=== PATIENT | female | born 1965 | race Caucasian/White ===

== ENCOUNTER 2020-08-23 08:45 | Outpatient (REF) | payer OTHER, SELFPAY ==
[2020-08-23 09:43] LABS: MANUAL DIFF FLAG NO
[2020-08-23 10:00] LABS: Basophils Absolute Auto 0.1 X10*3/uL (0.0-0.2); Basophils Percent Auto 1.4 % (0-2); Eosinophils Absolute Auto 0.2 X10*3/uL (0.0-0.4); Eosinophils Percent Auto 4.2 % (0-4); Glucose Urine UA NEG (NEG); Hematocrit 42.4 % (37-47); Hemoglobin 13.7 g/dl (12.0-16.0); Leukocyte Esterase Urine NEG (NEG); Lymphocytes Absolute Auto 1.6 X10*3/uL (1.2-4.9); Lymphocytes Percent Auto 37.7 % (20-40); Mean Corpuscular HGB Conc 32.3 g/dl (31.0-35.0); Mean Corpuscular Hemoglobin 29.3 pg (27.0-33.0); Mean Corpuscular Volume 90.8 fL (80-98); Mean Platelet Volume 9.8 fL (9.4-12.3); Monocytes Absolute Auto 0.3 X10*3/uL (0.1-1.2); Monocytes Percent Auto 7.4 % (2-11); Neutrophils Absolute Auto 2.1 X10*3/uL (2.0-8.3); Neutrophils Percent Auto 49.3 % (45-73); Nitrite Urine NEG (NEG); PH 6.5 (5.0-8.0); Platelet Count 241 X10*3/uL (160-400); Red Blood Count 4.67 X10*6/uL (4.20-5.50); Red Cell Distribution Width 12.7 % (11.0-16.0); Urine Blood NEG (NEG); Urine Ketones NEG (NEG); Urine Protein NEG (NEG-TRACE); White Blood Count 4.3 X10*3/uL (4.8-10.8)
[2020-08-23 10:01] LABS: Appearance Urine CLEAR; Color Urine YELLOW
[2020-08-23 10:24] LABS: Alanine Aminotransferase 14 U/L (0-31); Albumin Level 4.6 g/dL (3.5-5.0); Alkaline Phosphatase 54 U/L (39-117); Anion Gap 11 (12-20); Aspartate Amino Transferase 17 U/L (5-31); Bilirubin Total 0.4 mg/dL (0.0-1.0); Blood Urea Nitrogen 17 mg/dL (9-16); Calcium 8.8 mg/dL (8.4-10.2); Carbon Dioxide 28 mmol/L (22-29); Chloride 105 mmol/L (96-108); Cholesterol 209 mg/dL; Estimated Glomerular Filt Rate > 60; Glucose Fasting 73 mg/dL (60-99); HDL Cholesterol 55 mg/dL; LDL Cholesterol Calculated 142 mg/dl; Potassium 4.7 mmol/L (3.3-5.1); Sodium 139 mmol/L (135-145); Total Protein 6.5 g/dL (6.5-8.0); Triglycerides 61 mg/dL
[2020-08-27 14:36] LABS: Vitamin D 25-OH, D2 <4 ng/mL; Vitamin D 25-OH, D3 50 ng/mL; Vitamin D 25-OH, Total 50 ng/mL (30-100)
== END 2020-08-23 08:46 | disposition home or self-care (01) ==
LOC: HO.LAB 08:45
PROVIDERS: PCP Internal Medicine; Visit Provider Internal Medicine
DX: R42 Dizziness and giddiness (principal); E78.5 Hyperlipidemia, unspecified; R30.0 Dysuria; E55.9 Vitamin D deficiency, unspecified
CPT/HCPCS: 36415; 80053; 80061; 81003; 82306; 85025

== ENCOUNTER 2020-09-06 09:00 | Outpatient (RCR) | payer OTHER, SELFPAY ==
--- NOTE | 2020-08-28 09:50 | MHC.PT.EP ---
[facility] [place] Office [place] Office [place] Office [address] Abdiel Estrada [address] [phone] F: [phone] F: [phone] F: [phone] F: [phone] Physical Therapy Plan of Care Date of Evaluation: 08/28/20 Date of Surgery: Diagnosis: dizziness and giddiness Assessment: The patient arrived reporting symptoms consistent with BPPV or Vestibular hypofunction. The patient had mild ageotropic nystagmus in the left roll test. Pt was treated with particle repositioning (specifically the BBQ roll for the left.) The patient also has some imbalance on the foam ( soft surface) that may warrant balance therapy. The patient is an excellent candidate for skilled PT Frequency and Duration: The patient will be seen 2x/week x 4 weeks Short Term Goals: 2 weeks 1.Pt to be negative for nystagmus in all diagnostic positions for BPPV to facilitate improved functional movements. Prison Goals: 1. For the patient to be negative for nystagmus or reports of vertigo in all diagnostic positions bilaterally to resolution of BPPV in 4 weeks. 2. For the patient to be able to functionally move in all planes and directions without provocation of dizziness to show return to PLOF. 3.For the patient to be educated on symptoms and indications to return to therapy when needed in 4 weeks. Treatment Plan: Modalities to reduce pain, spasms and effusion. Manual therapy to restore motion and function. Therapeutic exercise to improve strength and flexibility. Neuromuscular re-education for posture and balance. Therapeutic activities to return to functional activities of daily living. Electronically signed by: Jennifer Holley PT DPT Please sign and return to therapist. Thank you for your referral.
--- NOTE | 2020-09-06 13:48 | MHC.PT.DC ---
[facility] [place] Office [place] Office [place] Office [address] Abdiel Estrada [address] [phone] F: [phone] F: [phone] F: [phone] F: [phone] Physical Therapy Discharge Report Diagnosis: dizziness and giddiness Date of Surgery: Date of Evaluation: 08/28/20 Date of Discharge: Treatments to Date: 2 Cancellations to Date: No Shows to Date: Discharge Status: Achieved Goals Improved Function Independent with HEP Discharge Summary: Pt was negative for BPPV today. Her VOR was normal. She had imbalance and reports of dizziness with balance activities most notable diagonal movements moving up and to the right. The patient was given a HEP to address her minor balance impairments and she was educated to return as needed for treatment of BPPV. Electronically signed by: Jennifer Holley PT DPT Please sign and return to therapist. Thank you for your referral.
== END 2020-09-06 13:49 | disposition other institution (70) ==
LOC: HO.PT 09:00
PROVIDERS: PCP Internal Medicine; Visit Provider Internal Medicine
DX: R42 Dizziness and giddiness (principal)
CPT/HCPCS: 95992; 97112; 97161

== ENCOUNTER → 2020-09-11 11:12 | Outpatient (BNVA) | payer OTHER, SELFPAY | PROVIDERS: PCP Internal Medicine; Visit Provider Advanced Practice Midwife ==

== ENCOUNTER 2020-09-12 07:52 | Outpatient (REF) | payer OTHER, SELFPAY ==
--- NOTE | ~2020-09-12 | US_ITS ---
EXAMINATION: US ABDOMEN COMPLETE CLINICAL INFORMATION: Abdominal swelling. COMPARISON: CT abdomen and pelvis noncontrast 09/11/2014, renal ultrasound 07/14/2013 TECHNIQUE: Real-time imaging of the abdominal viscera. FINDINGS: PANCREAS: The pancreas is normal in size and contour and echogenicity. There is no pancreatic ductal distention or retroperitoneal effusion. ABDOMINAL AORTA: The proximal, mid, and distal segments are normal in caliber. INFERIOR VENA CAVA: Visualized portions are normal. LIVER: Normal. The liver is normal in size. The liver contour is normal. Parenchymal echogenicity is normal. No focal hepatic lesion. There is no intrahepatic biliary duct dilatation seen. GALLBLADDER: Normal. The gallbladder is physiologically distended without evidence of stones, sludge, polyps, wall thickening or pericholecystic fluid. COMMON BILE DUCT: Normal in caliber measuring 0.4 cm in diameter. RIGHT KIDNEY: Normal. No hydronephrosis. No visible renal calculi or focal parenchymal lesions. The kidney measures 10.3 cm in maximum dimension. LEFT KIDNEY: No hydronephrosis or focal parenchymal lesions. The kidney measures 10.7 cm in maximum dimension. There is a specular echo with twinkling artifact on color Doppler left lower pole 0.3 cm consistent with nonobstructing calculus. SPLEEN: Normal. The spleen measures 10.4 cm in maximum dimension. FREE FLUID: None. US/US abdomen complete IMPRESSION: 1. Liver, pancreas, spleen, and right kidney unremarkable. 2. Small nonobstructing calculus left renal lower pole 0.3 cm. No hydronephrosis. 3. No ascites.
[2020-09-12 09:05] LABS: MANUAL DIFF FLAG NO
[2020-09-12 09:14] LABS: Basophils Absolute Auto 0.1 X10*3/uL (0.0-0.2); Basophils Percent Auto 1.3 % (0-2); Eosinophils Absolute Auto 0.1 X10*3/uL (0.0-0.4); Eosinophils Percent Auto 2.8 % (0-4); Hematocrit 42.2 % (37-47); Hemoglobin 13.3 g/dl (12.0-16.0); Imm Gran Abs Auto 0.01 X10*3/uL (0.00-0.03); Imm Gran Pct Auto 0.2 % (0.0-0.4); Lymphocytes Absolute Auto 1.7 X10*3/uL (1.2-4.9); Lymphocytes Percent Auto 37.4 % (20-40); Mean Corpuscular HGB Conc 31.5 g/dl (31.0-35.0); Mean Corpuscular Hemoglobin 28.7 pg (27.0-33.0); Mean Corpuscular Volume 90.9 fL (80-98); Mean Platelet Volume 9.6 fL (9.4-12.3); Monocytes Absolute Auto 0.3 X10*3/uL (0.1-1.2); Neutrophils Absolute Auto 2.4 X10*3/uL (2.0-8.3); Neutrophils Percent Auto 51.3 % (45-73); Platelet Count 247 X10*3/uL (160-400); Red Blood Count 4.64 X10*6/uL (4.20-5.50); Red Cell Distribution Width 12.6 % (11.0-16.0); White Blood Count 4.6 X10*3/uL (4.8-10.8)
[2020-09-12 09:53] LABS: TSH reflex Free T4 0.77 uIU/mL (0.32-4.0)
== END 2020-09-12 07:53 | disposition home or self-care (01) ==
LOC: HO.US 07:52
PROVIDERS: PCP Internal Medicine; Visit Provider Internal Medicine
DX: R19.00 Intra-abdominal and pelvic swelling, mass and lump, unspecified site (principal); R63.4 Abnormal weight loss; D72.819 Decreased white blood cell count, unspecified
CPT/HCPCS: 36415; 76700; 84443; 85025

== ENCOUNTER 2020-09-18 12:08 | Outpatient (REF) | payer OTHER, SELFPAY ==
--- NOTE | ~2020-09-18 | MM_ITS ---
EXAMINATION: MM SCREENING DIGITAL BREAST TOMOSYNTHESIS, BILATERAL CLINICAL INFORMATION: Screening. Asymptomatic. The lifetime risk of breast cancer based on the Tyrer-Cuzick Model is 6%. COMPARISON: Mammography: 09/13/2019, 07/19/2018, 06/25/2017 TECHNIQUE: Digital breast tomosynthesis is performed in both the craniocaudal and mediolateral oblique views along with computer-aided detection (CAD). Synthesized 2D images are generated from the tomosynthesis. FINDINGS: There are scattered areas of fibroglandular density (ACR BI-RADS breast composition Category b). There are no significant masses, abnormal calcifications, or other abnormalities. Parenchymal pattern is similar to prior studies. The axilla and skin contours are unremarkable. MM/MM tomosynthesis screening BI IMPRESSION: No mammographic evidence of malignancy. ASSESSMENT: BI-RADS 1: Negative RECOMMENDATION: Routine annual mammography screening. This patient's information was entered into a reminder system with a target due date for their next mammogram.
== END 2020-09-18 12:09 | disposition home or self-care (01) ==
LOC: HO.MAMMO 12:08
PROVIDERS: PCP Internal Medicine; Visit Provider Internal Medicine
DX: Z12.31 Encounter for screening mammogram for malignant neoplasm of breast (principal)
CPT/HCPCS: 77063; 77067

== ENCOUNTER 2021-03-18 17:21 | Outpatient (REF) | payer OTHER, SELFPAY ==
--- NOTE | ~2021-03-18 | XR_ITS ---
EXAMINATION: XR KNEE, RIGHT CLINICAL INFORMATION: Pain COMPARISON: Previous x-ray February 2013 TECHNIQUE: Four views of the right knee. FINDINGS: Bone alignment is normal. No fracture or dislocation is seen. The joint spaces are normal. There is no joint effusion. XR/XR knee RT 3V IMPRESSION: Normal right knee.
== END 2021-03-18 17:22 | disposition home or self-care (01) ==
LOC: HO.XRAY 17:21
PROVIDERS: PCP Internal Medicine; Visit Provider Internal Medicine
DX: M25.561 Pain in right knee (principal)
CPT/HCPCS: 73562

== ENCOUNTER 2021-03-26 08:33 | Outpatient (REF) | payer OTHER, SELFPAY ==
[2021-03-26 10:00] LABS: MANUAL DIFF FLAG NO
[2021-03-26 10:10] LABS: Basophils Absolute Auto 0.1 X10*3/uL (0.0-0.2); Eosinophils Absolute Auto 0.1 X10*3/uL (0.0-0.4); Eosinophils Percent Auto 2.1 % (0-4); Hematocrit 40.5 % (37-47); Hemoglobin 13.1 g/dl (12.0-16.0); Imm Gran Abs Auto 0.01 X10*3/uL (0.00-0.03); Imm Gran Pct Auto 0.2 % (0.0-0.4); Lymphocytes Absolute Auto 1.8 X10*3/uL (1.2-4.9); Lymphocytes Percent Auto 37.7 % (20-40); Mean Corpuscular HGB Conc 32.3 g/dl (31.0-35.0); Mean Corpuscular Hemoglobin 29.6 pg (27.0-33.0); Mean Corpuscular Volume 91.4 fL (80-98); Mean Platelet Volume 10.2 fL (9.4-12.3); Monocytes Absolute Auto 0.4 X10*3/uL (0.1-1.2); Monocytes Percent Auto 9.1 % (2-11); Neutrophils Absolute Auto 2.4 X10*3/uL (2.0-8.3); Neutrophils Percent Auto 49.9 % (45-73); Platelet Count 238 X10*3/uL (160-400); Red Blood Count 4.43 X10*6/uL (4.20-5.50); Red Cell Distribution Width 12.6 % (11.0-16.0); White Blood Count 4.9 X10*3/uL (4.8-10.8)
[2021-03-26 10:32] LABS: Alanine Aminotransferase 19 U/L (0-31); Albumin Level 4.3 g/dL (3.5-5.0); Alkaline Phosphatase 59 U/L (39-117); Anion Gap 12 (12-20); Aspartate Amino Transferase 26 U/L (5-31); Bilirubin Total 0.6 mg/dL (0.0-1.0); Blood Urea Nitrogen 14 mg/dL (9-16); Calcium 9.2 mg/dL (8.4-10.2); Carbon Dioxide 25 mmol/L (22-29); Chloride 107 mmol/L (96-108); Estimated Glomerular Filt Rate > 60; Glucose Random 76 mg/dL (60-115); Potassium 5.3 mmol/L (3.3-5.1); Sodium 139 mmol/L (135-145); Total Protein 6.7 g/dL (6.5-8.0)
[2021-03-26 10:50] LABS: Vitamin B12 732 pg/mL (200-900)
[2021-03-26 10:54] LABS: Vitamin D 25-OH Total 50.6 ng/mL (>30)
[2021-03-26 11:25] LABS: Ferritin 33 ng/mL (10-250)
== END 2021-03-26 08:34 | disposition home or self-care (01) ==
LOC: HO.LAB 08:33
PROVIDERS: PCP Internal Medicine; Visit Provider Psychiatry & Neurology Neurology
DX: G47.62 Sleep related leg cramps (principal); R06.83 Snoring; R06.81 Apnea, not elsewhere classified; M25.561 Pain in right knee
CPT/HCPCS: 36415; 80053; 82306; 82607; 82728; 84443; 85025; 99202

== ENCOUNTER → 2021-04-24 16:01 | Outpatient (REF) | payer OTHER, SELFPAY | LOC: HO.SL 16:01 | PROVIDERS: PCP Student in an Organized Health Care Education/Training Program; Visit Provider Psychiatry & Neurology Neurology | DX: R06.81 Apnea, not elsewhere classified (principal) | CPT/HCPCS: 95806 ==

== ENCOUNTER 2021-04-25 16:00 | Outpatient (RCR) | payer OTHER, SELFPAY ==
--- NOTE | 2021-04-04 15:22 | MHC.PT.EP ---
[facility] [place] Office [place] Office [place] Office [address] Abdiel Estrada [address] [phone] F: [phone] F: [phone] F: [phone] F: [phone] Physical Therapy Plan of Care Date of Evaluation: Date of Surgery: n/a Diagnosis: R knee pain Assessment: Patient is a 55 year old female presenting to PT with complaints of pain in B knees R>L. Pt reports onset of pain began about 2 weeks ago that began shortly after a fall in the shower. She presents today with impairments in pain, quad muscle length, hs muscle length, +ttp patella tendon, and hip strength. 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 Pt expresses skilled nursing goal of learning exercises and stretches to prevent further exacerbation of pain, and is motivated to work towards this in PT. Clinical presentation today is most consistent with signs and sx associated with B possible patella tendonitis and pt will benefit from skilled PT to address the following problems and impairments noted upon evaluation: pain, quad muscle length, hs muscle length, +ttp patella tendon, and hip strength. These problems limit the patient with the following functional activities: ambulation, stair negotiation, kneeling, squatting, work, and biking. The prescribed treatment plan of care is medically necessary. Co-morbidities of none were identified and taken into considerations of plan of care. Pt was educated on HEP, role of PT, prognosis, POC. Frequency and Duration: The patient will be seen 2x week x 4 weeks Short Term Goals: Pt will demonstrate negative prone quest test in 2 weeks. Pt will demonstrate improved hs length in 2 weeks. Pt will demonstrate improved hip strength by 1/3 MMT for improved lumbopelvic stability in 2 weeks. Pt will demonstrate only minimal ttp to patella tendon in 2 weeks. Group Home Goals: Pt will demonstrate good squat mechanics with minimal pain in 4 weeks for improved tolerance to work positions. Pt will demonstrate ability to negotiate stairs with min to no pain in 4 weeks for improved access to her home. Pt will demonstrate ability to complete all leisure and ADL activities with min to no pain in 4 weeks for return to PLOF. Pt will demonstrate improved LEFI score by 9 points in 4 weeks for overall improved functional mobility. Treatment Plan: Modalities to reduce pain, spasms and effusion. Manual therapy to restore motion and function. Therapeutic exercise to improve strength and flexibility. Neuromuscular re-education for posture and balance. Therapeutic activities to return to functional activities of daily living. Electronically signed by: Aida Gann, PT, DPT, ATC Please sign and return to therapist. Thank you for your referral.
--- NOTE | 2021-04-25 16:51 | MHC.PT.DC ---
[facility] [place] Office [place] Office [place] Office [address] [phone] F: [phone] F: [phone] F: [phone] F: [phone] Physical Therapy Discharge Report Diagnosis: R knee pain Date of Surgery: n/a Date of Evaluation: 04/04/21 Date of Discharge: 04/25/21 Treatments to Date: 7 Cancellations to Date: 0 No Shows to Date: 0 Discharge Status: Achieved Goals Improved Function Independent with HEP Discharge Summary: Pt has made very good progress since beginning PT. She is no longer having pain and has met all her objective and functional goals. She is independent and compliant with her HEP and she is happy with her progress at this point. Max benefits of PT have been provided and skilled PT is no longer indicated at this time. Pt is in agreement with d/c today. Electronically signed by: Aida Gann, PT, DPT, ATC Please sign and return to therapist. Thank you for your referral.
== END 2021-04-25 16:51 | disposition home or self-care (01) ==
LOC: HO.PT 16:00
PROVIDERS: PCP Internal Medicine; Visit Provider Internal Medicine
DX: M25.561 Pain in right knee (principal)
CPT/HCPCS: 97110; 97140; 97161

== ENCOUNTER → 2021-06-18 11:32 | Outpatient (BNVA) | payer OTHER, SELFPAY | PROVIDERS: PCP Internal Medicine; Referring Provider Internal Medicine; Visit Provider Psychiatry & Neurology Neurology | DX: G47.62 Sleep related leg cramps (principal); R06.83 Snoring | CPT/HCPCS: 99212 ==

== ENCOUNTER 2021-09-05 06:24 | Outpatient (REF) | payer OTHER, SELFPAY ==
[2021-09-05 07:23] LABS: Appearance Urine CLOUDY; Color Urine YELLOW; Glucose Urine UA NEG (NEG); Leukocyte Esterase Urine NEG (NEG); Nitrite Urine NEG (NEG); PH 7.5 (5.0-8.0); Urine Blood NEG (NEG); Urine Ketones NEG (NEG); Urine Protein TRACE MG/DL (NEG-TRACE)
[2021-09-05 08:04] LABS: Alanine Aminotransferase 12 U/L (0-31); Albumin Level 4.1 g/dL (3.5-5.0); Alkaline Phosphatase 67 U/L (39-117); Anion Gap 9 (12-20); Aspartate Amino Transferase 16 U/L (5-31); Bilirubin Total 0.4 mg/dL (0.0-1.0); Blood Urea Nitrogen 17 mg/dL (9-16); Calcium 9.2 mg/dL (8.4-10.2); Carbon Dioxide 31 mmol/L (22-29); Chloride 105 mmol/L (96-108); Cholesterol 190 mg/dL; Estimated Glomerular Filt Rate > 60; Glucose Fasting 74 mg/dL (60-99); HDL Cholesterol 57 mg/dL; LDL Cholesterol Calculated 119 mg/dl; Potassium 4.7 mmol/L (3.3-5.1); Sodium 140 mmol/L (135-145); Total Protein 6.1 g/dL (6.5-8.0); Triglycerides 74 mg/dL
== END 2021-09-05 06:25 | disposition home or self-care (01) ==
LOC: HO.LAB 06:24
PROVIDERS: PCP Internal Medicine; Visit Provider Internal Medicine
DX: Z00.00 Encounter for general adult medical examination without abnormal findings (principal); E78.5 Hyperlipidemia, unspecified; R30.0 Dysuria
CPT/HCPCS: 36415; 80053; 80061; 81003

== ENCOUNTER → 2021-09-12 08:15 | Outpatient (BNVA) | payer OTHER, SELFPAY | PROVIDERS: PCP Internal Medicine; Visit Provider Advanced Practice Midwife ==

== ENCOUNTER 2021-09-24 09:00 | Outpatient (REF) | payer OTHER, SELFPAY ==
--- NOTE | ~2021-09-24 | MM_ITS ---
EXAMINATION: MM SCREENING DIGITAL BREAST TOMOSYNTHESIS, BILATERAL CLINICAL INFORMATION: Screening. Asymptomatic. The lifetime risk of breast cancer based on the Tyrer-Cuzick Model is 6.7%. COMPARISON: Mammography: September 18, 2020 and studies dating back to April 29, 2014 TECHNIQUE: Digital breast tomosynthesis is performed in both the craniocaudal and mediolateral oblique views along with computer-aided detection (CAD). Synthesized 2D images are generated from the tomosynthesis. FINDINGS: The breasts are heterogeneously dense, which may obscure small masses (ACR BI-RADS breast composition Category c). There are no significant masses, abnormal calcifications, or other abnormalities. MM/MM tomosynthesis screening BI IMPRESSION: There are no significant changes from prior study. ASSESSMENT: BI-RADS 1: Negative RECOMMENDATION: Routine annual mammography screening. This patient's information was entered into a reminder system with a target due date for their next mammogram.
== END 2021-09-24 09:01 | disposition home or self-care (01) ==
LOC: HO.MAMMO 09:00
PROVIDERS: Visit Provider Internal Medicine
DX: Z12.31 Encounter for screening mammogram for malignant neoplasm of breast (principal)
CPT/HCPCS: 77063; 77067

== ENCOUNTER 2021-10-17 15:45 | Outpatient (REF) | payer OTHER, SELFPAY ==
--- NOTE | ~2021-10-17 | MR_ITS ---
EXAMINATION: MR FOOT WITHOUT AND WITH CONTRAST, LEFT CLINICAL INFORMATION: Distal 1st digit wound. Pain. Evaluate for osteomyelitis. COMPARISON: Left ankle radiographs dated 06/06/2014. TECHNIQUE: Multisequence MR imaging of the left foot was obtained before and after the IV administration of 5.5 mL Gadavist contrast on a high-field strength scanner. FINDINGS: BONE: Articular cartilage thinning/loss with small marginal osteophytes at the 1st metatarsophalangeal joint and hallux sesamoids. Minimal underlying subchondral cystic change. Full-thickness articular cartilage loss with prominent underlying subchondral cystic change at the 2nd tarsometatarsal joint with more mild degenerative changes at the 3rd tarsometatarsal joint. No stress reaction, fracture, or avascular necrosis. Minimal postcontrast enhancement along the dorsal/lateral aspect of the 1st metatarsal head which is likely degenerative. Very early osteomyelitis cannot be entirely excluded in the appropriate clinical setting given the adjacent soft tissue wound. MUSCLES/TENDONS: The visualized flexor and extensor tendons are intact. LIGAMENTS: The Lisfranc ligament is intact. SOFT TISSUES: Soft tissue wound along the medial aspect of the 1st metatarsophalangeal joint without significant subcutaneous edema or soft tissue enhancement. No organized fluid collection/abscess formation. MR/MR foot LT wo/w con IMPRESSION: 1. Soft tissue ulceration along the medial aspect of the 1st metatarsophalangeal joint without significant inflammatory change or abscess formation. 2. Mild osteoarthritis at the 1st metatarsophalangeal joint and hallux sesamoids. There is a small focus of marrow enhancement along the dorsal/lateral aspect of the 1st metatarsal head which is likely related to degenerative cystic change. Very early osteomyelitis cannot be entirely excluded given the adjacent soft tissue ulceration, however, is thought less likely due to the lack of soft tissue edema or abscess formation. 3. Severe osteoarthritis at the 2nd tarsometatarsal joint with more mild osteoarthritis at the 3rd tarsometatarsal joint.
== END 2021-10-17 15:46 | disposition home or self-care (01) ==
LOC: HO.MRI 15:45
PROVIDERS: Visit Provider Internal Medicine
DX: M86.9 Osteomyelitis, unspecified (principal)
CPT/HCPCS: 73720; A9585

== ENCOUNTER 2022-02-14 09:42 | Outpatient (REF) | payer OTHER, SELFPAY ==
--- NOTE | ~2022-02-14 | MR_ITS ---
EXAMINATION: MRI OF THE LEFT FOOT WITH AND WITHOUT CONTRAST CLINICAL INFORMATION: Follow-up post osteomyelitis. COMPARISON: 10/17/2021. TECHNIQUE: Multiplanar MR imaging was obtained through the left forefoot and midfoot on a 1.5 Lina magnet before and after intravenous administration of 5.5 cc Gadavist. FINDINGS: Soft tissue wound at the dorsomedial aspect of the 1st MTP joint is less pronounced as greater prior. There is skin thickening and edema signal in this region. Underlying marrow at the 1st metatarsal head is normal in signal intensity without appreciable edema signal to suggest osteomyelitis. Osteoarthritis at the 1st MTP joint is again noted with nonuniform cartilage loss and marginal osteophytes. Hallux valgus is noted with lateral subluxation of the hallux sesamoids. Postsurgical changes are again seen at the 1st metatarsal related to prior osteotomy. Severe osteoarthritis is again noted at the 2nd TMT joint with marked cartilage loss, subareolar cystic change, cortical irregularity, and subchondral edema signal. More kzrx-me-ijqmswyw osteophyte is present in the 3rd TMT joint and mild osteoarthritis at the other tarsometatarsal joints. Other MTP and interphalangeal joints appear relatively well preserved. No acute osseous abnormalities at the other joints. There is an adventitious bursa at the plantar aspect of the 5th metatarsal head without adventitious bursitis. A Larson's neuroma is suspected at the third interspace (image 20/32 of series 7) measuring 1.1 x 0.4 cm in cross-section, interposed between the 3rd and 4th MTP joints. MR/MR foot LT wo/w con IMPRESSION: 1. No appreciable findings of osteomyelitis or septic arthritis at the 1st MTP joint. Unchanged 1st MTP osteoarthritis 2. Severe 2nd TMT osteoarthritis with more mild 3rd TMT osteoarthritis. 3. 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
== END 2022-02-14 09:43 | disposition home or self-care (01) ==
LOC: HO.MRI 09:42
PROVIDERS: Visit Provider Internal Medicine Infectious Disease
DX: M86.9 Osteomyelitis, unspecified (principal)
CPT/HCPCS: 73720; A9585

== ENCOUNTER 2022-10-23 14:35 | Outpatient (REF) | payer OTHER, SELFPAY ==
--- NOTE | ~2022-10-23 | MM_ITS ---
EXAMINATION: BONE DENSITOMETRY CLINICAL INDICATION: Menopause. COMPARISON: This is the patient's baseline examination. TECHNIQUE: Using a [employer] DXA System (software version: 13.1) manufactured by [employer], dual-energy x-ray absorptiometry was performed of the lumbar spine and left hip. The images are of good technical quality. Summary results are attached. FINDINGS: AP SPINE L1-L4: BMD 0.800 g/cm2, Z-score -1.9, T-score -3.2, osteoporosis. LEFT FEMUR, NECK: BMD 0.715 g/cm2, Z-score -1.0, T-score -2.3, osteopenia. LEFT FEMUR, TOTAL: BMD 0.759 g/cm2, Z-score -1.0, T-score -2.0, osteopenia. IDENTIFIED RISK FACTORS: Menopause. HISTORY OF FRACTURE: None listed. MEDICATIONS: Vitamin D. MM/XR DEXA axial skeleton IMPRESSION: 1. DIAGNOSIS: Osteoporosis based on the lowest T-score value of -3.2 in the lumbar spine applying World Health Organization criteria. 2. 10-YEAR FRACTURE RISK PREDICTION, FRAX: According to the guidelines, FRAX calculation should only be performed on patients in the osteopenia bone density category. Therefore, FRAX was not performed on this patient. 3. Treatment Recommendations: NOF guidelines recommend consideration for treatment in postmenopausal women and men age 50 and older presenting with the following: -A hip or vertebral (clinical or morphometric) fracture. -T-score less than or equal to -2.5 at the femoral neck or spine after appropriate evaluation to exclude secondary causes. -Low bone mass at the hip or spine and a 10-year fracture probability by FRAX of greater than or equal to 3% for hip fracture or greater than or equal to 20% for major osteoporotic fracture based on the [place] adapted WHO algorithm. 4. Other Recommendations: All treatment decisions require clinical judgment and consideration of individual patient factors, including patient preferences, comorbidities, previous drug use, risk factors not captured in the FRAX model (e.g. frailty, falls, vitamin D deficiency, increased bone turnover, interval significant decline in bone density) and possible under or overestimation of fracture risk by FRAX. Additional medical evaluation for secondary cause of low bone mineral density may be appropriate. FUTURE SCAN RECOMMENDATION: People with diagnosed cases of osteoporosis or at high risk for fracture should have regular bone mineral density tests. For patients eligible for Medicare, routine testing is allowed once every 2 years. The testing frequency can be increased to one year for patients who have rapidly progressing disease, those who are receiving or discontinuing medical therapy to restore bone mass, or have additional risk factors.
--- NOTE | ~2022-10-23 | MM_ITS ---
EXAMINATION: MM SCREENING DIGITAL BREAST TOMOSYNTHESIS, BILATERAL CLINICAL INFORMATION: Screening. Asymptomatic. The lifetime risk of breast cancer based on the Tyrer-Cuzick Model is 7.6%. COMPARISON: Mammography: September 24, 2021 and studies dating back to June 18, 2016 TECHNIQUE: Digital breast tomosynthesis is performed in both the craniocaudal and mediolateral oblique views along with computer-aided detection (CAD). Synthesized 2D images are generated from the tomosynthesis. FINDINGS: The breasts are heterogeneously dense, which may obscure small masses (ACR BI-RADS breast composition Category c). There are no significant masses, abnormal calcifications, or other abnormalities. MM/MM tomosynthesis screening BI IMPRESSION: No significant changes ASSESSMENT: BI-RADS 1: Negative RECOMMENDATION: Routine annual mammography screening. This patient's information was entered into a reminder system with a target due date for their next mammogram.
== END 2022-10-23 14:36 | disposition home or self-care (01) ==
LOC: HO.MAMMO 14:35
PROVIDERS: PCP Internal Medicine; Visit Provider Internal Medicine
DX: Z12.31 Encounter for screening mammogram for malignant neoplasm of breast (principal); N95.9 Unspecified menopausal and perimenopausal disorder
CPT/HCPCS: 77063; 77067; 77080

== ENCOUNTER 2022-11-04 06:16 | Outpatient (REF) | payer OTHER, SELFPAY ==
[2022-11-04 06:31] LABS: MANUAL DIFF FLAG NO
[2022-11-04 07:35] LABS: Basophils Absolute Auto 0.1 X10*3/uL (0.0-0.2); Basophils Percent Auto 1.4 % (0-2); Eosinophils Absolute Auto 0.1 X10*3/uL (0.0-0.4); Eosinophils Percent Auto 3.2 % (0-4); Hematocrit 41.3 % (37.0-47.0); Hemoglobin 13.3 g/dl (12.0-16.0); Imm Gran Abs Auto 0.01 X10*3/uL (0.00-0.03); Imm Gran Pct Auto 0.2 % (0.0-0.4); Lymphocytes Absolute Auto 1.8 X10*3/uL (1.2-4.9); Lymphocytes Percent Auto 41.4 % (20-40); Mean Corpuscular HGB Conc 32.2 g/dl (31.0-35.0); Mean Corpuscular Hemoglobin 29.8 pg (27.0-33.0); Mean Corpuscular Volume 92.4 fL (80.0-98.0); Mean Platelet Volume 9.7 fL (9.4-12.3); Monocytes Absolute Auto 0.3 X10*3/uL (0.1-1.2); Neutrophils Absolute Auto 2.1 x10*3/uL (2.0-8.3); Neutrophils Percent Auto 46.8 % (45-73); Platelet Count 225 X10*3/uL (160-400); Red Blood Count 4.47 X10*6/uL (4.20-5.50); Red Cell Distribution Width 12.8 % (11.0-16.0); White Blood Count 4.4 X10*3/uL (4.8-10.8)
[2022-11-04 08:09] LABS: Alanine Aminotransferase 14 U/L (0-31); Alkaline Phosphatase 60 U/L (39-117); Anion Gap 11 (12-20); Aspartate Amino Transferase 16 U/L (5-31); Bilirubin Total 0.4 mg/dL (0.0-1.0); Blood Urea Nitrogen 23 mg/dL (9-16); Calcium 8.8 mg/dL (8.4-10.2); Carbon Dioxide 28 mmol/L (22-29); Chloride 109 mmol/L (96-108); Cholesterol 198 mg/dL; Estimated Glomerular Filt Rate > 60; Glucose Fasting 75 mg/dL (60-99); HDL Cholesterol 52 mg/dL; LDL Cholesterol Calculated 131 mg/dl; Potassium 4.6 mmol/L (3.3-5.1); Sodium 143 mmol/L (135-145); Total Protein 5.9 g/dL (6.5-8.0); Triglycerides 75 mg/dL
[2022-11-04 08:12] LABS: Thyroid Stimulating Hormone 1.85 uIU/mL (0.32-4.0)
[2022-11-05 16:13] LABS: Calcium (PTHI) 9.5 mg/dL (8.6-10.4); PTHI 40 pg/mL (16-77)
[2022-11-08 15:33] LABS: Collagen Type I C-Telopeptide 378 pg/mL (see note)
[2022-11-10 16:39] LABS: Calcium, 24 Hr Urine 315 mg/24 h; Calcium/Creatinine Ratio 318 mg/g creat (30-275); Creatinine 24Hr Urine 0.99 g/24 h (0.50-2.15)
== END 2022-11-04 06:17 | disposition home or self-care (01) ==
LOC: HO.LAB 06:16
PROVIDERS: PCP Internal Medicine; Visit Provider Internal Medicine
DX: Z00.00 Encounter for general adult medical examination without abnormal findings (principal); M81.0 Age-related osteoporosis without current pathological fracture; E55.9 Vitamin D deficiency, unspecified; D64.9 Anemia, unspecified; E78.5 Hyperlipidemia, unspecified
CPT/HCPCS: 36415; 80053; 80061; 82306; 82340; 82523; 83970; 84443; 85025

== ENCOUNTER 2023-01-20 13:54 | Outpatient (AMB) | payer OTHER, SELFPAY ==
--- NOTE | 2023-01-20 13:59 | A.OFFVIS_ITS ---
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 Scribed for ANNEL Mejía by Juliann Sin medical technologist prn, on 01/20/2023 at 2:15 pm EST. Personal Vehicle Advisor Required: No Information Interpreted: non-clinical & clinical Swimming Professor: Swimming Professor Present (Aidyn) Allergies No Known Allergies [No Known Allergies*] Allergy (Verified 01/20/23 14:04) Is last menstrual period known: No Post menopausal: Yes HPI HPI Comments History of Present Illness Details She is a postmenopausal woman presenting for annual exam with complains of vaginal dryness, and pain during intimacy. Has used Replens in the past. Currently sexually active. Denies vaginal itching and irritation. Patient admits she tries to eat a healthy diet including Calcium and Vitamin D. She stays active with exercise. Denies family hx of colon and ovarian cancer. Last pap smear 11/01/18. Last mammogram 10/23/22. UTD on colonoscopy. [facility] Medical History Back pain Bunion, left COVID-19 Leukopenia Menopausal vaginal dryness Mild major depression, single episode Physical exam Right knee pain Snoring Toe ulcer Unintentional weight loss Vertigo Surgical History History of bunionectomy History of inguinal hernia repair History of tonsillectomy History of tubal ligation Family History Father Lung cancer Mother COPD (chronic obstructive pulmonary disease) Stroke Lung cancer Paternal Aunt Breast cancer Daughter In good health Family/Other Substance use disorder Mental health disorder Social History Housing: House Alcohol intake: former Patient Tobacco Use Status: Former Tobacco user Tobacco use type: Cigarette e-Cigarette/Vaping Use: Never Used Second Hand Smoke Exposure: No service: Yes Current occupational status: employed 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/hazards: No Cognitive needs: No Hearing needs: No Vision needs: Yes (reading glasses) Female Reproductive History Menstrual Age of Menarche: 13 control method: permanent sterilization Total pregnancies: 3 Full term: 3 Number of Living Children: 3 Date of last pap smear: 11/01/18 (negative) History of abnormal pap smear: No Date of Mammogram: 10/23/22 Date of last Bone Density Screenin10/23/22 Physical Exam Vital Signs: Last Vital Signs BP 112/60 01/20/23 14:00 BMI result Body Mass Index 21.6 Const General: cooperative, healthy appearing, no acute distress, well developed and alert Orientation/consciousness: patient oriented x3 HEENT Head: Yes normal to inspection Eyes General: appearance normal, both eyes and all related structures Neck Neck: Yes normal visual inspection Thyroid: Thyroid normal Chest Chest palpation & inspection: normal inspection of the chest Breast/axilla inspection: normal inspection of the breasts (no puckering, dimpling, peau de orange, retraction, discharge, masses) Breast/axilla palpation: normal palpation of the breasts Resp Effort & Inspection: normal respiratory effort GI Inspection: Yes normal to inspection Palpation (GI): Soft to palpation (to palpation) Rectal Exam - Female: deferred General: Yes bladder normal to inspection External Female Exam: normal external appearance and normal appearance of the urethra Speculum Exam - Vagina: normal appearance of the vagina, normal palpation, vagina atrophic (pale) and other (shorter length on right side) Speculum Exam - Cervix: normal appearance of the cervix and normal palpation Bimanual exam- vagina & uterus: normal palpation and normal palpation Bimanual Exam- Adnexa, other: normal adnexae and no masses Skin General skin exam: no rashes or lesions noted Neuro General: patient oriented x3 Cognition (Neuro): normal cognition Extrem General: Yes normal to inspection Psych Attitude: cooperative Thought process: Normal thought process present Thought content: Normal thought content present Assessment & Plan Assessment & Plan (1) Encounter for well woman exam: Code(s): Z01.419 - Encounter for gynecological examination (general) (routine) without abnormal findings Plan: Discussed: Current recommendations for pap smears per ASCCP guidelines. Breast awareness and periodic self breast exams. Encouraged yearly mammograms. Maintaining a healthy lifestyle including a well balanced diet including Calcium and Vitamin D and routine exercise. Recommend Replens (for 12 weeks), lubricants or coconut oil for vaginal dryness. Estrogen use: not interested at this time. Contact office with any PMB. All of her questions and concerns were addressed to the best of my ability RTO in 1 year for AG. (2) Menopausal vaginal dryness: Code(s): N95.1 - Menopausal and female climacteric states Coding Level of Care Code Est Pt Prev Care 40-64y(73177) Diagnoses Encounter for well woman exam Z01.419 Menopausal vaginal dryness N95.1
[2023-01-20 14:00] VITALS: BP 112/60; BMI 21.6
== END 2023-01-20 14:38 | disposition home or self-care (01) ==
LOC: HO.HWS 13:54
PROVIDERS: PCP Internal Medicine; Visit Provider Advanced Practice Midwife
DX: Z01.419 Encounter for gynecological examination (general) (routine) without abnormal findings (principal); N95.1 Menopausal and female climacteric states
CPT/HCPCS: 99396

== ENCOUNTER → 2023-01-20 13:54 | Outpatient (BNVA) | payer OTHER, SELFPAY | PROVIDERS: PCP Internal Medicine; Visit Provider Advanced Practice Midwife ==

== ENCOUNTER 2023-02-16 16:02 | Outpatient (AMB) | payer OTHER, SELFPAY ==
--- NOTE | 2023-02-16 17:00 | MHC.OFFWIV ---
Intake Vital Signs 02/16/23 17:06 Height 5 ft 4 in Weight 122 lb BMI 20.9 BP 104/76 Blood Pressure Location Rt brachial Position Sitting Pulse 66 Pulse Source Pulse Oximeter Temp 99.1 F Temp Source Temporal Artery Scan Pulse Oximetry (%) 99 Intake Visit Reasons: EP ?UTI Intake Note: pt is hre for c/o of uti Patient Tobacco Use Status: Former Tobacco user Allergies No Known Allergies [No Known Allergies*] Allergy (Verified 02/16/23 19:14) Medication List - Last Reconciled 02/16/23 by Yash Blankenship MD alendronate 70 mg PO QWEEK 30 days fluconazole (Diflucan) 150 mg PO Q3D 2 doses meclizine 25 mg PO TID PRN 30 days tizanidine 4 mg PO BEDTIME PRN 30 days tramadol 50 mg PO Q12H PRN 30 days Do you need a note to return to daycare/school/sports/work: No HPI EP ?UTI HPI Details 57-year-old female presents to the office for a sick visit. Patient is complaining of excessive vaginal discharge in the last few days. Symptoms started suddenly. Reports no itching. Discharge is mostly yellow in color. She feels a pressure in the pelvic area. Also complaining of increased frequency of urination. Not very sexually active, single partner in a committed relationship. [facility] Medical History Back pain Bunion, left COVID-19 Leukopenia Menopausal vaginal dryness Mild major depression, single episode Physical exam Right knee pain Snoring Toe ulcer Unintentional weight loss Vertigo Surgical History History of bunionectomy History of inguinal hernia repair History of tonsillectomy History of tubal ligation Family History Father Lung cancer Mother COPD (chronic obstructive pulmonary disease) Stroke Lung cancer Paternal Aunt Breast cancer Daughter In good health Family/Other Substance use disorder Mental health disorder Social History Housing: House Alcohol intake: former Patient Tobacco Use Status: Former Tobacco user Tobacco use type: Cigarette e-Cigarette/Vaping Use: Never Used Second Hand Smoke Exposure: No service: Yes Current occupational status: employed 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/hazards: No Cognitive needs: No Hearing needs: No Vision needs: Yes (reading glasses) Female Reproductive History Menstrual Age of Menarche: 13 Physical Exam Vital Signs: Last Vital Signs Temp 99.1 F 02/16/23 17:06 Pulse 66 02/16/23 17:06 BP 104/76 02/16/23 17:06 Pulse Ox 99 02/16/23 17:06 BMI result Body Mass Index 20.9 General: Yes bladder normal to palpation and Yes no CVA tenderness Bimanual exam- vagina & uterus: bladder normal to palpation Back/Spine/Pelvis Back: no CVA tenderness Results AMB Urinalysis, Automated UA Leukoctes 0 Dexter/uL Last Edit by Alin Guzman CMA on 02/16/23 17:12 UA Nitrite Negative Last Edit by Alin Guzman CMA on 02/16/23 17:12 UA Urobilinogen 0.2 mg/dL Last Edit by Alin Guzman CMA on 02/16/23 17:12 UA Protein 0 mg/dL Last Edit by Alin Guzman CMA on 02/16/23 17:12 UA pH 7.5 Last Edit by Alin Gumzan CMA on 02/16/23 17:12 UA Blood 0 Marvin/uL Last Edit by Alin Guzman CMA on 02/16/23 17:12 UA Specific [place] 1.010 Last Edit by Alin Guzman CMA on 02/16/23 17:12 UA Ketone Negative Last Edit by Alin Guzman CMA on 02/16/23 17:12 UA Bilirubin 0 mg/dL Last Edit by Alin Guzman CMA on 02/16/23 17:12 UA Glucose 0 mg/dL Last Edit by Alin Guzman CMA on 02/16/23 17:12 Results Reviewed Results Reviewed: Laboratory Last Values Urine pH (Auto) 7.5 02/16/23 17:11 Specific [place] (Auto) 1.010 02/16/23 17:11 Urine Protein (Auto) 0 mg/dL 02/16/23 17:11 Glucose (UA)(Auto) 0 mg/dL 02/16/23 17:11 Urine Ketones (Auto) Negative 02/16/23 17:11 Urine Blood (Auto) 0 Marvin/uL 02/16/23 17:11 Urine Nitrite (Auto) Negative 02/16/23 17:11 Urine Bilirubin (Auto) 0 mg/dL 02/16/23 17:11 Urine Urobilinogen (Auto) 0.2 mg/dL 02/16/23 17:11 Leukocyte Esterase (Auto) 0 Dexter/uL 02/16/23 17:11 Assessment & Plan Assessment & Plan (1) Leukorrhea: Code(s): N89.8 - Other specified noninflammatory disorders of vagina Plan: Urinalysis was reviewed. No evidence of infection. Empiric treatment with fluconazole for candidiasis. Urine is been tested for bacterial vaginosis. Will call with results of the urinalysis. Orders: Orders Bacterial Vaginosis Panel Today N89.8 - Other specified noninflammatory disorders of vagina AMB Urinalysis Automated Today Z13.9 - Encounter for screening, unspecified Medications: New fluconazole (Diflucan) 150 mg PO Q3D 2 doses 2 tabs 0RF Coding Level of Care Code Est Pt Level 3 (29367) Diagnoses Leukorrhea N89.8
[2023-02-16 17:06] VITALS: BP 104/76; PULSE 66; TEMP 37.3; O2SAT 99; BMI 20.9
== END 2023-02-16 17:19 | disposition home or self-care (01) ==
PROVIDERS: PCP Internal Medicine; Visit Provider Internal Medicine
DX: N89.8 Other specified noninflammatory disorders of vagina (principal)
CPT/HCPCS: 81003; 99213

== ENCOUNTER 2023-02-16 17:20 | Outpatient (REF) | payer OTHER, SELFPAY | END 2023-02-16 17:21 | disposition home or self-care (01) | LOC: HO.LNP 17:20 | PROVIDERS: Visit Provider Internal Medicine | DX: Z13.89 Encounter for screening for other disorder (principal) | CPT/HCPCS: 87480; 87510; 87660 ==

== ENCOUNTER 2023-02-17 14:40 | Outpatient (REF) | payer OTHER, SELFPAY ==
[2023-02-18 12:43] LABS: CT PCR NOT DETECTED (Not Detect.); NG PCR NOT DETECTED (Not Detect.)
[2023-02-18 15:10] LABS: BV Int Neg Control Negative (Negative); BV Int Pos Control Positive (Positive)
== END 2023-02-17 14:41 | disposition home or self-care (01) ==
LOC: HO.LNP 14:40
PROVIDERS: PCP Internal Medicine; Visit Provider Advanced Practice Midwife
DX: N89.8 Other specified noninflammatory disorders of vagina (principal); N94.9 Unspecified condition associated with female genital organs and menstrual cycle
CPT/HCPCS: 0353U; 87480; 87510; 87660; 99212

== ENCOUNTER 2023-02-17 14:40 | Outpatient (AMB) | payer OTHER, SELFPAY ==
[2023-02-17 14:57] VITALS: BP 106/60; BMI 21.3
--- NOTE | 2023-02-17 14:57 | A.OFFVIS_ITS ---
Intake Vital Signs 02/17/23 14:57 Height 5 ft 4 in Weight 124 lb BMI 21.3 BP 106/60 Intake Visit Reasons: discharge Intake Note: The patient agreed to use of a hospital medical biller during this encounter. Scribed for ANNEL Mejía by Juliann Sin hospital medical biller, on 02/17/2023 at 3:15 pm EST. Information Interpreted: non-clinical & clinical Aquaculturist: Aquaculturist Present (Daya) Allergies No Known Allergies [No Known Allergies*] Allergy (Verified 02/17/23 15:03) Is last menstrual period known: No Post menopausal: Yes Patient : No HPI HPI Comments History of Present Illness Details She is here with complaints of excessive vaginal discharge from 02/14/23 but volume has lessen since. [facility], was tested for STD's and was given Diflucan; results pending. Patient reports doctor at last visit at [facility] did not do a pelvic exam and testing was done via urine. Reports she drinks apple cider vinegar with lemon and water, she is wondering if that can change the vaginal discharge. [facility] Medical History Adnexal fullness Back pain Bunion, left COVID-19 Leukopenia Menopausal vaginal dryness Mild major depression, single episode Physical exam Right knee pain Snoring Toe ulcer Unintentional weight loss Vaginal discharge Vertigo Surgical History History of bunionectomy History of inguinal hernia repair History of tonsillectomy History of tubal ligation Family History Father Lung cancer Mother COPD (chronic obstructive pulmonary disease) Stroke Lung cancer Paternal Aunt Breast cancer Daughter In good health Family/Other Substance use disorder Mental health disorder Social History Housing: House Alcohol intake: former Patient Tobacco Use Status: Former Tobacco user Tobacco use type: Cigarette e-Cigarette/Vaping Use: Never Used Second Hand Smoke Exposure: No service: Yes Current occupational status: employed 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/hazards: No Cognitive needs: No Hearing needs: No Vision needs: Yes (reading glasses) Female Reproductive History Menstrual Age of Menarche: 13 Physical Exam Vital Signs: Last Vital Signs BP 106/60 02/17/23 14:57 BMI result Body Mass Index 21.3 Const General: cooperative, healthy appearing, comfortable, no acute distress, well developed, alert and awake Other: mild labial minor erythema General: Yes bladder normal to palpation External Female Exam: normal external appearance and normal appearance of the urethra Speculum Exam - Vagina: normal appearance of the vagina, normal palpation, abnormal vaginal discharge yellow and vagina atrophic Speculum Exam - Cervix: normal appearance of the cervix, normal palpation and Other cervical findings present (clear mucus) Bimanual exam- vagina & uterus: normal bimanual exam, normal palpation, bladder normal to palpation and normal palpation Bimanual Exam- Adnexa, other: Other (right adnexa slightly full) Assessment & Plan Assessment & Plan (1) Vaginal discharge: Code(s): N89.8 - Other specified noninflammatory disorders of vagina Plan: Discussed: BV testing and GC/CT panel done today. Await results and treat accordingly. Hydrate well with water. All of her questions and concerns were addressed to the best of my ability and shared decision making. She is agreeable to plan of care. (2) Adnexal fullness: Comment: Pelvic US ordered, follow up pending results Code(s): N94.9 - Unspecified condition associated with female genital organs and menstrual cycle Plan: Pelvic US ordered. Follow up in person for results; results pending. Orders: Orders CT NG by PCR Today N89.8 - Other specified noninflammatory disorders of vagina, N94.9 - Unspecified condition associated with female genital organs and menstrual cycle US pelvic and transvaginal Today N94.9 - Unspecified condition associated with female genital organs and menstrual cycle Coding Level of Care Code Est Pt Level 3 (04757) Diagnoses Vaginal discharge N89.8 Adnexal fullness N94.9
== END 2023-02-17 15:48 | disposition home or self-care (01) ==
LOC: HO.HWS 14:40
PROVIDERS: PCP Internal Medicine; Visit Provider Advanced Practice Midwife
DX: N89.8 Other specified noninflammatory disorders of vagina (principal); N94.9 Unspecified condition associated with female genital organs and menstrual cycle
CPT/HCPCS: 99213

== ENCOUNTER 2023-02-19 15:25 | Outpatient (REF) | payer OTHER, SELFPAY ==
--- NOTE | ~2023-02-19 | US_ITS ---
EXAMINATION: US PELVIS CLINICAL INFORMATION: Unspecified condition associated with female genital organs COMPARISON: Previous pelvic ultrasound from [address] of the abdomen and pelvis from 2015 TECHNIQUE: Ultrasound of the pelvis is performed using both transabdominal and transvaginal transducers along with Doppler. Transvaginal imaging is performed due to inadequate visualization transabdominally. FINDINGS: The uterus is anteverted and measures 7 x 1.8 x 2.9 cm in dimension. There is a small amount of fluid seen in the endometrial cavity. The endometrium does not appear thickened measuring 0.3 cm. No focal uterine lesion. The cervix is unremarkable. The ovaries are normal-appearing. The right ovary measures 2.4 x 1.1 x 1.1 cm. The left ovary measures 1.4 x 0.9 x 0.7 cm. There is no fluid in the pelvis. There are prominent pelvic vessels adjacent to the left ovary questionable for pelvic congestion. US/US pelvic and transvaginal IMPRESSION: Normal-appearing uterus and ovaries. Prominent vessels in the left pelvis questionable for pelvic congestion.
[2023-02-19 16:04] LABS: MANUAL DIFF FLAG NO
[2023-02-19 16:56] LABS: Basophils Absolute Auto 0.1 X10*3/uL (0.0-0.2); Basophils Percent Auto 0.7 % (0-2); Eosinophils Absolute Auto 0.2 X10*3/uL (0.0-0.4); Eosinophils Percent Auto 1.9 % (0-4); Hematocrit 38.6 % (37.0-47.0); Hemoglobin 12.8 g/dl (12.0-16.0); Imm Gran Abs Auto 0.03 X10*3/uL (0.00-0.03); Imm Gran Pct Auto 0.3 % (0.0-0.4); Lymphocytes Absolute Auto 2.2 X10*3/uL (1.2-4.9); Mean Corpuscular HGB Conc 33.2 g/dl (31.0-35.0); Mean Corpuscular Hemoglobin 29.5 pg (27.0-33.0); Mean Corpuscular Volume 88.9 fL (80.0-98.0); Mean Platelet Volume 9.7 fL (9.4-12.3); Monocytes Absolute Auto 0.8 X10*3/uL (0.1-1.2); Monocytes Percent Auto 7.9 % (2-11); Neutrophils Absolute Auto 6.8 x10*3/uL (2.0-8.3); Neutrophils Percent Auto 67.2 % (45-73); Platelet Count 290 X10*3/uL (160-400); Red Blood Count 4.34 X10*6/uL (4.20-5.50); Red Cell Distribution Width 12.3 % (11.0-16.0); White Blood Count 10.1 X10*3/uL (4.8-10.8)
[2023-02-19 17:18] LABS: Calcium 9.3 mg/dL (8.4-10.2)
== END 2023-02-19 15:26 | disposition home or self-care (01) ==
LOC: HO.US 15:25
PROVIDERS: PCP Internal Medicine; Visit Provider Advanced Practice Midwife
DX: N94.9 Unspecified condition associated with female genital organs and menstrual cycle (principal); D64.9 Anemia, unspecified; M81.0 Age-related osteoporosis without current pathological fracture
CPT/HCPCS: 36415; 76830; 76856; 82040; 82310; 85025

== ENCOUNTER 2023-02-21 08:16 | Emergency (ER) | payer OTHER, SELFPAY ==
--- NOTE | ~2023-02-21 | CT_ITS ---
EXAMINATION: CT ABDOMEN AND PELVIS WITH CONTRAST CLINICAL INFORMATION: Pelvic pain. COMPARISON: CT abdomen and pelvis without contrast 09/11/2014. TECHNIQUE: Multidetector volumetric images were obtained from the superior aspect of the liver through the pubic symphysis following administration 85 mL of Omnipaque 350 intravenous contrast. Sagittal and coronal reformatted images were obtained on the technologist's workstation. Oral contrast: No This CT examination was performed using dose optimization techniques as appropriate, variously including the following: *Automated exposure control *Adjustment of mA and/or kV according to patient size (this includes techniques or standardized protocols for targeted exams where dose is matched to indication/reason for exam; i.e. extremities or head) *Use of iterative reconstruction technique DLP: 438 mGy-cm FINDINGS: LUNG BASES: There is bibasilar atelectasis and/or scarring LIVER, GALLBLADDER, AND BILIARY TREE: The liver is normal in size, shape, and attenuation. No focal hepatic lesion or biliary ductal dilatation is present. The gallbladder is unremarkable with no evidence of radiopaque gallstones, gallbladder wall thickening, or obvious pericholecystic inflammatory changes. PANCREAS: Unremarkable. SPLEEN: Unremarkable. ADRENAL GLANDS: Unremarkable. KIDNEYS AND URETERS: The kidneys are normal in size, shape, and attenuation. There are 2 3. Nonobstructive calculi lower pole left kidney and mid pole right kidney. There is no hydronephrosis. BLADDER: Unremarkable. GASTROINTESTINAL TRACT: There is moderate to significant stool and gas seen in the colon without significant distention. The small bowel loops are normal caliber. Cecum lies in the right lower pelvis. Appendix is not visualized. ABDOMINAL WALL: No significant hernia is appreciated. LYMPH NODES: Normal. VASCULAR: Unremarkable. PELVIC VISCERA: The uterus is anteverted and appears unremarkable. No adnexal mass or free fluid seen. OSSEOUS STRUCTURES: Mild degenerative disc changes L3-L4 disc level is noted. Rest of the visualized lumbar spine and the pelvic bones are unremarkable. CT/CT abdomen pelvis w IV con IMPRESSION: Nonobstructive bilateral radiopaque renal calculi. No hydronephrosis. Moderate to significant constipation without obstruction Fleischner guidelines were followed.
[2023-02-21 08:18] VITALS: BP 130/71; PULSE 83; RESP 16; TEMP 36.9; O2SAT 97; BMI 21.1
[2023-02-21 08:39] LABS: MANUAL DIFF FLAG NO
[2023-02-21 08:42] LABS: Basophils Absolute Auto 0.1 X10*3/uL (0.0-0.2); Basophils Percent Auto 0.6 % (0-2); Eosinophils Absolute Auto 0.3 X10*3/uL (0.0-0.4); Eosinophils Percent Auto 3.2 % (0-4); Hematocrit 41.8 % (37.0-47.0); Hemoglobin 13.7 g/dl (12.0-16.0); Imm Gran Abs Auto 0.02 X10*3/uL (0.00-0.03); Imm Gran Pct Auto 0.2 % (0.0-0.4); Lymphocytes Absolute Auto 1.6 X10*3/uL (1.2-4.9); Lymphocytes Percent Auto 19.1 % (20-40); Mean Corpuscular HGB Conc 32.8 g/dl (31.0-35.0); Mean Corpuscular Hemoglobin 29.1 pg (27.0-33.0); Mean Corpuscular Volume 88.9 fL (80.0-98.0); Mean Platelet Volume 8.9 fL (9.4-12.3); Monocytes Absolute Auto 0.6 X10*3/uL (0.1-1.2); Monocytes Percent Auto 7.4 % (2-11); Neutrophils Absolute Auto 5.7 x10*3/uL (2.0-8.3); Neutrophils Percent Auto 69.5 % (45-73); Platelet Count 298 X10*3/uL (160-400); Red Cell Distribution Width 12.2 % (11.0-16.0); White Blood Count 8.2 X10*3/uL (4.8-10.8)
[2023-02-21 08:43] LABS: Appearance Urine Clear; Color Urine Yellow; Glucose Urine UA Negative (Negative); Leukocyte Esterase Urine Moderate (2+) (Negative); Nitrite Urine Negative (Negative); Specific Gravity - Urine <= 1.005 (1.005-1.025); UMIC TRIGGER UACC YES; Urine Blood Negative (Negative); Urine Ketones Negative (Negative); Urine Protein Negative (Neg-Trace)
[2023-02-21 08:46] LABS: Bacteria Urine None Seen (None Seen); Hyaline Casts Urine 0-2 /LPF (0-2); RBC Urine 0-2 /HPF (0-2); Squamous Epithelial Cell Urine 0-2 /HPF (0-2); UACC Culture Trigger YES
--- NOTE | 2023-02-21 08:50 | ED_ITS ---
HPI - General Adult General Chief complaint: Abdominal Pain Stated complaint: pelvic pain Time Seen by Provider: 02/21/23 08:31 Source: patient and RN notes reviewed Mode of arrival: ambulatory Limitations: no limitations History of Present Illness HPI narrative: This is a 57-year-old female presenting to the emergency department for evaluation of vaginal fullness and vaginal discharge x1 week. Patient reports t hat on Thursday of last week she noticed excessive vaginal discharge and feeling vaginal fullness, describing it as if she had a baby. Patient was seen and on urgent care where she had her urine tested and was treated with 1 dose of Diflucan, she states that vaginal discharge still remained however seem to be slightly manager building. She was then seen by her OBGYN, where she had a pelvic exam where she had testing for BV/trich/yeast, GC/Chlamydia testing which was all negative. She then had a pelvic and transvaginal ultrasound which revealed a normal appearing uterus and ovaries however with prominent vessels in the left pelvis questionable for pelvic congestion. Patient states that she has been unable to work as her pain and pressure-like symptoms have been severe. Reporting low-grade fevers of 99.1, denies chest pain, shortness breast, diarrhea, nausea vomiting. She is sexually active with her . Otherwise no other concerns. MD complaint: Vaginal discharge, fullness Onset (ago): week(s) Radiation: non-radiation Severity: mild Quality: aching Pain Consistency: constant Relieving factors: none Exacerbating factors: none Associated symptoms: denies other symptoms Treatments prior to arrival: none Related Data Previous Rx's Medication Instructions Recorded meclizine 25 mg tablet 25 mg PO TID PRN dizziness 30 days 12/24/21 #90 tabs tramadol 50 mg tablet 50 mg PO Q12H PRN pain 30 days #60 12/24/21 tabs alendronate 70 mg tablet 70 mg PO QWEEK 30 days #5 tabs 10/27/22 tizanidine 4 mg tablet 4 mg PO BEDTIME PRN muscle 02/07/23 spasticity 30 days #30 tabs fluconazole 150 mg tablet 150 mg PO Q3D 2 doses #2 tabs 02/16/23 (Diflucan) docusate calcium 240 mg capsule 240 mg PO DAILY #30 caps 02/21/23 doxycycline hyclate 100 mg capsule 100 mg PO BID 7 days #14 caps 02/21/23 metronidazole 500 mg tablet 500 mg PO BID 7 days #14 tabs 02/21/23 polyethylene glycol 3350 17 17 g PO DAILY #119 grams 02/21/23 gram/dose oral powder (Miralax) Allergies Allergy/AdvReac Type Severity Reaction Status Date / Time No Known Allergies Allergy Verified 02/24/23 08:01 [No Known Allergies*] Review of Systems Review of Systems: Yes all other systems are reviewed and are negative Constitutional: Constitutional: Reports as per [facility] Past Medical History Medical History (Updated 02/24/23 @ 08:08 by Juliann Sin) Adnexal fullness Back pain Bunion, left COVID-19 Leukopenia Menopausal vaginal dryness Mild major depression, single episode Pelvic pain Physical exam Right knee pain Snoring Toe ulcer Unintentional weight loss Vaginal discharge Vertigo Surgical History History of bunionectomy History of inguinal hernia repair History of tonsillectomy History of tubal ligation Family History Family History Father Lung cancer Mother COPD (chronic obstructive pulmonary disease) Stroke Lung cancer Paternal Aunt Breast cancer Daughter In good health Family/Other Substance use disorder Mental health disorder Social History Social History Housing: House Alcohol intake: former Patient Tobacco Use Status: Former Tobacco user Tobacco use type: Cigarette e-Cigarette/Vaping Use: Never Used Second Hand Smoke Exposure: No service: Yes Current occupational status: employed 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/hazards: No Cognitive needs: No Hearing needs: No Vision needs: Yes (reading glasses) Physical Exam ED Vital Signs: Vital Signs - 24 hr 02/21/23 08:18 02/21/23 10:09 Temperature 98.4 F Pulse Rate 83 68 Respiratory Rate 16 18 Blood Pressure 130/71 117/56 L Pulse Oximetry 97 96 Oxygen Delivery Method Room Air Room Air BMI result Body Mass Index 21.1 Const General: cooperative, comfortable and no acute distress Orientation/consciousness: patient oriented x3 Limitations: no limitations HENMT Head: Yes normal to inspection, Yes normocephalic and Yes atraumatic Ears: hearing grossly normal bilaterally General nose exam: Normal external nose present Face and sinus: Yes normal facial exam Mouth: Normal oral and palatal mucosa present, oropharynx normal and moist mucous membranes Throat: Yes posterior oropharynx normal Eyes General: appearance normal, both eyes and all related structures Eyelids: Yes eyelids normal Conjunctivae: conjunctivae normal Sclerae: sclerae normal Pupils: Equal, round and reactive pupils present EOM: EOMs intact bilaterally Neck Neck: Yes normal visual inspection, Yes full ROM and Yes no lymphadenopathy Lymphatic: no lymphadenopathy noted Chest Chest palpation & inspection: normal inspection of the chest Resp Effort & Inspection: normal respiratory effort and able to speak in complete sentences Auscultation: clear to auscultation bilaterally, no crackles, no rales, no rhonchi and no wheezes Cardio Rate: regular rate Rhythm: regular rhythm Heart sounds: S1 normal heart sound present and S2 normal heart sound present GI Other: Abdomen is soft, with mild tenderness in the suprapubic region. Inspection: Yes normal to inspection Other: Pelvic examination revealing normal external genitalia with yellow/white dischar ge noted from the vaginal vault. Performed bimanual examination where pt had significant discomfort, +cervical motion tenderness. No adenexal tednerness Skin General skin exam: no rashes or lesions noted Trauma: no lacerations or abrasions Wounds: no wounds Neuro General: patient oriented x3 and moves all extremities Cranial nerves: Yes Equal, round and reactive pupils present Extrem General: Yes normal to inspection Right upper extremity: normal to inspection Left upper extremity: normal to inspection Right lower extremity: normal to inspection Left lower extremity: normal to inspection Course Reevaluation(s) Reevaluation #1: Discussed case with Dr. Hamm. Given patient has had multiple swabs collected for BT, trich, yeast, gc/chlamydia, as well as pelvic ultrasound. Patient declines retesting for GC/Chlamydia, BV/Trich/yeast. Discussed with patient as well as Dr. Gauthier, will obtain CT abdomen with contrast. Time: 09:17 Reevaluation #2: CT abdomen with contrast revealing severe constipation, no pelvic inflammatory process seen on imaging. Urine with moderate leuk esterases, wbc's, will await urine culture. Bacterial vaginosis panel negative. Clinically patient has concerning signs for pelvic inflammatory disease, will treat with Flagyl, doxy and ceftriaxone. Discussed with patient who agrees with this treatment plan. Urged the importance of following up with her OBGYN. Patient understands and agrees with plan. Patient stable for discharge. Time: 13:05 Medications Administered Discontinued Medications Generic Name Dose Route Start Last Admin Trade Name Jorge PRN Reason Stop Dose Admin Ceftriaxone Sodium 500 mg/ 0 mg 02/21/23 13:02 02/21/23 13:15 Lidocaine HCl 1 ml IM 02/21/23 13:03 1 kit ONCE ONE Administration Iohexol 85 ml 02/21/23 10:58 02/21/23 10:58 Iohexol 350 Mg/Ml 100 Ml Infus..Btl IV 02/21/23 10:59 85 ml ONCE ONE Administration Medical Decision Making Medical Decision Making [facility] Narrative: 57-year-old female presenting to the emergency department for evaluation of pelvic pain and yellow-green discharge x1 week. She has been seen by urgent care as well as her OBGYN. She has had gonorrhea, chlamydia, BV, trich, yeast testing performed. She also had a pelvic and transvaginal ultrasound revealing prominent vessels in the left pelvis questionable for pelvic congestion, otherwise had a normal appearing uterus. On arrival, vital signs within normal limits. Patient is nontoxic appearing, abdomen is soft, nontender, nondistende d. DDX including pelvic inflammatory disease vs UTI vs STI. Less likely ovarian torsion, ectopic . Pelvic examination revealing signs concerning for PID. I discussed case with attending Dr. Hamm who agrees with plan. Given patient's concern with negative work up through OBGYN, discussed obtaining CT abdomen pelvis to r/o abscess. Differential Diagnosis Differential Diagnoses: The differential diagnosis associated with the p resentation includes ovarian abscess, ectopic , PID, BV, yeast Admission/Observation Consideration of admission/observation: Escalation of care including admission/observation considered Patient would have been admitted to the hospital had her work up had any findings where hospital admission was appropriate and her clinical presentation warranted hospital admission. Lab Data [facility] Lab Attestation statement: I reviewed the patient's lab results. 02/21/23 08:33 02/21/23 08:33 Labs: Lab Results 02/21/23 02/21/23 02/21/23 Range/Units 08:33 08:33 08:33 WBC 8.2 (4.8-10.8) X10*3/uL RBC 4.70 (4.20-5.50) X10*6/uL Hgb 13.7 (12.0-16.0) g/dl Hct 41.8 (37.0-47.0) % MCV 88.9 (80.0-98.0) fL MCH 29.1 (27.0-33.0) pg MCHC 32.8 (31.0-35.0) g/dl RDW 12.2 (11.0-16.0) % Plt Count 298 (160-400) X10*3/uL MPV 8.9 L (9.4-12.3) fL Immature Gran % (Auto) 0.2 (0.0-0.4) % Neut % (Auto) 69.5 (45-73) % Lymph % (Auto) 19.1 L (20-40) % [place] % (Auto) 7.4 (2-11) % Eos % (Auto) 3.2 (0-4) % Baso % (Auto) 0.6 (0-2) % Lymph # (Auto) 1.6 (1.2-4.9) X10*3/uL [place] # (Auto) 0.6 (0.1-1.2) X10*3/uL Eos # (Auto) 0.3 (0.0-0.4) X10*3/uL Baso # (Auto) 0.1 (0.0-0.2) X10*3/uL Abs Immat Gran (auto) 0.02 (0.00-0.03) X10*3/uL Absolute Neuts (auto) 5.7 (2.0-8.3) x10*3/uL Absolute Nucleated RBC 0.000 (0.0-0.012) X10*3/uL Nucleated RBC % (auto) 0.0 (0.0-0.2) /100WBC Sodium 140 (135-145) mmol/L Potassium 4.3 (3.3-5.1) mmol/L Chloride 107 (96-108) mmol/L Carbon Dioxide 26 (22-29) mmol/L Anion Gap 11 L (12-20) BUN 12 (9-16) mg/dL Creatinine 0.66 (0.5-1.4) mg/dL Estim Creat Clear Calc 81.2 Estimated GFR > 60 Random Glucose 84 (60-115) mg/dL Calcium 9.7 (8.4-10.2) mg/dL Total Bilirubin 0.3 (0.0-1.0) mg/dL Direct Bilirubin 0.2 (0.0-0.5) mg/dL AST 13 (5-31) U/L ALT 12 (0-31) U/L Alkaline Phosphatase 72 (39-117) U/L Total Protein 7.0 (6.5-8.0) g/dL Albumin 4.2 (3.5-5.0) g/dL Lipase 11 (8-78) U/L Beta HCG, Quant 5 mIU/mL Urine Color Yellow Urine Appearance Clear Urine pH 6.0 (5.0-9.0) Ur Specific Tamms <= 1.005 (1.005-1.025) Urine Protein Negative (Neg-Trace) mg/dL Urine Glucose (UA) Negative (Negative) mg/dL Urine Ketones Negative (Negative) mg/dL Urine Blood Negative (Negative) Urine Nitrite Negative (Negative) Ur Leukocyte Esterase Moderate (2+) H (Negative) Urine RBC 0-2 (0-2) /HPF Urine WBC 11-20 H (0-5) /HPF Ur Squamous Epith Cells 0-2 (0-2) /HPF Urine Bacteria None Seen (None Seen) Hyaline Casts 0-2 (0-2) /LPF Nadya species DNA (Negative) Gardnerella DNA Probe (Negative) Trichomonas DNA Probe (Negative) 02/21/23 Range/Units 09:50 WBC (4.8-10.8) X10*3/uL RBC (4.20-5.50) X10*6/uL Hgb (12.0-16.0) g/dl Hct (37.0-47.0) % MCV (80.0-98.0) fL MCH (27.0-33.0) pg MCHC (31.0-35.0) g/dl RDW (11.0-16.0) % Plt Count (160-400) X10*3/uL MPV (9.4-12.3) fL Immature Gran % (Auto) (0.0-0.4) % Neut % (Auto) (45-73) % Lymph % (Auto) (20-40) % [place] % (Auto) (2-11) % Eos % (Auto) (0-4) % Baso % (Auto) (0-2) % Lymph # (Auto) (1.2-4.9) X10*3/uL [place] # (Auto) (0.1-1.2) X10*3/uL Eos # (Auto) (0.0-0.4) X10*3/uL Baso # (Auto) (0.0-0.2) X10*3/uL Abs Immat Gran (auto) (0.00-0.03) X10*3/uL Absolute Neuts (auto) (2.0-8.3) x10*3/uL Absolute Nucleated RBC (0.0-0.012) X10*3/uL Nucleated RBC % (auto) (0.0-0.2) /100WBC Sodium (135-145) mmol/L Potassium (3.3-5.1) mmol/L Chloride (96-108) mmol/L Carbon Dioxide (22-29) mmol/L Anion Gap (12-20) BUN (9-16) mg/dL Creatinine (0.5-1.4) mg/dL Estim Creat Clear Calc Estimated GFR Random Glucose (60-115) mg/dL Calcium (8.4-10.2) mg/dL Total Bilirubin (0.0-1.0) mg/dL Direct Bilirubin (0.0-0.5) mg/dL AST (5-31) U/L ALT (0-31) U/L Alkaline Phosphatase (39-117) U/L Total Protein (6.5-8.0) g/dL Albumin (3.5-5.0) g/dL Lipase (8-78) U/L Beta HCG, Quant mIU/mL Urine Color Urine Appearance Urine pH (5.0-9.0) Ur Specific Tamms (1.005-1.025) Urine Protein (Neg-Trace) mg/dL Urine Glucose (UA) (Negative) mg/dL Urine Ketones (Negative) mg/dL Urine Blood (Negative) Urine Nitrite (Negative) Ur Leukocyte Esterase (Negative) Urine RBC (0-2) /HPF Urine WBC (0-5) /HPF Ur Squamous Epith Cells (0-2) /HPF Urine Bacteria (None Seen) Hyaline Casts (0-2) /LPF Nadya species DNA Negative (Negative) Gardnerella DNA Probe Negative (Negative) Trichomonas DNA Probe Negative (Negative) Radiology Impression Discussion of test interpretation with radiology: I have reviewed the radiologist's reading. Radiologist Impression: EXAMINATION: CT ABDOMEN AND PELVIS WITH CONTRAST? CLINICAL INFORMATION: Pelvic pain.? COMPARISON: CT abdomen and pelvis without contrast 09/11/2014. TECHNIQUE: Multidetector volumetric images were obtained from the superior aspect of the liver through the pubic symphysis following administration 85 mL of Omnipaque 350 intravenous contrast. Sagittal and coronal reformatted images were obtained on the technologist's workstation.? Oral contrast: No This CT examination was performed using dose optimization techniques as appropriate, variously including the following: *Automated exposure control *Adjustment of mA and/or kV according to patient size (this includes techniques or standardized protocols for targeted exams where dose is matched to indication/reason for exam; i.e. extremities or head) *Use of iterative reconstruction technique DLP: 438 mGy-cm FINDINGS: LUNG BASES: There is bibasilar atelectasis and/or scarring? LIVER, GALLBLADDER, AND BILIARY TREE: The liver is normal in size, shape, and attenuation. No focal hepatic lesion or biliary ductal dilatation is present. The gallbladder is unremarkable with no evidence of radiopaque gallstones, gallbladder wall thickening, or obvious pericholecystic inflammatory changes.? PANCREAS: Unremarkable.? SPLEEN: Unremarkable.? ADRENAL GLANDS: Unremarkable.? KIDNEYS AND URETERS: The kidneys are normal in size, shape, and attenuation. There are 2 3. Nonobstructive calculi lower pole left kidney and mid pole right kidney. There is no hydronephrosis.? BLADDER: Unremarkable.? GASTROINTESTINAL TRACT: There is moderate to significant stool and gas seen in the colon without significant distention. The small bowel loops are normal caliber. Cecum lies in the right lower pelvis. Appendix is not visualized.? ABDOMINAL WALL: No significant hernia is appreciated.? LYMPH NODES: Normal. VASCULAR: Unremarkable. PELVIC VISCERA: The uterus is anteverted and appears unremarkable. No adnexal mass or free fluid seen.? OSSEOUS STRUCTURES: Mild degenerative disc changes L3-L4 disc level is noted. Rest of the visualized lumbar spine and the pelvic bones are unremarkable.? CT/CT abdomen pelvis w IV con IMPRESSION: Nonobstructive bilateral radiopaque renal calculi. No hydronephrosis. ? Moderate to significant constipation without obstruction ? Fleischner guidelines were followed. Dictated By: Alfonso Michaud MD External Record Review External record reviewed: Outpatient record and Prior outpatient radiology review of records from OBGYN and urgent care visits. Prescription Management I considered prescription management with: Antibiotic Discharge Plan Discharge Clinical Impression: Acute pelvic inflammatory disease, Constipation Patient Disposition: Home, Self-Care Instructions: Pelvic Inflammatory Disease (ED), Constipation (ED), High Fiber Diet (ED) Additional Instructions: Clinically I am concerned for pelvic inflammatory disease. You tested negative for bacterial vaginosis, yeast, and trichomonas today. Your labs were reassuring. We are treating you with multiple antibiotics. You received her 1st dose of Rocephin 500 mg IM. Please take prescribed medication at home as directed. Finish the entire course even if you are feeling better. Your CT scan reveals severe constipation. Increase diet and hydration. Exercise can also help with the symptoms. Take prescribed medication as dire cted. If any new or worsening symptoms occur including but not limited to, worsening abdominal pain, nausea, vomiting, diarrhea, please return for re-evaluation. Follow-up with your OBGYN, call on Thursday to make an appointment. Prescriptions: New doxycycline hyclate 100 mg capsule 100 mg PO BID 7 Days Qty: 14 0RF metronidazole 500 mg tablet 500 mg PO BID 7 Days Qty: 14 0RF docusate calcium 240 mg capsule 240 mg PO DAILY Qty: 30 0RF polyethylene glycol 3350 [Miralax] 17 gram/dose powder 17 g PO DAILY Qty: 119 0RF No Action tramadol 50 mg tablet 50 mg PO Q12H PRN (Reason: pain) 30 Days Qty: 60 0RF meclizine 25 mg tablet 25 mg PO TID PRN (Reason: dizziness) 30 Days Qty: 90 0RF alendronate 70 mg tablet 70 mg PO QWEEK 30 Days Qty: 5 4RF tizanidine 4 mg tablet 4 mg PO BEDTIME PRN (Reason: muscle spasticity) 30 Days Qty: 30 0RF fluconazole [Diflucan] 150 mg tablet 150 mg PO Q3D 0 Days Qty: 2 0RF Interventions: ED Discharge Assessment Last Done: 02/21/23 13:20 Discharge Date/Time: 02/21/23 13:21
[2023-02-21 08:56] LABS: Alanine Aminotransferase 12 U/L (0-31); Albumin Level 4.2 g/dL (3.5-5.0); Alkaline Phosphatase 72 U/L (39-117); Anion Gap 11 (12-20); Aspartate Amino Transferase 13 U/L (5-31); Bilirubin Direct 0.2 mg/dL (0.0-0.5); Bilirubin Total 0.3 mg/dL (0.0-1.0); Blood Urea Nitrogen 12 mg/dL (9-16); Calcium 9.7 mg/dL (8.4-10.2); Carbon Dioxide 26 mmol/L (22-29); Chloride 107 mmol/L (96-108); Creatinine Clr Calc Pharmacy 81.2; Estimated Glomerular Filt Rate > 60; Glucose Random 84 mg/dL (60-115); Lipase 11 U/L (8-78); Potassium 4.3 mmol/L (3.3-5.1); Sodium 140 mmol/L (135-145)
[2023-02-21 10:09] VITALS: BP 117/56; PULSE 68; RESP 18; O2SAT 96
[2023-02-21] MEDS: iohexoL 350 MG/ML 100 ML INFUS..BTL 85 ML IV (10:58)
[2023-02-21 11:49] LABS: BV Int Neg Control Negative (Negative); BV Int Pos Control Positive (Positive)
[2023-02-21 12:06] LABS: HCG Quantitative 5 mIU/mL
[2023-02-21 13:11] VITALS: BP 131/65; PULSE 78; RESP 18; TEMP 37.3; O2SAT 98
[2023-02-21] MEDS: cefTRIAXone sodium 500 MG, Lidocaine HCl 1 % MPF 1 ML IM (13:15)
== END 2023-02-21 13:21 | disposition home or self-care (01) ==
PROVIDERS: Physician Assistant Medical; Emergency Provider Emergency Medicine; PCP Internal Medicine
DX: N73.0 Acute parametritis and pelvic cellulitis (principal); K59.00 Constipation, unspecified; R50.9 Fever, unspecified
CPT/HCPCS: 36415; 74177; 80048; 80076; 81001; 83690; 84702; 85025; 87086; 87147; 87480; 87510; 87660; 96372; 99284; J0696; Q9967

== ENCOUNTER 2023-02-24 07:51 | Outpatient (AMB) | payer OTHER, SELFPAY ==
[2023-02-24 07:55] VITALS: BP 114/76; BMI 21.1
--- NOTE | 2023-02-24 07:55 | MHC.OFFVIS ---
Intake Vital Signs 02/24/23 07:55 Height 5 ft 4 in Weight 123 lb BMI 21.1 BP 114/76 Intake Visit Reasons: US follow up Intake Note: The patient agreed to use of a medical chief technician during this encounter. Scribed for ANNEL Mejía by Juliann Sin, medical chief technician, on 02/24/2023 at 8:01 am EST. Grain Wafer Machine Operator: Grain Wafer Machine Operator Present (Daya) Allergies No Known Allergies [No Known Allergies*] Allergy (Verified 02/24/23 08:01) HPI HPI Comments History of Present Illness Details She is here to discuss CT scan results regarding pelvic pain and adnexal fullness. Seen in ED this weekend and had the CT scan complete. She reports the recent US transvaginal probe to be extremely painful. She is feeling better than last visit and there is less vaginal discharge, currently on antibiotics she feels are helping. Reports h/o constipation, she reports some meds may contribute to this, working of diet-fiber and fluids along with Miralax.Also not exercising as much lately. [facility] Medical History (Updated 02/24/23 @ 08:08 by Juliann Sin) Adnexal fullness Back pain Bunion, left COVID-19 Leukopenia Menopausal vaginal dryness Mild major depression, single episode Pelvic pain Physical exam Right knee pain Snoring Toe ulcer Unintentional weight loss Vaginal discharge Vertigo Surgical History History of bunionectomy History of inguinal hernia repair History of tonsillectomy History of tubal ligation Family History Father Lung cancer Mother COPD (chronic obstructive pulmonary disease) Stroke Lung cancer Paternal Aunt Breast cancer Daughter In good health Family/Other Substance use disorder Mental health disorder Social History Housing: House Alcohol intake: former Patient Tobacco Use Status: Former Tobacco user Tobacco use type: Cigarette e-Cigarette/Vaping Use: Never Used Second Hand Smoke Exposure: No service: Yes Current occupational status: employed 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/hazards: No Cognitive needs: No Hearing needs: No Vision needs: Yes (reading glasses) Female Reproductive History Menstrual Age of Menarche: 13 Physical Exam Vital Signs: Last Vital Signs BP 114/76 02/24/23 07:55 BMI result Body Mass Index 21.1 Const General: cooperative, healthy appearing, comfortable, no acute distress, well developed, alert and awake Other: General: Yes bladder normal to palpation External Female Exam: normal external appearance and normal appearance of the urethra Speculum Exam - Vagina: normal appearance of the vagina, normal palpation and vagina atrophic (vaginal patchy erythema-most likely from the recent vaginal probe exam) Speculum Exam - Cervix: normal appearance of the cervix and normal palpation Bimanual exam- vagina & uterus: normal bimanual exam, normal palpation, bladder normal to palpation and normal palpation Bimanual Exam- Adnexa, other: normal adnexae and no masses Results Reviewed Results Reviewed: EXAMINATION: CT ABDOMEN AND PELVIS WITH CONTRAST? CLINICAL INFORMATION: Pelvic pain.? COMPARISON: CT abdomen and pelvis without contrast 09/11/2014. TECHNIQUE: Multidetector volumetric images were obtained from the superior aspect of the liver through the pubic symphysis following administration 85 mL of Omnipaque 350 intravenous contrast. Sagittal and coronal reformatted images were obtained on the technologist's workstation.? Oral contrast: No This CT examination was performed using dose optimization techniques as appropriate, variously including the following: *Automated exposure control *Adjustment of mA and/or kV according to patient size (this includes techniques or standardized protocols for targeted exams where dose is matched to indication/reason for exam; i.e. extremities or head) *Use of iterative reconstruction technique DLP: 438 mGy-cm FINDINGS: LUNG BASES: There is bibasilar atelectasis and/or scarring? LIVER, GALLBLADDER, AND BILIARY TREE: The liver is normal in size, shape, and attenuation. No focal hepatic lesion or biliary ductal dilatation is present. The gallbladder is unremarkable with no evidence of radiopaque gallstones, gallbladder wall thickening, or obvious pericholecystic inflammatory changes.? PANCREAS: Unremarkable.? SPLEEN: Unremarkable.? ADRENAL GLANDS: Unremarkable.? KIDNEYS AND URETERS: The kidneys are normal in size, shape, and attenuation. There are 2 3. Nonobstructive calculi lower pole left kidney and mid pole right kidney. There is no hydronephrosis.? BLADDER: Unremarkable.? GASTROINTESTINAL TRACT: There is moderate to significant stool and gas seen in the colon without significant distention. The small bowel loops are normal caliber. Cecum lies in the right lower pelvis. Appendix is not visualized.? ABDOMINAL WALL: No significant hernia is appreciated.? LYMPH NODES: Normal. VASCULAR: Unremarkable. PELVIC VISCERA: The uterus is anteverted and appears unremarkable. No adnexal mass or free fluid seen.? OSSEOUS STRUCTURES: Mild degenerative disc changes L3-L4 disc level is noted. Rest of the visualized lumbar spine and the pelvic bones are unremarkable.? CT/CT abdomen pelvis w IV con IMPRESSION: Nonobstructive bilateral radiopaque renal calculi. No hydronephrosis. ? Moderate to significant constipation without obstruction ? Fleischner guidelines were followed. Assessment & Plan Assessment & Plan (1) Encounter to discuss test results: Code(s): Z71.2 - Person consulting for explanation of examination or test findings Plan: Discussed: US findings of: Nonobstructive bilateral radiopaque renal calculi. No hydronephrosis. Moderate to significant constipation without obstruction. Maintaining a healthy lifestyle including a well balanced diet with fiber, hydrate well with fluids and routine exercise. All of her questions and concerns were addressed to the best of my ability and shared decision making. She is agreeable to plan of care. Excuse note for work provided per pt. request. Follow up prn/AG. (2) Adnexal fullness: Comment: Pelvic US ordered, follow up pending results Code(s): N94.9 - Unspecified condition associated with female genital organs and menstrual cycle Plan: No sexual intimacy for now until healed. (3) Pelvic pain: Code(s): R10.2 - Pelvic and perineal pain (4) Constipation: Code(s): K59.00 - Constipation, unspecified Coding Level of Care Code Est Pt Level 3 (41453) Diagnoses Encounter to discuss test results Z71.2 Adnexal fullness N94.9 Pelvic pain R10.2 Constipation K59.00
== END 2023-02-24 11:52 | disposition home or self-care (01) ==
LOC: HO.HWS 07:51
PROVIDERS: PCP Internal Medicine; Visit Provider Advanced Practice Midwife
DX: Z71.2 Person consulting for explanation of examination or test findings (principal); N94.9 Unspecified condition associated with female genital organs and menstrual cycle; R10.2 Pelvic and perineal pain; K59.00 Constipation, unspecified
CPT/HCPCS: 99213

== ENCOUNTER → 2023-02-24 07:51 | Outpatient (BNVA) | payer OTHER, SELFPAY | PROVIDERS: PCP Internal Medicine; Visit Provider Advanced Practice Midwife | DX: Z71.2 Person consulting for explanation of examination or test findings (principal); N94.9 Unspecified condition associated with female genital organs and menstrual cycle; R10.2 Pelvic and perineal pain; K59.00 Constipation, unspecified | CPT/HCPCS: 99212 ==

== ENCOUNTER 2023-05-14 14:09 | Outpatient (AMB) | payer OTHER, SELFPAY ==
[2023-05-14 14:10] VITALS: BP 110/72; PULSE 65; O2SAT 98; BMI 21.6
--- NOTE | 2023-05-14 14:10 | MHC.PC.OV ---
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 Patient of Dr. Mark. Medical history significant for chronic back pain-uses tramadol p.r.n. with improvement-needs refill, vertigo, osteoporosis, oral thrush - since being on antibiotics last year for osteomyelitis and this year for BV. Reports that her throat and esophagus feel raw, also reports heartburn and burping. Reports taking Tums with mild improvement. Has ENT appointment 08/2023. Also has barium swallow in July. No nausea or vomiting. COUNT INCLUDES THE [facility] Medical History Pelvic pain Adnexal fullness Vaginal discharge Menopausal vaginal dryness Toe ulcer Physical exam Mild major depression, single episode Bunion, left Right knee pain COVID-19 Snoring Leukopenia Unintentional weight loss Vertigo Back pain Surgical History History of tonsillectomy History of bunionectomy History of tubal ligation History of inguinal hernia repair Family History Father Lung cancer Mother COPD (chronic obstructive pulmonary disease) Stroke Lung cancer Paternal Aunt Breast cancer Daughter In good health Family/Other Substance use disorder Mental health disorder Social History Housing: House Alcohol intake: former Patient Tobacco Use Status: Former Tobacco user Tobacco use type: Cigarette e-Cigarette/Vaping Use: Never Used Second Hand Smoke Exposure: No service: Yes Current occupational status: employed 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 How often do you have a drink containing alcohol?: Never Total Score: 0 Score Reviewed/Action Taken: No STEVEN-7 AMB Questionnaire STEVEN-7 Date STEVEN - 7 assessed: 09/09/22 Source: Developed by Drs. Suman Dominguez, Isaura Reyes, Huan Carrillo and colleagues, with an educational stefania from [employer]. Review of Systems Const Denies body aches ENT Denies dizziness, Denies otalgia, Denies nasal discharge, Denies sinus pain and Denies sore throat Card Denies chest pain, Denies lightheadedness and Denies dyspnea Resp Denies cough, Denies dyspnea and Denies wheezing GI Denies abdominal pain, Reports heartburn, Denies nausea and Denies vomiting Denies dysuria Musc Reports back pain and Denies myalgias Skin/Breast Denies rash Neuro Denies dizziness Aller/Immun Denies wheezing Physical exam (Primary Care) Vital Signs: Last Vital Signs Pulse 65 05/14/23 14:10 BP 110/72 05/14/23 14:10 Pulse Ox 98 05/14/23 14:10 Oxygen Delivery Method Room Air 05/14/23 14:10 BMI result Body Mass Index 21.6 Tobacco/Smoking Status: Tobacco use Status Tobacco use date assessed 05/14/23 05/14/23 14:11 Patient Tobacco Use Status Former Tobacco user 05/14/23 14:11 Tobacco use type Cigarette 05/14/23 14:11 e-Cigarette/Vaping Use Never Used 05/14/23 14:11 Thrive Assessment: Date of Thrive Assessment Date Thrive assessed 09/09/22 05/14/23 14:11 Const General: cooperative and no acute distress Orientation/consciousness: patient oriented x3 HENMT Other: Normal oral mucosa Head: Yes normocephalic and Yes atraumatic Mouth: oropharynx normal and moist mucous membranes Throat: Yes posterior oropharynx normal Eyes General: appearance normal, both eyes and all related structures Neck Neck: Yes normal visual inspection and Yes full ROM Resp Effort & Inspection: normal respiratory effort and able to speak in complete sentences Auscultation: clear to auscultation bilaterally, no crackles, no rales, no rhonchi and no wheezes Cardio Rate: regular rate Rhythm: regular rhythm Heart sounds: S1 normal heart sound present and S2 normal heart sound present GI Palpation (GI): Soft to palpation, not firm, nontender, no guarding, not rigid and no hepatosplenomegaly Auscultation: normal bowel sounds Skin General skin exam: no rashes or lesions noted Neuro General: patient oriented x3 Gait exam (Neuro): Normal gait present Extrem General: Yes full ROM and No edema Assessment and Plan Assessment & Plan (1) Heartburn: Code(s): R12 - Heartburn Plan: Start omeprazole 20 mg daily for 2 weeks Keep appointment for barium swallow as scheduled 07/2023 (2) Oral thrush: Code(s): B37.0 - Candidal stomatitis Plan: Oral mucosa normal on exam Patient has an upcoming appointment with ENT provider 08/2023 Patient reports that her esophagus and throat feels raw No difficulty swallowing Reports being on thrush medications with no improvement in the past Plan Keep appointment with PCP as scheduled or follow-up sooner as needed Medications: New omeprazole 20 mg PO DAILY 14 caps 0RF R12 - Heartburn Refilled tramadol 50 mg PO Q12H 30 days PRN 60 tabs 0RF pain Coding Level of Care Code Est Pt Level 3 (57099) Diagnoses Heartburn R12 Oral thrush B37.0
== END 2023-05-14 15:04 | disposition home or self-care (01) ==
PROVIDERS: PCP Internal Medicine; Visit Provider Nurse Practitioner Family
DX: R12 Heartburn (principal); B37.0 Candidal stomatitis
CPT/HCPCS: 99213

== ENCOUNTER 2023-06-22 09:19 | Outpatient (AMB) | payer OTHER, SELFPAY ==
[2023-06-22 10:06] VITALS: BP 120/68; PULSE 72; TEMP 36.9; O2SAT 96; BMI 22.0
--- NOTE | 2023-06-22 10:06 | MHC.OFFWIV ---
Intake Vital Signs 06/22/23 10:06 Height 5 ft 4 in Weight 128 lb BMI 22.0 BP 120/68 Blood Pressure Location Rt brachial Position Sitting Pulse 72 Pulse Source Pulse Oximeter Temp 98.5 F Temp Source Temporal Artery Scan Pulse Oximetry (%) 96 Oxygen Delivery Method Room Air Intake Visit Reasons: EST/chest congestion([phone]) Intake Note: Patient is here today for chest congestion startred Patient Tobacco Use Status: Former Tobacco user Allergies No Known Allergies [No Known Allergies*] Allergy (Verified 06/22/23 10:07) Do you need a note to return to daycare/school/sports/work: No HPI HPI Comments History of Present Illness Details Lindsey presents to the walk-in today for sick visit. C/O cough, body aches and fatigue for last 1 week. Has tested for covid several times all negative. Endorses cough, worse at night that is impacting sleep. Feels tight when the coughing starts, no history of asthma but has used MDI in the past for respiratory illnesses. Also in past had relief of cough with Tussin but has not used in years. Denies weakness, chest pain, shortness of breath. [facility] Medical History Pelvic pain Adnexal fullness Vaginal discharge Menopausal vaginal dryness Toe ulcer Physical exam Mild major depression, single episode Bunion, left Right knee pain COVID-19 Snoring Leukopenia Unintentional weight loss Vertigo Back pain Surgical History History of tonsillectomy History of bunionectomy History of tubal ligation History of inguinal hernia repair Family History Father Lung cancer Mother COPD (chronic obstructive pulmonary disease) Stroke Lung cancer Paternal Aunt Breast cancer Daughter In good health Family/Other Substance use disorder Mental health disorder Social History Housing: House Alcohol intake: former Patient Tobacco Use Status: Former Tobacco user Tobacco use type: Cigarette e-Cigarette/Vaping Use: Never Used Second Hand Smoke Exposure: No service: Yes Current occupational status: employed 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 Answers questions appropriately. Fully engaged in examination. Skin: warm, dry, intact HEENT: TMs intact bilaterally. +post nasal secretions. Posterior pharynx without erythema. Cardiac: External chest normal in appearance. Respiratory: +nonproductive cough. LSCTAB Abdomen: without gross distension. Neurological: Oriented to person, place, time and situation. Thought process intact. No gait abnormalities appreciated. Psychiatric: Appropriate mood and affect. Good judgment and insight. Assessment & Plan Assessment & Plan (1) URI (upper respiratory infection): Code(s): J06.9 - Acute upper respiratory infection, unspecified Plan URI, no antibiotics warranted. SARS-CoV2/FLU/RSV swab collected, results pending. Patient aware she will be called with results. Rest, drink plenty of fluids, tylenol and motrin as needed. Albuterol MDI as needed. Tussin cough as needed Work note provided Follow up with pcp or in clinic for any new or worsening symptoms. Go to ER for shortness of breath, chest pain, syncope, dizziness, weakness, palpiations. Orders: Orders SARS-CoV2/FLU/RSV Today J06.9 - Acute upper respiratory infection, unspecified Medications: New albuterol sulfate 90 mcg/actuation 2 inhalations inhalation Q6H PRN 1 ea 0RF shortness of breath or wheezing dextromethorphan-guaifenesin 10-100 mg/5 mL (Adult Tussin Cough Congestion DM) 10 mL PO Q6H PRN 500 mL 0RF cough Coding Level of Care Code Est Pt Level 3 (57698) Diagnoses URI (upper respiratory infection) J06.9
== END 2023-06-22 10:47 | disposition home or self-care (01) ==
PROVIDERS: PCP Internal Medicine; Visit Provider Registered Nurse Emergency
DX: J06.9 Acute upper respiratory infection, unspecified (principal)
CPT/HCPCS: 99213

== ENCOUNTER 2023-06-22 10:34 | Outpatient (REF) | payer OTHER, SELFPAY ==
[2023-06-22 14:21] LABS: Influenza A PCR NEGATIVE (Negative); Influenza B PCR NEGATIVE (Negative); Resp Syncy Virus RNA Qual PCR NEGATIVE (Negative); SARS COV2 PCR INHOUSE NEGATIVE (Negative)
== END 2023-06-22 10:35 | disposition home or self-care (01) ==
LOC: HO.LAB 10:34
PROVIDERS: Visit Provider Registered Nurse Emergency
DX: J06.9 Acute upper respiratory infection, unspecified (principal); Z11.52 Encounter for screening for COVID-19
CPT/HCPCS: 0241U

== ENCOUNTER 2023-07-09 08:59 | Outpatient (REF) | payer OTHER, SELFPAY | END 2023-07-09 09:00 | disposition home or self-care (01) | LOC: HO.XRAY 08:59 | PROVIDERS: PCP Internal Medicine; Visit Provider Internal Medicine | DX: B37.9 Candidiasis, unspecified (principal) | CPT/HCPCS: 74220 ==

== ENCOUNTER → 2023-07-09 08:59 | Outpatient (BNV) | payer OTHER, SELFPAY | PROVIDERS: PCP Internal Medicine; Visit Provider Radiology Diagnostic Radiology | DX: K21.9 Gastro-esophageal reflux disease without esophagitis (principal) | CPT/HCPCS: 74221 ==

== ENCOUNTER 2023-08-12 11:15 | Outpatient (AMB) | payer OTHER, SELFPAY ==
--- NOTE | 2023-08-12 11:30 | MHC.OFFVIS ---
Intake Vital Signs 08/12/23 11:32 Height 5 ft 4 in Weight 126 lb 8.725 oz BMI 21.7 BP 105/55 L Blood Pressure Location Lt brachial Position Sitting Pulse 64 Intake Visit Reasons: Abn findings of other parts of digestive tract Intake Note: Patient referred by PCP Dr. Mark for abnormal findings on recent Barrium swallow on 07-09-23. Allergies No Known Allergies [No Known Allergies*] Allergy (Verified 06/22/23 10:07) HPI HPI Comments History of Present Illness Details This is a 57 y.o F who is here for difficulty swallowing. Pt reports having intermittent heartburn for a few years now. Most recently, for the past 3 months has been noticing that food feels stuck in upper esophagus. Often has to rossy it with fluids. No changes in appetite, no nausea or vomiting. No issues with swallowing liquids. No unintentional weight loss. Has intermittently taken omeprazole for heartburn, but not taking it currently. Barium swallow was ordered by her primary care provider that shows reflux, tight cricopharyngeus and mild dysmotility. [facility] Medical History Pelvic pain Adnexal fullness Vaginal discharge Menopausal vaginal dryness Toe ulcer Physical exam Mild major depression, single episode Bunion, left Right knee pain COVID-19 Snoring Leukopenia Unintentional weight loss Vertigo Back pain Surgical History History of tonsillectomy History of bunionectomy History of tubal ligation History of inguinal hernia repair Family History Father Lung cancer Mother COPD (chronic obstructive pulmonary disease) Stroke Lung cancer Paternal Aunt Breast cancer Daughter In good health Family/Other Substance use disorder Mental health disorder Social History Housing: House Alcohol intake: former Patient Tobacco Use Status: Former Tobacco user Tobacco use type: Cigarette e-Cigarette/Vaping Use: Never Used Second Hand Smoke Exposure: No service: Yes Current occupational status: employed 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/hazards: No Cognitive needs: No Hearing needs: No Vision needs: Yes (reading glasses) Female Reproductive History Menstrual Age of Menarche: 13 Review of Systems Const All systems reviewed & are unremarkable except as noted in HPI and below Physical Exam Gen appear: NAD HEENT: nonicteric, no cervical lymphadenopathy Chest: CTA CVS: Regular S1/S2 Abd: soft, nontender, nondistended, bowel sounds + Ext: no peripheral edema Neuro: A/Ox3, noted to move all extremities spontaneously Psych: interacting appropriately Assessment & Plan Assessment & Plan (1) Abnormal barium swallow: Code(s): R93.3 - Abnormal findings on diagnostic imaging of other parts of digestive tract (2) Heartburn: Code(s): R12 - Heartburn (3) Dysphagia: Code(s): R13.10 - Dysphagia, unspecified Plan 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 Will benefit from upper endoscopy with dilation. Plan: -EGD with Savary dilation -omeprazole 20 mg p.o. to be taken once daily 30-40 minutes before breakfast -follow-up after EGD as needed Medications: Refilled omeprazole 20 mg PO DAILY 90 caps 0RF R12 - Heartburn Coding Level of Care Code New Pt Level 4 (68860) Diagnoses Abnormal barium swallow R93.3 Heartburn R12 Dysphagia R13.10
[2023-08-12 11:32] VITALS: BP 105/55; PULSE 64; BMI 21.7
== END 2023-08-12 11:47 | disposition home or self-care (01) ==
PROVIDERS: PCP Internal Medicine; Visit Provider Internal Medicine
DX: R93.3 Abnormal findings on diagnostic imaging of other parts of digestive tract (principal); R12 Heartburn; R13.10 Dysphagia, unspecified
CPT/HCPCS: 99204

== ENCOUNTER → 2023-08-12 11:15 | Outpatient (BNVA) | payer OTHER, SELFPAY | PROVIDERS: PCP Internal Medicine; Visit Provider Internal Medicine | DX: R93.3 Abnormal findings on diagnostic imaging of other parts of digestive tract (principal); R12 Heartburn; R13.10 Dysphagia, unspecified | CPT/HCPCS: 99202 ==

== ENCOUNTER 2023-09-16 08:23 | Outpatient (AMB) | payer OTHER, SELFPAY ==
--- NOTE | 2023-09-16 08:24 | MHC.PC.OV ---
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 Accompanied by: Self / Same As Patient Allergies alendronate Adverse Reaction (Intermediate, Uncoded 09/16/23 08:59) pill induced esophagitis Medication List - Last Reconciled 09/16/23 by Oma Diggs MD albuterol sulfate 90 mcg/actuation 2 inhalations inhalation Q6H PRN meclizine 25 mg PO TID PRN 30 days omeprazole 20 mg PO DAILY polyethylene glycol 3350 (Miralax) 17 grams PO DAILY tizanidine 4 mg PO BEDTIME PRN 30 days tramadol 50 mg PO Q12H PRN 30 days Tobacco use date assessed: 09/16/23 Dental Screening Dental Screen Date: 09/16/23 Did you have a dental visit in the last 12 months?: Yes Did you have a dental problem in the last 6 months where you did not have access to dental care?: No Was dental information given to patient?: Patient has dentist HPI HPI Comments History of Present Illness Details This is a 57-year-old female that comes for her physical exam. Last mammogram was October 2022. Last bone density was October 2022 and show osteoporosis and will be referred to rheumatology. She started alendronate but had pill induced esophagitis. Last colonoscopy was 2015 and was normal. Last Pap smear was 2018 and has an appointment with OBGYN in January 2024. Denies any chest pain or shortness of breath. Complains of epigastric pain and has achalasia and will have endoscopy November 2023 for esophageal dilation. [facility] Medical History Pelvic pain Adnexal fullness Vaginal discharge Menopausal vaginal dryness Toe ulcer Physical exam Mild major depression, single episode Bunion, left Right knee pain COVID-19 Snoring Leukopenia Unintentional weight loss Vertigo Back pain Surgical History History of tonsillectomy History of bunionectomy History of tubal ligation History of inguinal hernia repair Family History Father Lung cancer Mother COPD (chronic obstructive pulmonary disease) Stroke Lung cancer Paternal Aunt Breast cancer Daughter In good health Family/Other Substance use disorder Mental health disorder Social History Housing: House Alcohol intake: former Patient Tobacco Use Status: Former Tobacco user Tobacco use type: Cigarette e-Cigarette/Vaping Use: Never Used Second Hand Smoke Exposure: No service: Yes Current occupational status: employed 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 1. Little interest or pleasure in doing things: not at all 2. Feeling down, depressed, or hopeless: not at all 3. Trouble falling or staying asleep, or sleeping too much: not at all 4. Feeling tired or having little energy: not at all 5. Poor appetite or overeating: not at all 6. Feeling bad about yourself - or that you are a failure or have let yourself or your family down: not at all 7. Trouble concentrating on things, such as reading the newspaper or watching television: not at all 8. Moving or speaking so slowly that other people could have noticed. Or the opposite - being so fidgety or restless that you have been moving around a lot more than usual: not at all 9. Thoughts that you would be better off or of hurting yourself in some way: not at all Total score: 0 Depression Screening Interpretation: Negative Depression Screening Done: Yes 43547 - PHQ-9 Billing: Yes Source: Developed by Drs. Suman Dominguez, Isaura Reyes, Huan Carrillo and colleagues, with an educational stefania from [employer]. Thrive Questionnaire Date Thrive assessed: 09/16/23 I am a: Patient What is your living situation today?: I have a steady place to live Within the past 12 months, did the food you bought not last and you didn't have the money to get more?: Never true Within the past 12 months, did you worry whether your food would run out before you got money to buy more?: Never true Do you have trouble paying for medicines?: No Do you have trouble getting transportation to medical appointments?: No Do you have trouble paying your heating and electricity bill?: No Do you have trouble taking care of your child, family member or friend?: No Do you have trouble with day-to-day activities such as bathing, preparing meals, shopping, managing finances, etc.?: No Are you currently unemployed and looking for a job?: No Are you interested in more education?: No Please select the resources that you would like help with: None Currently or been in a relationship where the following occur: no concerns reported THRIVE Score: 0 AUDIT C Alcohol Use Questionnaire (AUDIT-C) 1. How often do you have a drink containing alcohol?: Never Total Score: 0 STEVEN-7 AMB Questionnaire STEVEN-7 Date STEVEN - 7 assessed: 09/16/23 Feeling nervous, anxious, or on edge: 0 = Not at all Not being able to stop or control worryin = Not at all Worrying too much about different things: 0 = Not at all Trouble relaxin = Not at all Being so restless that it is hard to sit still: 0 = Not at all Becoming easily annoyed or irritable: 0 = Not at all Feeling afraid as if something awful might happen: 0 = Not at all Total STEVEN-7 score (0-4 normal; 5-9 mild; 10-14 moderate; 15-21 severe): 0 Source: Developed by Drs. Suman Dominguez, Isaura Reyes, Huan Carrillo and colleagues, with an educational stefania from [employer]. STEVEN-7 Assessment Billing STEVEN-7 Assessment Tool: STEVEN-7 Assessment 16412 Review of Systems Const All systems reviewed & are unremarkable except as noted in HPI and below Eyes Reports no additional complaints, Denies change in vision and Denies other visual disturbances Card Denies chest pain at rest, Denies chest pain with activity, Denies edema, Denies irregular heart rhythm, Denies claudication, Denies dyspnea, Denies dyspnea on exertion, Denies orthopnea, Denies paroxysmal nocturnal dyspnea and Denies slow heart rate Resp Denies cough, Denies dyspnea and Denies dyspnea on exertion GI Denies abdominal pain, Denies change in bowel habits, Denies excessive flatus, Denies nausea and Denies vomiting Denies urinary incontinence, Denies urinary hesitancy and Denies urinary urgency Musc Denies abnormal gait, Denies atrophy, Denies deformity and Denies limited range of motion Skin/Breast Denies bleeding lesions, Denies changing lesions and Denies rash Neuro Denies abnormal gait, Denies behavioral changes, Denies confusion and Denies lack of coordination Psych Denies behavioral changes and Denies confusion Physical exam (Primary Care) Vital Signs: Last Vital Signs BP 120/72 09/16/23 08:25 BMI result Body Mass Index 21.1 Tobacco/Smoking Status: Tobacco use Status Tobacco use date assessed 09/16/23 09/16/23 08:28 Patient Tobacco Use Status Former Tobacco user 09/16/23 08:28 Tobacco use type Cigarette 09/16/23 08:28 e-Cigarette/Vaping Use Never Used 09/16/23 08:28 PHQ-9: PHQ-9 Score PHQ-9: Total score 0 09/16/23 09:16 Depression Screening Interpretation: Negative Thrive Assessment: Date of Thrive Assessment Date Thrive assessed 09/16/23 09/16/23 08:31 Currently or been in a relationship where the following occur: no concerns reported Const General: No confusion Orientation/consciousness: patient oriented x3 and No confusion HENMT Head: Yes normal to inspection, Yes normocephalic and Yes atraumatic Ears: external ears normal Eyes General: appearance normal, both eyes and all related structures Eyelids: Yes eyelids normal Conjunctivae: conjunctivae normal Neck Neck: Yes normal visual inspection and Yes supple Resp Effort & Inspection: normal respiratory effort Auscultation: clear to auscultation bilaterally Cardio Jugular venous distension: no JVD Rate: regular rate Rhythm: regular rhythm Heart sounds: S1 normal heart sound present and S2 normal heart sound present GI Inspection: Yes normal to inspection Palpation (GI): Soft to palpation and nontender Auscultation: normal bowel sounds Skin General skin exam: no rashes or lesions noted Neuro General: patient oriented x3, no focal motor deficits and No confusion Extrem General: Yes full ROM Psych Appearance: grossly normal Assessment and Plan Assessment & Plan (1) Physical exam: Code(s): Z00.00 - Encounter for general adult medical examination without abnormal findings Plan: Repeat in a year. Orders: Orders UA CC w/rflx Micro + Cult Today R30.0 - Dysuria Comprehensive [place]. Panel Fast Today Z00.00 - Encounter for general adult medical examination without abnormal findings Lipid Panel Today Z00.00 - Encounter for general adult medical examination without abnormal findings Referrals Rheumatology Referral M81.0 - Age-related osteoporosis without current pathological fracture Coding Level of Care Code Est Pt Prev Care 40-64y(50734) Diagnoses Physical exam Z00.00 Additional Codes STEVEN-7 Assessment Billing - STEVEN-7 Assessment Tool: STEVEN-7 Assessment 04171 ([id number]) Time Spent (min) 38
[2023-09-16 08:25] VITALS: BP 120/72; BMI 21.1
== END 2023-09-16 09:09 | disposition home or self-care (01) ==
PROVIDERS: Visit Provider Internal Medicine
DX: Z00.00 Encounter for general adult medical examination without abnormal findings (principal)
CPT/HCPCS: 99396

== ENCOUNTER 2023-10-12 06:21 | Outpatient (REF) | payer OTHER, SELFPAY ==
[2023-10-12 07:35] LABS: Appearance Urine Clear; Color Urine Yellow; Glucose Urine UA Negative (Negative); Leukocyte Esterase Urine Negative (Negative); Nitrite Urine Negative (Negative); Specific Gravity - Urine 1.015 (1.005-1.025); Urine Blood Negative (Negative); Urine Ketones Negative (Negative); Urine Protein Negative (Neg-Trace)
[2023-10-12 07:56] LABS: Alanine Aminotransferase 20 U/L (0-31); Alkaline Phosphatase 63 U/L (39-117); Anion Gap 10 (12-20); Aspartate Amino Transferase 17 U/L (5-31); Bilirubin Total 0.3 mg/dL (0.0-1.0); Blood Urea Nitrogen 19 mg/dL (9-16); Calcium 8.9 mg/dL (8.4-10.2); Carbon Dioxide 28 mmol/L (22-29); Chloride 108 mmol/L (96-108); Cholesterol 187 mg/dL (<200); Estimated Glomerular Filt Rate > 60; Glucose Fasting 80 mg/dL (60-99); HDL Cholesterol 48 mg/dL (>40); LDL Cholesterol Calculated 117 mg/dL (<100); Potassium 3.8 mmol/L (3.3-5.1); Sodium 142 mmol/L (135-145); Total Protein 6.4 g/dL (6.5-8.0); Triglycerides 112 mg/dL (<150)
== END 2023-10-12 06:22 | disposition home or self-care (01) ==
LOC: HO.LAB 06:21
PROVIDERS: PCP Internal Medicine; Visit Provider Internal Medicine
DX: Z00.00 Encounter for general adult medical examination without abnormal findings (principal); R30.0 Dysuria; Z13.220 Encounter for screening for lipoid disorders
CPT/HCPCS: 36415; 80053; 80061; 81003

== ENCOUNTER 2023-10-20 09:00 | Outpatient (AMB) | payer OTHER, SELFPAY ==
--- NOTE | 2023-10-20 09:01 | A.OFFVIS_ITS ---
Intake Vital Signs 10/20/23 09:07 Height 5 ft 4 in Weight 126 lb 1.671 oz BMI 21.6 BP 100/60 Blood Pressure Location Rt brachial Position Sitting Pulse 81 Pulse Source Pulse Oximeter Pulse Oximetry (%) 97 Oxygen Delivery Method Room Air Intake Visit Reasons: Osteoporosis Intake Note: New patient, internally referred, presents to office today for osteoporosis. Pt would like DEXA repeated. Insurance Administrative Assistant Required: No Accompanied by: Self / Same As Patient Allergies alendronate Adverse Reaction (Intermediate, Uncoded 10/20/23 09:07) pill induced esophagitis HPI HPI Comments History of Present Illness Details Ms. Heath 58 yoF presents for treatment of Osteoporosis on referral from PCP. Lowest T-Score -3.6. Patient shares that she was taking magnesium for night time muscle cramps. --Former smoker - quit over 20 years ago --Takes PPI - started 3 months ago --denies malabsorption, no bariatric [place] --no family history of hip fractures. --no use of steroids --Takes Vit D, no calcium --Not Thyroid concerns. --No inflammatory arthritis. --no eating disorder --Bunion surgery at 14 yo. 2 years ago Regrowth, did steroid injections that caused osteomylitis. --denies dental disease or planned deep dental procedure upcoming or within the last 3 months 09/16/2023 PCP Visit. This is a 57-year-old female that comes for her physical exam. Last mammogram was October 2022. Last bone density was October 2022 and show osteoporosis and will be referred to rheumatology. She started alendronate but had pill induced esophagitis. Last colonoscopy was 2015 and was normal. Last Pap smear was 2018 and has an appointment with OBGYN in January 2024. Denies any chest pain or shortness of breath. Complains of epigastric pain and has achalasia and will have endoscopy November 2023 for esophageal dilation. [facility] Medical History (Updated 10/20/23 @ 09:54 by MARIA FERNANDA Delacruz) GERD (gastroesophageal reflux disease) Esophagitis Hypovitaminosis D Pelvic pain Adnexal fullness Vaginal discharge Menopausal vaginal dryness Toe ulcer Physical exam Mild major depression, single episode Bunion, left Right knee pain COVID-19 Snoring Leukopenia Unintentional weight loss Vertigo Back pain Surgical History History of tonsillectomy History of bunionectomy History of tubal ligation History of inguinal hernia repair Family History Father Lung cancer Mother COPD (chronic obstructive pulmonary disease) Stroke Lung cancer Paternal Aunt Breast cancer Daughter In good health Family/Other Substance use disorder Mental health disorder Social History Housing: House Alcohol intake: former Patient Tobacco Use Status: Former Tobacco user Tobacco use type: Cigarette e-Cigarette/Vaping Use: Never Used Second Hand Smoke Exposure: No service: Yes Current occupational status: employed 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 Constitutional: Non-toxic appearing. No acute distress. Well-developed and well-nourished. HEENT: Normocephalic and atraumatic. External auditory canals without erythema or edema bilaterally. Dry mucous membranes. No pharyngeal erythema or exudates. Skin: Warm and dry. No rashes or lesions noted. Neck: Full and painless range of motion. No cervical lymphadenopathy. Cardio: Regular rate and rhythm. No murmurs, gallops, or rubs. No lower extremity edema. No JVD. Pulmonary: No respiratory distress. No accessory muscle usage. Gastrointestinal: Soft, nontender, and nondistended in all 4 quadrants. Normoactive bowel sounds in all 4 quadrants. Genitourinary: No CVA tenderness. Musculoskeletal: Normal range of motion in joints throughout the body. No deformity or other signs of injury. Neuro: Alert and oriented x4. Cranial nerves 2-12 grossly intact. No focal deficits appreciated. Results Reviewed Results Reviewed: 10/12/2023 Sodium 142, potassium 2.8, chloride 108, carbon dioxide 28 Creatinine 0.78, GFR 60 Calcium 8.9 bilirubin 0.3, AST 17, ALT 20 Alk-phos 63, total protein 6.4, albumin 4.0 Urine negative Assessment & Plan Assessment & Plan (1) Hypovitaminosis D: Code(s): E55.9 - Vitamin D deficiency, unspecified (2) Osteoporosis: Code(s): M81.0 - Age-related osteoporosis without current pathological fracture Qualifiers: Osteoporosis type: age-related Presence of current pathological fracture: without current pathological fracture Qualified Code(s): M81.0 - Age- related osteoporosis without current pathological fracture (3) Esophagitis: Code(s): K20.90 - Esophagitis, unspecified without bleeding (4) GERD (gastroesophageal reflux disease): Code(s): K21.9 - Gastro-esophageal reflux disease without esophagitis Qualifiers: Esophagitis presence: with esophagitis Esophagitis bleeding: without hemorrhage Qualified Code(s): K21.00 - Gastro-esophageal reflux disease with esophagitis, without bleeding Plan #Osteoporosis:Ms. Heath is here for osteoporosis treatment after doing Fosamax which she no longer finds tolerable due to esophagitis. I recommend starting Prolia given the pre-existing esophageal conditions. Her blood calcium levels is also on the lower end of the range at 8.9 (10/12/2023, 8.4) down from 9.7 (February 2023). The magnesium may have cause the calcium to be low as magnesium can prevent the absorption of calcium. She has stopped the magnesium. We will o btain an updated Bone Density (which can be done after 10/23) and labs to evaluate further and assess her readiness for treatment. Patient wants to wait for repeat bone density before moving ahead with treatment. We reviewed the possible side effects of Prolia. She will continue the PPI and vitamin D. We will obtain the PA for Prolia, if necessary, after the bone density is done. I spent 30 minutes reviewing history, evaluating patient, discussing treatment options and documenting Follow-up in 7 months Orders: Orders Collagen Type I C-Telopeptide Today E55.9 - Vitamin D deficiency, unspecified, M81.0 - Age-related osteoporosis without current pathological fracture TSH reflex Free T4 Today E55.9 - Vitamin D deficiency, unspecified, M81.0 - Age-related osteoporosis without current pathological fracture Parathyroid Hormone Intact Today E55.9 - Vitamin D deficiency, unspecified, M81.0 - Age-related osteoporosis without current pathological fracture Collagen Crosslinks NTX Today E55.9 - Vitamin D deficiency, unspecified, M81.0 - Age-related osteoporosis without current pathological fracture Calcium Today E55.9 - Vitamin D deficiency, unspecified, M81.0 - Age-related osteoporosis without current pathological fracture Albumin Level Today E55.9 - Vitamin D deficiency, unspecified, M81.0 - Age- related osteoporosis without current pathological fracture Vitamin D 25-OH Total Today E55.9 - Vitamin D deficiency, unspecified, M81.0 - Age-related osteoporosis without current pathological fracture XR DEXA axial skeleton Today M81.0 - Age-related osteoporosis without current pathological fracture Protein Electrophoresis, Serum Today E55.9 - Vitamin D deficiency, unspecified, M81.0 - Age-related osteoporosis without current pathological fracture Collagen Cross-linked,24U Today E55.9 - Vitamin D deficiency, unspecified, M81.0 - Age-related osteoporosis without current pathological fracture Alkaline Phosphatase Bone Today E55.9 - Vitamin D deficiency, unspecified, M81.0 - Age-related osteoporosis without current pathological fracture Phosphorus Today E55.9 - Vitamin D deficiency, unspecified, M81.0 - Age-related osteoporosis without current pathological fracture Coding Level of Care Code New Pt Level 4 (37363) Diagnoses Hypovitaminosis D E55.9 Age-related osteoporosis without current pathological fracture M81.0 Osteoporosis type: age-related Presence of current pathological fracture: without current pathological fracture Esophagitis K20.90 Gastroesophageal reflux disease with esophagitis without hemorrhage K21.00 Esophagitis presence: with esophagitis Esophagitis bleeding: without hemorrhage
[2023-10-20 09:07] VITALS: BP 100/60; PULSE 81; O2SAT 97; BMI 21.6
== END 2023-10-20 09:46 | disposition home or self-care (01) ==
PROVIDERS: PCP Internal Medicine; Visit Provider Nurse Practitioner Family
DX: E55.9 Vitamin D deficiency, unspecified (principal); M81.0 Age-related osteoporosis without current pathological fracture; K21.00 Gastro-esophageal reflux disease with esophagitis, without bleeding
CPT/HCPCS: 99203

== ENCOUNTER → 2023-10-20 09:00 | Outpatient (BNVA) | payer OTHER, SELFPAY | PROVIDERS: PCP Internal Medicine; Visit Provider Nurse Practitioner Family | DX: M81.0 Age-related osteoporosis without current pathological fracture (principal); K21.00 Gastro-esophageal reflux disease with esophagitis, without bleeding; E55.9 Vitamin D deficiency, unspecified | CPT/HCPCS: 99202 ==

== ENCOUNTER 2023-10-29 14:20 | Outpatient (REF) | payer OTHER, SELFPAY ==
--- NOTE | ~2023-10-29 | MM_ITS ---
EXAMINATION: MM SCREENING DIGITAL BREAST TOMOSYNTHESIS, BILATERAL CLINICAL INFORMATION: Screening. Asymptomatic. COMPARISON: Mammography: This study is compared with prior exams dating back to 2019. TECHNIQUE: Digital breast tomosynthesis is performed in both the craniocaudal and mediolateral oblique views along with computer-aided detection (CAD). Synthesized 2D images are generated from the tomosynthesis. FINDINGS: There are scattered areas of fibroglandular density (ACR BI-RADS breast composition Category b). There is a focal asymmetry in the upper outer quadrant of the right breast at a middle depth. It lies in close association with a single benign, coarse calcification. Additional mammographic and targeted sonographic imaging of this finding are advised. In the left breast, there are no significant masses, abnormal calcifications, or other abnormalities. MM/MM tomosynthesis screening BI IMPRESSION: Focal asymmetry of the right breast warrants additional mammographic and targeted sonographic imaging. No mammographic signs of malignancy left breast. ASSESSMENT: BI-RADS BI-RADS 0 - Incomplete: Needs additional Imaging. RECOMMENDATION: 1. Additional views of the right breast. 2. Targeted ultrasound if warranted after review of the additional views. 3. Radiology department staff will contact the patient for additional imaging. Additional Imaging required This examination should not preclude the clinical evaluation of a suspicious palpable abnormality. This patient's information was entered into a reminder system with a target due date for their next mammogram.
== END 2023-10-29 14:21 | disposition home or self-care (01) ==
LOC: HO.MAMMO 14:20
PROVIDERS: PCP Internal Medicine; Visit Provider Internal Medicine
DX: Z12.31 Encounter for screening mammogram for malignant neoplasm of breast (principal)
CPT/HCPCS: 77063; 77067

== ENCOUNTER → 2023-10-29 14:30 | Outpatient (BNV) | payer OTHER, SELFPAY | PROVIDERS: PCP Internal Medicine; Visit Provider Radiology Diagnostic Radiology | DX: Z12.31 Encounter for screening mammogram for malignant neoplasm of breast (principal) | CPT/HCPCS: 77063; 77067 ==

== ENCOUNTER 2023-11-27 13:56 | Outpatient (REF) | payer OTHER, SELFPAY ==
--- NOTE | ~2023-11-27 | MM_ITS ---
EXAMINATION: BONE DENSITOMETRY CLINICAL INDICATION: Age-related osteoporosis without current pathological fracture. COMPARISON: Baseline BD dated 10/23/2022. TECHNIQUE: Using a [employer] DXA System (software version: 13.1) manufactured by [employer], dual-energy x-ray absorptiometry was performed of the lumbar spine and left hip. The images are of good technical quality. Summary results are attached. FINDINGS: LEFT FEMUR, NECK: Current: BMD 0.673 g/cm2, Z-score -1.3, T-score -2.6, osteoporosis. Baseline: BMD 0.715 g/cm2. LEFT FEMUR, TOTAL: Current: BMD 0.774 g/cm2, Z-score -0.8, T-score -1.9, osteopenia, 2.0% increase from baseline (<5% change is not significant). Baseline: BMD 0.759 g/cm2. AP SPINE L1-L2 (excluding L3 and L4): The data of L1-L4 has been changed to exclude the L3 and L4 vertebral bodies, because degenerative sclerosis at these levels may cause overestimation of lumbar spine density. Current: BMD 0.687 g/cm2, Z-score -2.7, T-score -4.0, osteoporosis, 2.8% decrease from baseline (<5% change is not significant). Baseline: BMD 0.707 g/cm2. IDENTIFIED RISK FACTORS: Low calcium intake, menopause, osteoporosis. HISTORY OF FRACTURE: None listed. MEDICATIONS: Vitamin D. MM/XR DEXA axial skeleton IMPRESSION: 1. DIAGNOSIS: Osteoporosis based on the lowest T-score value of -4.0 in the lumbar spine applying World Health Organization criteria. 2. 10-YEAR FRACTURE RISK PREDICTION, FRAX: According to the guidelines, FRAX calculation should only be performed on patients in the osteopenia bone density category. Therefore, FRAX was not performed on this patient.? 3. Treatment Recommendations: NOF guidelines recommend consideration for treatment in postmenopausal women and men age 50 and older presenting with the following: -A hip or vertebral (clinical or morphometric) fracture. -T-score less than or equal to -2.5 at the femoral neck or spine after appropriate evaluation to exclude secondary causes. -Low bone mass at the hip or spine and a 10-year fracture probability by FRAX of greater than or equal to 3% for hip fracture or greater than or equal to 20% for major osteoporotic fracture based on the [place] adapted WHO algorithm. 4. Other Recommendations: All treatment decisions require clinical judgment and consideration of individual patient factors, including patient preferences, comorbidities, previous drug use, risk factors not captured in the FRAX model (e.g. frailty, falls, vitamin D deficiency, increased bone turnover, interval significant decline in bone density) and possible under or overestimation of fracture risk by FRAX. Additional medical evaluation for secondary cause of low bone mineral density may be appropriate. FUTURE SCAN RECOMMENDATION: People with diagnosed cases of osteoporosis or at high risk for fracture should have regular bone mineral density tests. For patients eligible for Medicare, routine testing is allowed once every 2 years. The testing frequency can be increased to one year for patients who have rapidly progressing disease, those who are receiving or discontinuing medical therapy to restore bone mass, or have additional risk factors.
== END 2023-11-27 13:57 | disposition home or self-care (01) ==
LOC: HO.MAMMO 13:56
PROVIDERS: PCP Internal Medicine; Visit Provider Internal Medicine
DX: Z13.820 Encounter for screening for osteoporosis (principal); Z78.0 Asymptomatic menopausal state; M81.0 Age-related osteoporosis without current pathological fracture
CPT/HCPCS: 77080

== ENCOUNTER → 2023-12-01 08:30 | Outpatient (BNV) | payer OTHER, SELFPAY | PROVIDERS: PCP Internal Medicine; Visit Provider Radiology Diagnostic Radiology | DX: R92.8 Other abnormal and inconclusive findings on diagnostic imaging of breast (principal) | CPT/HCPCS: 77061; 77065 ==

== ENCOUNTER 2023-12-01 08:32 | Outpatient (REF) | payer OTHER, SELFPAY ==
--- NOTE | ~2023-12-01 | MM_ITS ---
EXAMINATION: MM DIAGNOSTIC DIGITAL BREAST TOMOSYNTHESIS, RIGHT CLINICAL INFORMATION: Patient is called back for additional imaging of the focal asymmetry in the upper outer quadrant of the right breast at a middle depth, noted at the screening mammogram from 10/29/2023. COMPARISON: Mammography: This study is compared with prior examinations dating back to 2019. TECHNIQUE: Digital breast tomosynthesis is performed. 2D images are generated from the tomosynthesis. The following views are obtained: A full lateral view of the right breast and spot compression in the CC and MLO projections were obtained. FINDINGS: There are scattered areas of fibroglandular density (ACR BI-RADS breast composition Category b). Additional views show no significant mass, architectural abnormality, or abnormal calcifications. The original finding on the screening mammogram represents overlap of normal soft tissues of the breast. MM/MM tomosynthesis added views R IMPRESSION: No mammographic signs of malignancy. ASSESSMENT: BI-RADS BI-RADS 1 - Negative RECOMMENDATION: 1 year F/U Results were provided to the patient at time of visit by the technologist. This patient's information was entered into a reminder system with a target due date for their next mammogram.
== END 2023-12-01 08:33 | disposition home or self-care (01) ==
LOC: HO.MAMMO 08:32
PROVIDERS: PCP Internal Medicine; Visit Provider Internal Medicine
DX: N64.89 Other specified disorders of breast (principal)
CPT/HCPCS: 77061; 77065

== ENCOUNTER 2023-12-03 07:34 | Outpatient (REF) | payer OTHER, SELFPAY ==
[2023-12-03 09:23] LABS: Parathyroid Hormone Intact 56.2 pg/mL (8.7-77.1)
[2023-12-03 09:27] LABS: Albumin Level 4.1 g/dL (3.5-5.0); Calcium 8.8 mg/dL (8.4-10.2); Phosphorus 3.6 mg/dL (2.7-4.5)
[2023-12-03 09:45] LABS: TSH reflex Free T4 1.19 uIU/mL (0.32-4.0); Vitamin D 25-OH Total 81.8 ng/mL (>30)
[2023-12-04 22:24] LABS: Prot Elec - Alpha1 0.2 g/dL (0.2-0.3); Prot Elec - Alpha2 0.5 g/dL (0.5-0.9); Prot Elec - Beta 1 0.4 g/dL (0.4-0.6); Prot Elec - Beta 2 0.2 g/dL (0.2-0.5); Prot Elec - Gamma 0.6 g/dL (0.8-1.7); Prot Elec - Total Protein 5.9 g/dL (6.1-8.1)
[2023-12-05 19:44] LABS: Alkaline Phosphatase Bone 10.4 mcg/L (5.6-29.0)
[2023-12-07 21:43] LABS: Collagen Type I C-Telopeptide 421 pg/mL (see note)
[2023-12-09 07:13] LABS: N-Telopeptide 55 (see note); NTXCreaRU 93 mg/dL (20-275)
== END 2023-12-03 07:35 | disposition home or self-care (01) ==
LOC: HO.LAB 07:34
PROVIDERS: PCP Internal Medicine; Visit Provider Nurse Practitioner Family
DX: M81.0 Age-related osteoporosis without current pathological fracture (principal); E55.9 Vitamin D deficiency, unspecified
CPT/HCPCS: 36415; 82040; 82306; 82310; 82523; 83970; 84075; 84100; 84165; 84443

== ENCOUNTER 2023-12-15 12:00 | Outpatient (REF) | payer OTHER, SELFPAY ==
[2023-12-23 12:21] LABS: N-Telopeptide 24Hr Urine 36; NTX Total Volume 1775
[2023-12-23 12:22] LABS: NTX-Creatinine 24Hr Urine 1.08
== END 2023-12-15 12:01 | disposition home or self-care (01) ==
LOC: HO.LNP 12:00
PROVIDERS: Visit Provider Nurse Practitioner Family
DX: Z13.89 Encounter for screening for other disorder (principal)

== ENCOUNTER 2023-12-30 10:10 | Outpatient (AMB) | payer OTHER, SELFPAY ==
--- NOTE | 2023-12-30 10:24 | AM.OFFVISNUR ---
Intake Intake Visit Reasons: osteoporosis/prolia injection Allergies alendronate sodium Adverse Reaction (Intermediate, Verified 11/06/23 11:45) med induced esophagitis Office Meds Prolia 60 mg/mL subcutaneous syringe Performing Provider: Eloy Sam MD Performing Location: [facility] Administered by: Aurora Godfrey LPN on 12/30/23 10:26 Dose Route Admin Location Dispensed Lot Number Expiration Date NDC [employer] 60 mg subcut right upper arm 1 mL [id number] 03/05/26 [employer]GEN Coding Assessment & Plan Assessment & Plan Orders: Orders AMB Denosumab Injection Practice Supplied Today M81.0 - Age-related osteoporosis without current pathological fracture Medications: New Prolia (denosumab) 60 mg subcut ONCE 1 mL 0RF NS M81.0 - Age-related osteoporosis without current pathological fracture
== END 2023-12-30 10:23 | disposition home or self-care (01) ==
PROVIDERS: PCP Internal Medicine; Visit Provider Student in an Organized Health Care Education/Training Program
DX: M81.0 Age-related osteoporosis without current pathological fracture (principal)

== ENCOUNTER → 2023-12-30 10:10 | Outpatient (BNVA) | payer OTHER, SELFPAY | PROVIDERS: PCP Internal Medicine; Visit Provider Student in an Organized Health Care Education/Training Program | DX: M81.0 Age-related osteoporosis without current pathological fracture (principal) | CPT/HCPCS: 96372; J0897 ==

== ENCOUNTER 2024-03-29 06:56 | Day surgery (SDC) | payer OTHER, SELFPAY ==
[2023-11-06 11:46] VITALS: BMI 21.6
--- NOTE | 2023-11-09 09:08 | P.CONAN_ITS ---
HPI - Anesthesia Eval Consult details Narrative: 58yo F for Upper Endoscopy with Balloon Dilitation PMFSH Active Problems Active Problems: All Active Problems GERD (gastroesophageal reflux disease) (Acute) Esophagitis (Acute) Hypovitaminosis D (Acute) Dysphagia (Acute) Abnormal barium swallow (Acute) URI (upper respiratory infection) (Acute) Heartburn (Acute) Candidiasis (Acute) Oral thrush (Acute) Pelvic pain (Acute) Adnexal fullness (Acute) Vaginal discharge (Acute) Leukorrhea (Acute) Menopausal vaginal dryness (Acute) Osteoporosis (Acute) Chest pain (Acute) Bunion, left foot (Acute) Physical exam (Acute) Witnessed episode of apnea (Acute) Snoring (Acute) Leg cramps, sleep related (Acute) Bunion, left (Acute) Right knee pain (Acute) Encounter for annual routine gynecological examination (Acute) Snoring (Acute) Leukopenia (Acute) Unintentional weight loss (Acute) Vertigo (Acute) Back pain (Acute) Past Medical History Medical History (Updated 10/20/23 @ 09:54 [facility] GERD (gastroesophageal reflux disease) Esophagitis Hypovitaminosis D Pelvic pain Adnexal fullness Vaginal discharge Menopausal vaginal dryness Toe ulcer Physical exam Mild major depression, single episode Bunion, left Right knee pain COVID-19 Snoring Leukopenia Unintentional weight loss Vertigo Back pain Family History Family History Father Lung cancer Mother COPD (chronic obstructive pulmonary disease) Stroke Lung cancer Paternal Aunt Breast cancer Daughter In good health Family/Other Substance use disorder Mental health disorder Surgical History Surgical History History of tonsillectomy History of bunionectomy History of tubal ligation History of inguinal hernia repair Social History Social History Housing: House Alcohol intake: former Patient Tobacco Use Status: Former Tobacco user Tobacco use type: Cigarette e-Cigarette/Vaping Use: Never Used Second Hand Smoke Exposure: No service: Yes Current occupational status: employed 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
--- NOTE | 2024-03-25 10:32 | HO.ANESPROP2 ---
Documented by User: Rosario Maciel NP 03/25/24 10:34 HPI - Anesthesia Eval Consult details Narrative: 58yo F?Upper Endoscopy with Balloon Dilitation PMFSH Active Problems Active Problems: All Active Problems GERD (gastroesophageal reflux disease) (Acute) Esophagitis (Acute) Hypovitaminosis D (Acute) Dysphagia (Acute) Abnormal barium swallow (Acute) URI (upper respiratory infection) (Acute) Heartburn (Acute) Candidiasis (Acute) Oral thrush (Acute) Pelvic pain (Acute) Adnexal fullness (Acute) Vaginal discharge (Acute) Leukorrhea (Acute) Menopausal vaginal dryness (Acute) Osteoporosis (Acute) Chest pain (Acute) Bunion, left foot (Acute) Physical exam (Acute) Witnessed episode of apnea (Acute) Snoring (Acute) Leg cramps, sleep related (Acute) Bunion, left (Acute) Right knee pain (Acute) Encounter for annual routine gynecological examination (Acute) Snoring (Acute) Leukopenia (Acute) Unintentional weight loss (Acute) Vertigo (Acute) Back pain (Acute) Past Medical History Medical History GERD (gastroesophageal reflux disease) Esophagitis Hypovitaminosis D Pelvic pain Adnexal fullness Vaginal discharge Menopausal vaginal dryness Toe ulcer Physical exam Mild major depression, single episode Bunion, left Right knee pain COVID-19 Snoring Leukopenia Unintentional weight loss Vertigo Back pain Family History Family History Father Lung cancer Mother COPD (chronic obstructive pulmonary disease) Stroke Lung cancer Paternal Aunt Breast cancer Daughter In good health Family/Other Substance use disorder Mental health disorder Surgical History Surgical History History of tonsillectomy History of bunionectomy History of tubal ligation History of inguinal hernia repair Social History Social History Housing: House Alcohol intake: former Patient Tobacco Use Status: Former Tobacco user Tobacco use type: Cigarette e-Cigarette/Vaping Use: Never Used Second Hand Smoke Exposure: No Use of substances other than those prescribed or required for medical reasons: Yes Are you DNR?: No Advance Directives: No Advance Directives Information Provided: Yes Advance Directives on File: No Recently lost weight without trying: No Nutrition Risks: No Nutritional Risk Patient : No service: Yes Current occupational status: employed 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 Documented by User: Reba Davalos MD 03/29/24 08:47 PMFSH Past Medical History Medical History GERD (gastroesophageal reflux disease) Esophagitis Hypovitaminosis D Pelvic pain Adnexal fullness Vaginal discharge Menopausal vaginal dryness Toe ulcer Physical exam Mild major depression, single episode Bunion, left Right knee pain COVID-19 Snoring Leukopenia Unintentional weight loss Vertigo Back pain Family History Family History Father Lung cancer Mother COPD (chronic obstructive pulmonary disease) Stroke Lung cancer Paternal Aunt Breast cancer Daughter In good health Family/Other Substance use disorder Mental health disorder Surgical History Surgical History History of tonsillectomy History of bunionectomy History of tubal ligation History of inguinal hernia repair History of Problems with Anesthesia: No Social History Social History Housing: House Alcohol intake: former Patient Tobacco Use Status: Former Tobacco user Tobacco use type: Cigarette e-Cigarette/Vaping Use: Never Used Second Hand Smoke Exposure: No Use of substances other than those prescribed or required for medical reasons: Yes Are you DNR?: No Advance Directives: No Advance Directives Information Provided: Yes Advance Directives on File: No Recently lost weight without trying: No Nutrition Risks: No Nutritional Risk Patient : No service: Yes Current occupational status: employed 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/hazards: No Cognitive needs: No Hearing needs: No Vision needs: Yes (reading glasses) Meds Allergies Allergy/AdvReac Type Severity Reaction Status Date / Time alendronate sodium AdvReac Intermediate med Verified 11/06/23 11:45 induced esophagitis Exam Airway Mallampati Class: III TM Dist: >3cm Neck ROM: Full Loose/Missing/Broken Teeth: No Heart: RRR Lungs: CTA Assessment and Plan Assessment Anesthesia Assessment: Anesthesia Plan Discussed Final Anesthetic Review History of Problems with Anesthesia: No NPO: Yes ASA Class: II Final Preanesthetic Review: Meds/Allgs Chart Reviewed, Consent Obtained/Reviewed and Anes Risks/Benef Reviewed Patient Risk: Low Procedure Risk: Intermediate Anesthetic Plan Anesthetic Plan: MAC: Disposition: Standard PACU
[2024-03-29 07:23] VITALS: BMI 22.5
[2024-03-29 07:25] VITALS: BP 105/33; PULSE 76; RESP 16; TEMP 36.4; O2SAT 98
[2024-03-29] MEDS: Lactated Ringers 1,000 ML 100 ML IVCONT (07:42)
--- NOTE | 2024-03-29 08:03 | MHC.SHP ---
Pre-Procedural Eval Section A - 24 Hr Update-Section A only Date of Service: 03/29/24 Section B - Complete if H&P > 30 days Chief Complaint: Dysphagia, Details of Present Illness: Pelvic pain Adnexal fullness Vaginal discharge Menopausal vaginal dryness Toe ulcer Physical exam Mild major depression, single episode Bunion, left Right knee pain COVID-19 Snoring Leukopenia Unintentional weight loss Vertigo Back pain Surgical History History of tonsillectomy History of bunionectomy History of tubal ligation History of inguinal hernia repair Allergies: Allergies Allergy/AdvReac Type Severity Reaction Status Date / Time alendronate sodium AdvReac Intermediate med Verified 11/06/23 11:45 induced esophagitis Review of Systems Review of Systems Comment: Ten point ROS negative Exam Exam Comment: Gen appear: No acute distress HEENT: no icterus Chest: No overt resp distress Abd: soft, nontender, nondistended Psych: Stable affect, answering questions appropriately Neuro: A/Ox3 noted to move all extremities spontaneously Ext: no peripheral edema Plan Diagnosis/Plan: Unchanged I have reviewed the history and physical and performed a pertinent physical examination on my patient. No changes have occurred unless specified. Time Spent With Patient Time: Total time managing care of this patient today ____ minutes.
--- NOTE | 2024-03-29 08:38 | P.OP_ITS ---
Operative Note Operative Note Date of Service: 03/29/24 Narrative: Procedure: Esophagogastroduodenoscopy Endoscopist: Joleen Vail MD Indication: Dysphagia Anesthesia Provider: Dr Kim Davalos Anesthesia Type: MAC ?? EGD Procedure:?? The procedure, indications, preparation and potential complications were reviewed with the patient, who indicated understanding and gave written informed consent to proceed. A physical exam was performed. The endoscope was introduced through the mouth, and advanced to the second part of duodenum. The mucosa was carefully examined on slow withdrawal of the endoscope. The patient tolerated the procedure well. There were no immediate complications.? ? EGD Findings:? * Esophagus:? A localised patch of heterotopic gastric mucosa was noted in the upper esophagus. Normal mucosa noted in the entire esophagus. The Z line was at 38 cm and irregular up to 37 cm. GEJ cold forceps biopsies were taken to r/o Coe's. Middle esophagus forceps biopsies were obtained to rule out eosinophilic esophagitis. * Stomach:? Normal mucosa was noted in the stomach. Retroflexion was performed in the cardia. Random gastric biopsies were taken to rule out H Pylori infection. * Duodenum:? Mild erythema and erosions in the duodenal bulb. Cold Biopsies were taken from second portion of the duodenum to rule out celiac sprue. Additional intervention: A soft tipped Savary wire was passed through the gastroscope and left in the antrum. A gastroscope was then backed out. Savary Sherie bougie was advanced over the guidewire and the esophagus was dilated to 19 mm. On relook, there was scant heme at 22 cm confirming successful dilation. ? EGD Impressions:? * Inlet patch * UES stenosis (dilation) * Irregular Z line (biopsy) * Normal stomach (biopsy) * Bulbar duodenitis (biopsy) ?? Recommendations:?? * Follow biopsy results. Our office will call or send a letter with results within 7-10 days. * Continue PPI therapy. * If BE confirmed repeat EGD will be contingent on presence and extent of dysplasia. * If H pylori +, patient will be prescribed eradication therapy followed by test of cure. * Avoid NSAIDs. * If pt has improvement in swallowing after the procedure, dilation can be repeated as needed for recurrence of symptoms Above has been reviewed with the patient.
[2024-03-29 09:00] VITALS: BP 92/38; PULSE 74; RESP 18; TEMP 36.1; O2SAT 97
[2024-03-29 09:15] VITALS: BP 109/61; PULSE 67; RESP 16; TEMP 36.2; O2SAT 98
[2024-03-29 09:29] VITALS: BP 112/62; PULSE 70; RESP 16; TEMP 36.2; O2SAT 100
== END 2024-03-29 10:12 | disposition home or self-care (01) ==
PROVIDERS: PCP Internal Medicine; Visit Provider Internal Medicine
PROC: (CPT 43248; principal; 2024-03-29 08:30)
DX: K29.80 Duodenitis without bleeding (principal); K22.2 Esophageal obstruction; K22.89 Other specified disease of esophagus; Q39.8 Other congenital malformations of esophagus; R13.10 Dysphagia, unspecified; R12 Heartburn; Z87.891 Personal history of nicotine dependence
CPT/HCPCS: 43248; 43239; 88305; 88313; 88342; C1769; J2704

== ENCOUNTER → 2024-03-29 06:56 | Outpatient (BNV) | payer OTHER, SELFPAY | PROVIDERS: PCP Internal Medicine; Visit Provider Internal Medicine | DX: K22.2 Esophageal obstruction (principal); K29.80 Duodenitis without bleeding; Q39.8 Other congenital malformations of esophagus | CPT/HCPCS: 43239; 43248 ==

== ENCOUNTER 2024-04-11 08:50 | Outpatient (AMB) | payer OTHER, SELFPAY ==
--- NOTE | 2024-04-11 08:51 | MHC.OFFVIS ---
Vital Signs 04/11/24 08:52 Height 5 ft 3 in Weight 125 lb BMI 22.1 BP 115/61 Blood Pressure Location Lt brachial Position Sitting Pulse 67 Intake Visit Reasons: S/p egd Intake Note: Lindsey presents in office today for a follow up EGD. CC: She states that she wants to discuss the omeprazole and that maybe she should add pepcid. Impregnator Operator Required: No Allergies alendronate sodium Adverse Reaction (Intermediate, Verified 04/11/24 08:56) med induced esophagitis HPI Comments Details: This is a 57 y.o F who is here for difficulty swallowing. Pt reports having intermittent heartburn for a few years now. Most recently, for the past 3 months has been noticing that food feels stuck in upper esophagus. Often has to rossy it with fluids. No changes in appetite, no nausea or vomiting. No issues with swallowing liquids. No unintentional weight loss. Has intermittently taken omeprazole for heartburn, but not taking it currently. Barium swallow was ordered by her primary care provider that shows reflux, tight cricopharyngeus and mild dysmotility. 03/29/24: EGD Inlet patch UES stenosis (dilation) Irregular Z line (biopsy) Normal stomach (biopsy) Bulbar duodenitis (biopsy) A. Duodenum, biopsy: Small intestinal mucosa within normal limits. B. Stomach, random, biopsy: Antral-type and oxyntic mucosa with mild chronic inactive inflammation; no Helicobacter organisms seen. C. GE junction, biopsy: - Cardiofundic-type mucosa with moderate chronic inactive inflammation; no intestinal metaplasia seen. - No squamous epithelium seen. D. Esophagus, mid, biopsy: Squamous epithelium within normal limits; no inflammation seen 04/11/24: Reports improvement in heartburn as well as swallowing problem since taking omeprazole daily as well as the dilation. No issues at present. Up to date on CRC screening. Last colo 2016 (Dr Blackwell) - 10 y recall. [facility] Medical History GERD (gastroesophageal reflux disease) Esophagitis Hypovitaminosis D Pelvic pain Adnexal fullness Vaginal discharge Menopausal vaginal dryness Toe ulcer Physical exam Mild major depression, single episode Bunion, left Right knee pain COVID-19 Snoring Leukopenia Unintentional weight loss Vertigo Back pain Surgical History (Updated 04/11/24 @ 08:57 by OAM Lucas) Hx of colonoscopy History of esophagogastroduodenoscopy (EGD) History of tonsillectomy History of bunionectomy History of tubal ligation History of inguinal hernia repair Family History Father Lung cancer Mother COPD (chronic obstructive pulmonary disease) Stroke Lung cancer Paternal Aunt Breast cancer Daughter In good health Family/Other Substance use disorder Mental health disorder Social History Housing: House Alcohol intake: former Patient Tobacco Use Status: Former Tobacco user Tobacco use type: Cigarette e-Cigarette/Vaping Use: Never Used Second Hand Smoke Exposure: No service: Yes Current occupational status: employed 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/hazards: No Cognitive needs: No Hearing needs: No Vision needs: Yes (reading glasses) Female Reproductive History Menstrual Age of Menarche: 13 Physical Exam Vital Signs: Last Vital Signs Pulse 67 04/11/24 08:52 BP 115/61 04/11/24 08:52 BMI result Body Mass Index 22.1 No apparent distress Nonicteric Abdomen soft, nondistended Alert and oriented x3, normal gait Assessment & Plan Assessment & Plan (1) GERD (gastroesophageal reflux disease): Code(s): K21.9 - Gastro-esophageal reflux disease without esophagitis Category: Medical Qualifiers: Esophagitis presence: with esophagitis Esophagitis bleeding: without hemorrhage Qualified Code(s): K21.00 - Gastro-esophageal reflux disease with esophagitis, without bleeding (2) Esophagitis: Code(s): K20.90 - Esophagitis, unspecified without bleeding Category: Medical (3) Dysphagia: Code(s): R13.10 - Dysphagia, unspecified Category: Medical (4) Abnormal barium swallow: Code(s): R93.3 - Abnormal findings on diagnostic imaging of other parts of digestive tract Category: Medical Plan Dysphagia likely 2/2 combination of ineffective motility and UES stenosis. Sx much better since taking PPI daily and dilation. Plan: - Cont PPI x 8 weeks and then switch to pepcid 10 mg (pt with osteoporosis). Pt encouraged to msg on portal for script - Can repeat dilation as needed for return of sx - CRC screening due in 2025- reminder set. Bulletin board updated. Follow up as neede. Coding Level of Care Code Est Pt Level 4 (51779) Diagnoses Gastroesophageal reflux disease with esophagitis without hemorrhage K21.00 Esophagitis presence: with esophagitis Esophagitis bleeding: without hemorrhage Esophagitis K20.90 Dysphagia R13.10 Abnormal barium swallow R93.3
[2024-04-11 08:52] VITALS: BP 115/61; PULSE 67; BMI 22.1
== END 2024-04-11 09:36 | disposition home or self-care (01) ==
PROVIDERS: PCP Internal Medicine; Visit Provider Internal Medicine
DX: K21.00 Gastro-esophageal reflux disease with esophagitis, without bleeding (principal); R13.10 Dysphagia, unspecified; R93.3 Abnormal findings on diagnostic imaging of other parts of digestive tract
CPT/HCPCS: 99214

== ENCOUNTER 2024-04-11 08:50 | Outpatient (REF) | payer OTHER, SELFPAY | END 2024-04-11 08:51 | disposition home or self-care (01) | LOC: HO.XRAY 08:50 | PROVIDERS: Absent Provider Internal Medicine; PCP Internal Medicine; Visit Provider Internal Medicine | DX: R68.84 Jaw pain (principal); K21.9 Gastro-esophageal reflux disease without esophagitis; K20.90 Esophagitis, unspecified without bleeding; R13.10 Dysphagia, unspecified; R93.3 Abnormal findings on diagnostic imaging of other parts of digestive tract; Z98.890 Other specified postprocedural states | CPT/HCPCS: 70100; 99212 ==

== ENCOUNTER 2024-04-19 15:03 | Outpatient (AMB) | payer OTHER, SELFPAY ==
--- NOTE | 2024-04-19 15:04 | MHC.OFFVIS ---
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 She is doing well with no concerns. Attempting to eat a healthy diet with calcium and vitamin D and stays active with exercise. Rarely sexually active due to vaginal pain, unable to complete, history of significant vaginal infection. Last pap smear; 2018. Last mammogram; 2023. Colonoscopy is UTD. Denies any family history of ovarian or colon cancer. FH breast cancer-P.aunt. [facility] Medical History GERD (gastroesophageal reflux disease) Esophagitis Hypovitaminosis D Pelvic pain Adnexal fullness Vaginal discharge Menopausal vaginal dryness Toe ulcer Physical exam Mild major depression, single episode Bunion, left Right knee pain COVID-19 Snoring Leukopenia Unintentional weight loss Vertigo Back pain Surgical History Hx of colonoscopy History of esophagogastroduodenoscopy (EGD) History of tonsillectomy History of bunionectomy History of tubal ligation History of inguinal hernia repair Family History Father Lung cancer Mother COPD (chronic obstructive pulmonary disease) Stroke Lung cancer Paternal Aunt Breast cancer Daughter In good health Family/Other Substance use disorder Mental health disorder Social History Housing: House Alcohol intake: former Patient Tobacco Use Status: Former Tobacco user Tobacco use type: Cigarette e-Cigarette/Vaping Use: Never Used Second Hand Smoke Exposure: No service: Yes Current occupational status: employed 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/hazards: No Cognitive needs: No Hearing needs: No Vision needs: Yes (reading glasses) Female Reproductive History Menstrual Age of Menarche: 13 control method: permanent sterilization Permanent Sterilization: BTL Age of menopause: 45 Total pregnancies: 3 Full term: 3 Number of Living Children: 3 Date of last pap smear: 11/01/18 History of abnormal pap smear: No History of STI: No Date of Mammogram: 10/29/23 History of abnormal mammogram: No Date of last Bone Density Screenin11/28/23 Review of Systems Const All systems reviewed & are unremarkable except as noted in HPI and below Reports as per HPI Eyes Reports no additional complaints ENT Reports no additional complaints Card Reports no additional complaints Resp Reports no additional complaints GI Reports as per HPI and Reports no additional complaints Reports as per HPI Musc Reports no additional complaints Skin/Breast Reports as per HPI Neuro Reports no additional complaints Psych Reports no additional complaints Endo Reports no additional complaints Brandon/Lymph Reports no additional complaints Aller/Immun Reports no additional complaints Physical Exam Vital Signs: Last Vital Signs BP 130/74 04/19/24 15:05 BMI result Body Mass Index 22.5 Const General: cooperative, healthy appearing, no acute distress, well developed and alert Orientation/consciousness: patient oriented x3 HEENT Head: Yes normal to inspection Eyes General: appearance normal, both eyes and all related structures Neck Neck: Yes normal visual inspection Thyroid: Thyroid normal Chest Chest palpation & inspection: normal inspection of the chest and other (no puckering, dimpling, peau de orange, retraction, discharge, masses) Breast/axilla inspection: normal inspection of the breasts Breast/axilla palpation: normal palpation of the breasts Resp Effort & Inspection: normal respiratory effort GI Inspection: Yes normal to inspection Palpation (GI): Soft to palpation Rectal Exam - Female: deferred Other: Limited exam due to vaginal fusion External Female Exam: normal external appearance and normal appearance of the urethra Speculum Exam - Vagina: vagina atrophic (Vagina 4 cm depth fused except for a pin hole at 03:00 ) Skin General skin exam: no rashes or lesions noted Rashes: no rashes Neuro General: patient oriented x3 Cognition (Neuro): normal cognition Extrem General: Yes normal to inspection Psych Attitude: cooperative Thought process: Normal thought process present Assessment & Plan Assessment & Plan (1) Encounter for well woman exam with routine gynecological exam: Code(s): Z01.419 - Encounter for gynecological examination (general) (routine) without abnormal findings Category: Medical Plan Discussed: Current recommendations for pap smears per ASCCP guidelines. Unable to be completed today due to vaginal fusion. Breast awareness, periodic self breast exams and yearly mammogram. Maintain a healthy lifestyle, well balanced diet including Calcium 1,200 mg and Vitamin D 600 IU daily, and routine exercise. Reviewed the use of vaginal dilators, [place] website. She denies any contraindications to estrogen use. The role of estrogen for vaginal atrophy and risks, instructions reviewed. Rx for Estrace. Follow up in 1 month or sooner as needed. Contact the office with any postmenopausal bleeding. Patient verbalizes understanding and agrees to the plan of care. She was given opportunity to ask questions and all questions were answered to the best of my ability. RTO in 1 year for annual steam pipe fitter exam. This note is constructed using voice recognition software. While every effort has been made to ensure accuracy, filters assembler errors may have been included. Medications: New estradiol 0.01%(0.1mg/gram) (Estrace) use nightly for two weeks, then twice a week at bedtime. 1 g vaginal 2XW 42.5 grams 1RF Coding Level of Care Code Est Pt Prev Care 40-64y(60310) Diagnoses Encounter for well woman exam with routine gynecological exam Z01.419
[2024-04-19 15:05] VITALS: BP 130/74; BMI 22.5
== END 2024-04-19 15:53 | disposition home or self-care (01) ==
PROVIDERS: PCP Internal Medicine; Visit Provider Advanced Practice Midwife
DX: Z01.419 Encounter for gynecological examination (general) (routine) without abnormal findings (principal)
CPT/HCPCS: 99396

== ENCOUNTER → 2024-04-19 15:03 | Outpatient (BNVA) | payer OTHER, SELFPAY | PROVIDERS: PCP Internal Medicine; Visit Provider Advanced Practice Midwife ==

== ENCOUNTER 2024-05-20 14:04 | Outpatient (AMB) | payer OTHER, SELFPAY ==
--- NOTE | 2024-05-20 14:12 | MHC.OFFVIS ---
Intake Visit Reasons: 1 month Recheck Email Operations Manager Required: No Home Stereo Equipment Installer: Home Stereo Equipment Installer Present (Chari) Accompanied by: Self / Same As Patient Allergies alendronate sodium Adverse Reaction (Intermediate, Verified 05/20/24 14:15) med induced esophagitis Is last menstrual period known: Yes HPI Comments Details: Patient is here today for a follow up on her hormone Estrace therapy due to atrophic vaginitis constriction. She has just completed the daily dose for 2 weeks. She has ordered the vaginal dilators but they have not arrived yet. [facility] Medical History GERD (gastroesophageal reflux disease) Esophagitis Hypovitaminosis D Pelvic pain Adnexal fullness Vaginal discharge Menopausal vaginal dryness Toe ulcer Physical exam Mild major depression, single episode Bunion, left Right knee pain COVID-19 Snoring Leukopenia Unintentional weight loss Vertigo Back pain Surgical History Hx of colonoscopy History of esophagogastroduodenoscopy (EGD) History of tonsillectomy History of bunionectomy History of tubal ligation History of inguinal hernia repair Family History Father Lung cancer Mother COPD (chronic obstructive pulmonary disease) Stroke Lung cancer Paternal Aunt Breast cancer Daughter In good health Family/Other Substance use disorder Mental health disorder Social History Housing: House Alcohol intake: former Patient Tobacco Use Status: Former Tobacco user Tobacco use type: Cigarette e-Cigarette/Vaping Use: Never Used Second Hand Smoke Exposure: No service: Yes Current occupational status: employed 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 External Female Exam: normal external appearance and normal appearance of the urethra Speculum Exam - Vagina: vagina atrophic and other (Short vaginal canal w/left pocket 3cm deep) Psych Appearance: well kempt Attitude: cooperative Thought process: Normal thought process present Assessment & Plan Assessment & Plan (1) Vaginal adhesions: Code(s): N89.5 - Stricture and atresia of vagina (2) Vaginal atrophy: Code(s): N95.2 - Postmenopausal atrophic vaginitis Plan Reviewed plan of care continue with the estrogen now by weekly, report any issues or concerns prior to her next visit in 2-3 months. Has reviewed video for use of dilators. Has refill for estrogen. All of her questions and concerns were addressed to the best of my ability and shared decision making. She is agreeable to the plan of care. This note is constructed using voice recognition software. While every effort has been made to ensure accuracy, drug abuse technician errors may have been included. Coding Level of Care Code Est Pt Level 3 (10331) Diagnoses Vaginal adhesions N89.5 Vaginal atrophy N95.2
== END 2024-05-20 14:50 | disposition home or self-care (01) ==
LOC: HO.HWS 14:04
PROVIDERS: PCP Internal Medicine; Visit Provider Advanced Practice Midwife
DX: N95.2 Postmenopausal atrophic vaginitis (principal)
CPT/HCPCS: 99213

== ENCOUNTER → 2024-05-20 14:04 | Outpatient (BNVA) | payer OTHER, SELFPAY | PROVIDERS: PCP Internal Medicine; Visit Provider Advanced Practice Midwife | DX: N89.5 Stricture and atresia of vagina (principal); N95.2 Postmenopausal atrophic vaginitis | CPT/HCPCS: 99212 ==

== ENCOUNTER 2024-06-30 16:11 | Outpatient (REF) | payer OTHER, SELFPAY ==
[2024-06-30 16:57] LABS: Anion Gap 11 (12-20); Blood Urea Nitrogen 15 mg/dL (9-16); Carbon Dioxide 28 mmol/L (22-29); Chloride 106 mmol/L (96-108); Estimated Glomerular Filt Rate > 60; Glucose Random 69 mg/dL (60-115); Potassium 3.8 mmol/L (3.3-5.1); Sodium 141 mmol/L (135-145)
[2024-07-03 12:09] LABS: Vitamin D 25-OH, D2 <4 ng/mL; Vitamin D 25-OH, D3 50 ng/mL; Vitamin D 25-OH, Total 50 ng/mL (30-100)
== END 2024-06-30 16:12 | disposition home or self-care (01) ==
LOC: HO.LAB 16:11
PROVIDERS: PCP Internal Medicine; Visit Provider Student in an Organized Health Care Education/Training Program
DX: M81.0 Age-related osteoporosis without current pathological fracture (principal); E55.9 Vitamin D deficiency, unspecified
CPT/HCPCS: 36415; 80048; 82306

== ENCOUNTER 2024-07-04 15:29 | Outpatient (AMB) | payer OTHER, SELFPAY ==
--- NOTE | 2024-07-04 15:40 | AM.OFFVISNUR ---
Intake Visit Reasons: prolia inj Allergies alendronate sodium Adverse Reaction (Intermediate, Verified 05/20/24 14:15) med induced esophagitis Office Meds Prolia 60 mg/mL subcutaneous syringe Performing Provider: Eloy Sam MD Performing Location: [facility] [place] Rheumatology Administered by: Blanca Reyes RN on 07/04/24 15:40 Dose Route Admin Location Dispensed Lot Number Expiration Date NDC Mechanical Sound Technician 60 mg subcut right upper arm 1 mL [id number] 01/02/27 49674-426-44 AMGEN Comments: Cosent form signed by patient. Pt tolerated injection well. Pt denies any adverse reactions with previous injections. Pt scheduled for f/u with Dr. Khoury in January. Assessment & Plan Assessment & Plan Orders: Orders AMB Denosumab Injection Practice Supplied Today M81.0 - Age-related osteoporosis without current pathological fracture Medications: New Prolia (denosumab) 60 mg subcut ONCE 1 mL 0RF NS M81.0 - Age-related osteoporosis without current pathological fracture
== END 2024-07-04 15:39 | disposition home or self-care (01) ==
PROVIDERS: PCP Internal Medicine
DX: M81.0 Age-related osteoporosis without current pathological fracture (principal)

== ENCOUNTER → 2024-07-04 15:29 | Outpatient (BNVA) | payer OTHER, SELFPAY | PROVIDERS: PCP Internal Medicine | DX: M81.0 Age-related osteoporosis without current pathological fracture (principal) | CPT/HCPCS: 96372; J0897 ==

== ENCOUNTER 2024-09-21 08:23 | Outpatient (AMB) | payer OTHER, SELFPAY ==
--- NOTE | 2024-09-21 08:31 | A.OFFPC_ITS ---
Vital Signs 09/21/24 08:32 Height 5 ft 3 in Weight 121 lb BMI 21.4 BP 110/72 Blood Pressure Location Lt brachial Position Sitting Intake Visit Reasons: Annual Exam Intake Note: Patient here for a physical exam Paid Search Manager Required: No Accompanied by: Self / Same As Patient Allergies alendronate sodium Adverse Reaction (Intermediate, Verified 09/21/24 08:46) med induced esophagitis Medication List - Last Reconciled 09/21/24 by Oma Diggs MD albuterol sulfate 90 mcg/actuation 2 inhalations inhalation Q6H PRN alprazolam 0.5 mg PO DAILY PRN 30 days denosumab (Prolia) 60 mg subcut [id number] meclizine 25 mg PO TID PRN 30 days polyethylene glycol 3350 (Miralax) 17 grams PO DAILY tizanidine 4 mg PO BEDTIME PRN 30 days tramadol 50 mg PO Q12H PRN 30 days Tobacco use date assessed: 09/21/24 Dental Screening Dental Screen Date: 09/21/24 Did you have a dental visit in the last 12 months?: Yes Did you have a dental problem in the last 6 months where you did not have access to dental care?: No Was dental information given to patient?: Patient has dentist HPI HPI Comments History of Present Illness Details The patient is a 58-year-old female presenting for her annual physical examination. She is currently managing osteoporosis with biannual Prolia injections, after experiencing difficulty with Fosamax due to esophagitis-like symptoms. Her last DEXA scan from the previous year showed significant osteoporosis with a lumbar spine T-score of -4, and her next scan is scheduled for 2025. Post-barium swallow abnormalities were treated with omeprazole until she achieved symptomatic relief with dilation, allowing cessation of the medication. The patient has been managing anxiety with as-needed alprasolam and recognizes occasional cannabis use contributes positively to her gastrointestinal comfort and anxiety management. Notably, she experiences intermittent shortness of breath and chest pain, characterized by heaviness that is non-debilitating and sporadic, with potential menopausal linkage. A previous colonoscopy in 2016 indicates her next screening will be necessary in 2025. A gynecological consult reflects problematic interactions, leading to a change of provider, with outstanding issues from a potential vaginal fusion hindering prior Pap smear attempts since her last assessment in 2019. Despite recent weight fluctuations related to menopausal symptoms, her weight is stable at 121 pounds, aligning with her personal health goals. - Tdap vaccination discussed, last recor ded in 2009, administered today. - Mammogram completed last year, pending routine follow-up. - Bone density scan performed last year; follow-up scheduled in 2025. - Colonoscopy completed in 2015, next sc heduled for 2025. - Recommendations from endoscopic evalua tion: resolved heartburn post dilation. - Healthy lifestyle discourse: nutrition al adjustments, maintaining active employment. [facility] Medical History (Updated 09/21/24 @ 08:57 by Oma Diggs MD) GERD (gastroesophageal reflux disease) Esophagitis Hypovitaminosis D Pelvic pain Adnexal fullness Vaginal discharge Menopausal vaginal dryness Toe ulcer Physical exam Mild major depression, single episode Bunion, left Right knee pain COVID-19 Snoring Leukopenia Unintentional weight loss Vertigo Back pain Surgical History Hx of colonoscopy History of esophagogastroduodenoscopy (EGD) History of tonsillectomy History of bunionectomy History of tubal ligation History of inguinal hernia repair Family History Father Lung cancer Mother COPD (chronic obstructive pulmonary disease) Stroke Lung cancer Paternal Aunt Breast cancer Daughter In good health Family/Other Substance use disorder Mental health disorder Social History Housing: House Alcohol intake: former Patient Tobacco Use Status: Former Tobacco user Tobacco use type: Cigarette e-Cigarette/Vaping Use: Never Used Second Hand Smoke Exposure: No service: Yes Current occupational status: employed 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 1. Little interest or pleasure in doing things: not at all 2. Feeling down, depressed, or hopeless: not at all 3. Trouble falling or staying asleep, or sleeping too much: not at all 4. Feeling tired or having little energy: not at all 5. Poor appetite or overeating: not at all 6. Feeling bad about yourself - or that you are a failure or have let yourself or your family down: not at all 7. Trouble concentrating on things, such as reading the newspaper or watching television: not at all 8. Moving or speaking so slowly that other people could have noticed. Or the opposite - being so fidgety or restless that you have been moving around a lot more than usual: not at all 9. Thoughts that you would be better off or of hurting yourself in some way: not at all Total score: 0 Depression Screening Interpretation: Negative Depression Screening Done: Yes 95394 - PHQ-9 Billing: Yes Source: Developed by Drs. Suman Dominguez, Isaura Reyes, Huan Carrillo and colleagues, with an educational stefania from [employer]. Thrive Questionnaire Date Thrive assessed: 09/19/24 I am a: Patient What is your living situation today?: I have a steady place to live Within the past 12 months, did the food you bought not last and you didn't have the money to get more?: Never true Within the past 12 months, did you worry whether your food would run out before you got money to buy more?: Never true Do you have trouble paying for medicines?: No Do you have trouble getting transportation to medical appointments?: No Do you have trouble paying your heating and electricity bill?: No Do you have trouble taking care of your child, family member or friend?: No Do you have trouble with day-to-day activities such as bathing, preparing meals, shopping, managing finances, etc.?: No Are you currently unemployed and looking for a job?: No Are you interested in more education?: No Please select the resources that you would like help with: None Currently or been in a relationship where the following occur: No concerns reported THRIVE Score: 0 AUDIT C Alcohol Use Questionnaire (AUDIT-C) 1. How often do you have a drink containing alcohol?: Never Total Score: 0 Score Reviewed/Action Taken: No STEVEN-7 AMB Questionnaire STEVEN-7 Date STEVEN - 7 assessed: 09/21/24 Feeling nervous, anxious, or on edge: 1 = Several days Not being able to stop or control worryin = Not at all Worrying too much about different things: 1 = Several days Trouble relaxin = Several days Being so restless that it is hard to sit still: 1 = Several days Becoming easily annoyed or irritable: 1 = Several days Feeling afraid as if something awful might happen: 0 = Not at all Total STEVEN-7 score (0-4 normal; 5-9 mild; 10-14 moderate; 15-21 severe): 5 Source: Developed by Drs. Suman Dominguez, Isaura Reyes, Huan Carrillo and colleagues, with an educational stefania from [employer]. STEVEN-7 Assessment Billing STEVEN-7 Assessment Tool: STEVEN-7 Assessment 16453 Review of Systems Const All systems reviewed & are unremarkable except as noted in HPI and below Card Reports chest pain at rest, Reports chest pain with activity, Denies edema, Denies irregular heart rhythm, Denies claudication, Denies dyspnea, Denies dyspnea on exertion, Denies orthopnea, Denies paroxysmal nocturnal dyspnea and Denies slow heart rate Resp Denies cough, Denies dyspnea and Denies dyspnea on exertion Musc Denies atrophy, Denies deformity and Denies limited range of motion Skin/Breast Denies bleeding lesions, Denies changing lesions and Denies rash Physical exam (Primary Care) Vital Signs: Last Vital Signs BP 110/72 09/21/24 08:32 BMI result Body Mass Index 21.4 Tobacco/Smoking Status: Tobacco use Status Tobacco use date assessed 09/21/24 09/21/24 08:38 Patient Tobacco Use Status Former Tobacco user 09/21/24 08:38 Tobacco use type Cigarette 09/21/24 08:38 e-Cigarette/Vaping Use Never Used 09/21/24 08:38 PHQ-9: PHQ-9 Score PHQ-9: Total score 0 09/21/24 08:51 Depression Screening Interpretation: Negative Thrive Assessment: Date of Thrive Assessment Date Thrive assessed 09/19/24 09/21/24 08:38 Currently or been in a relationship where the following occur: No concerns reported HENID Head: Yes normal to inspection, Yes normocephalic and Yes atraumatic Ears: external ears normal Eyes General: appearance normal, both eyes and all related structures Eyelids: Yes eyelids normal Conjunctivae: conjunctivae normal Neck Neck: Yes normal visual inspection and Yes supple Resp Effort & Inspection: normal respiratory effort Auscultation: clear to auscultation bilaterally Cardio Jugular venous distension: no JVD Rate: regular rate Rhythm: regular rhythm Heart sounds: S1 normal heart sound present and S2 normal heart sound present GI Inspection: Yes normal to inspection Palpation (GI): Soft to palpation and nontender Auscultation: normal bowel sounds Skin General skin exam: no rashes or lesions noted Neuro General: no focal motor deficits Extrem General: Yes full ROM Psych Appearance: grossly normal Immunizations Boostrix Tdap 2.5 Lf unit-8 mcg-5 Lf/0.5 mL intramuscular syringe Performing Provider: Oma Diggs MD [facility] Administered by: OMA Ladd on 09/21/24 09:10 Dose Route Admin Location Dispensed Lot Number Expiration Date NDC Air And Water Tester 0.5 mL IM Left Deltoid 0.5 mL [id number] 12/17/26 [id number] [employer] VIS Given Date VIS Provided VIS Publication Date 09/21/24 Single Vaccine 21 Eligibility Eligibility Date Funding Source Not [facility] Eligible 09/21/24 Private Coding Level of Care Code Est Pt Level 3 (14499) Est Pt Prev Care 40-64y(22775) Diagnoses Physical exam Z00.00 Chest pain R07.9 Additional Codes PHQ-9 - 91294 - PHQ-9 Billing: Yes ([id number]) STEVEN-7 Assessment Billing - STEVEN-7 Assessment Tool: STEVEN-7 Assessment 32057 ([id number]) Time Spent (min) 35 Assessment & Plan Assessment & Plan (1) Physical exam: Code(s): Z00.00 - Encounter for general adult medical examination without abnormal findings Category: Medical (2) Chest pain: Code(s): R07.9 - Chest pain, unspecified Category: Medical Plan In the management of osteoporosis, continued Prolia injections every six months are recommended, considering past side effects with Fosamax. To address symptoms of chest pain and shortness of breath, especially those possibly linked to menopause, an EKG has been ordered to evaluate potential cardiac causes. For anxiety and stress potentially impacting gastrointestinal comfort, switching to edible forms of cannabis is recommended. A thyroid function test and vitamin D level check will also be conducted to identify any underlying issues exacerbating her symptoms. Referral processes for changing her OBGYN provider are underway, pending appointment confirmation with [facility]'s OBGYN team. Regular health screenings, including Tdap update and discussions on vitamin supplements for menopause management, were prioritized. Patient was informed and verbally consented to the use of an ambient scribe for clinic note documentation during this visit. I discussed with the patient the management of her osteoporosis with ongoing Prolia injections due to prior Fosamax-induced esophagitis. We had a detailed conversation about the intermittent chest pain and shortness of breath, including an EKG to rule out cardiac issues, though causal links to menopause or anxiety were considered. The patient was informed about the option of [id number] vitamins targeting menopausal symptoms, available near [facility]. Continuation of alprasolam for anxiety symptoms was discussed, including the potential advantage of transitioning from inhaled cannabis use to edibles as a safer alternative. I reiterated the necessity of an updated OBGYN provider for her outstanding gynecological exams and the timely execution of necessary health maintenance interventions like upcoming DEXA and additional bloodwork for a comprehensive evaluation. Orders: Orders ECG 12 lead EKG Today R07.9 - Chest pain, unspecified Vitamin D 25-OH Total Today E55.9 - Vitamin D deficiency, unspecified Comprehensive [place]. Panel Fast Today Z00.00 - Encounter for general adult medical examination without abnormal findings Lipid Panel Today Z00.00 - Encounter for general adult medical examination without abnormal findings Thyroid Stimulating Hormone Today R07.9 - Chest pain, unspecified Patient Instructions: - Receive Tdap vaccine today; repeat in 10 years. - Schedule for upcoming DEXA scan in 2025 and colonoscopy. - Obtain blood tests for cholesterol, liver, kidneys, thyroid, and vitamin D levels. - Continue Prolia injections every six months for osteoporosis. - Change cannabis consumption to oral forms to reduce lung irritation. - Follow up with the new OBGYN for a Pap smear and other exams. - Consider purchasing vitamins aimed at menopause symptom relief from the pharmacy. - Monitor and report any worsening chest pain or consistent palpitations. - Adhere to anxiety management strategies discussed, including medication and alternative approaches.
[2024-09-21 08:32] VITALS: BP 110/72; BMI 21.4
== END 2024-09-21 09:10 | disposition home or self-care (01) ==
LOC: HO.HMCH 08:24
PROVIDERS: PCP Internal Medicine; Visit Provider Internal Medicine
DX: Z00.00 Encounter for general adult medical examination without abnormal findings (principal); R07.9 Chest pain, unspecified; Z23 Encounter for immunization

== ENCOUNTER → 2024-09-21 08:23 | Outpatient (REF) | payer OTHER, SELFPAY ==
--- NOTE | 2024-09-21 09:24 | ECG_ITS ---
Test Reason : cp Blood Pressure : */* mmHG Vent. Rate : 50 BPM Atrial Rate : 50 BPM P-R Int : 148 ms QRS Dur : 96 ms QT Int : 446 ms P-R-T Axes : 42 47 35 degrees QTcB Int : 406 ms Sinus bradycardia Otherwise normal ECG When compared with ECG of 10-Apr-2016 11:15, No significant change was found Referred By: Oma Diggs Electronically Signed By: Alireza Dorsey
== END ==
LOC: HO.CARD 08:23
PROVIDERS: PCP Internal Medicine; Visit Provider Internal Medicine
DX: Z00.00 Encounter for general adult medical examination without abnormal findings (principal); R07.9 Chest pain, unspecified
CPT/HCPCS: 93005

== ENCOUNTER → 2024-09-21 09:24 | Outpatient (BNV) | payer OTHER, SELFPAY | PROVIDERS: PCP Internal Medicine; Visit Provider Internal Medicine Cardiovascular Disease | DX: R00.1 Bradycardia, unspecified (principal) | CPT/HCPCS: 93010 ==

== ENCOUNTER 2024-09-22 06:35 | Outpatient (REF) | payer OTHER, SELFPAY ==
[2024-09-22 07:57] LABS: Alanine Aminotransferase 28 U/L (0-31); Alkaline Phosphatase 54 U/L (39-117); Anion Gap 9 (12-20); Aspartate Amino Transferase 30 U/L (5-31); Bilirubin Total 0.3 mg/dL (0.0-1.0); Blood Urea Nitrogen 17 mg/dL (9-16); Calcium 8.5 mg/dL (8.4-10.2); Carbon Dioxide 24 mmol/L (22-29); Chloride 111 mmol/L (96-108); Cholesterol 174 mg/dL (<200); Estimated Glomerular Filt Rate > 60; Glucose Fasting 78 mg/dL (60-99); HDL Cholesterol 46 mg/dL (>40); LDL Cholesterol Calculated 107 mg/dL (<100); Potassium 4.1 mmol/L (3.3-5.1); Sodium 140 mmol/L (135-145); Total Protein 6.7 g/dL (6.5-8.0); Triglycerides 109 mg/dL (<150)
[2024-09-22 08:32] LABS: Thyroid Stimulating Hormone 1.81 uIU/mL (0.32-4.0); Vitamin D 25-OH Total 64.9 ng/mL (>30)
== END 2024-09-22 06:36 | disposition home or self-care (01) ==
LOC: HO.LAB 06:35
PROVIDERS: PCP Internal Medicine; Visit Provider Internal Medicine
DX: Z00.00 Encounter for general adult medical examination without abnormal findings (principal); E55.9 Vitamin D deficiency, unspecified; R07.9 Chest pain, unspecified
CPT/HCPCS: 36415; 80053; 80061; 82306; 84443

== ENCOUNTER 2024-10-04 17:07 | Outpatient (AMB) | payer OTHER, SELFPAY ==
--- NOTE | 2024-10-04 17:15 | MHC.PC.OV ---
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 Required: No Accompanied by: Self / Same As Patient Allergies alendronate sodium Adverse Reaction (Intermediate, Verified 10/04/24 17:30) med induced esophagitis Medication List - Last Reconciled 10/04/24 by Oma Diggs MD albuterol sulfate 90 mcg/actuation 2 inhalations inhalation Q6H PRN alprazolam 0.5 mg PO DAILY PRN 30 days denosumab (Prolia) 60 mg subcut [id number] meclizine 25 mg PO TID PRN 30 days polyethylene glycol 3350 (Miralax) 17 grams PO DAILY tizanidine 4 mg PO BEDTIME PRN 30 days tramadol 50 mg PO Q12H PRN 30 days Tobacco use date assessed: 09/21/24 Dental Screening Dental Screen Date: 09/21/24 HPI HPI Comments History of Present Illness Details Patient complains of nasal congestion, sore throat and some dry cough that started about 4 days ago. She has sick contacts but has been negative for COVID. Will order COVID, flu and RSV test. This is a tele health visit by phone. [facility] Medical History (Updated 10/04/24 @ 17:54 by Oma Diggs MD) GERD (gastroesophageal reflux disease) Esophagitis Hypovitaminosis D Pelvic pain Adnexal fullness Vaginal discharge Menopausal vaginal dryness Toe ulcer Physical exam Mild major depression, single episode Bunion, left Right knee pain COVID-19 Snoring Leukopenia Unintentional weight loss Vertigo Back pain Surgical History Hx of colonoscopy History of esophagogastroduodenoscopy (EGD) History of tonsillectomy History of bunionectomy History of tubal ligation History of inguinal hernia repair Family History Father Lung cancer Mother COPD (chronic obstructive pulmonary disease) Stroke Lung cancer Paternal Aunt Breast cancer Daughter In good health Family/Other Substance use disorder Mental health disorder Social History Housing: House Alcohol intake: former Patient Tobacco Use Status: Former Tobacco user Tobacco use type: Cigarette e-Cigarette/Vaping Use: Never Used Second Hand Smoke Exposure: No service: Yes Current occupational status: employed 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 Suman Dominguez, Isaura Reyes, Huan Carrillo and colleagues, with an educational stefania from [employer]. Review of Systems Const All systems reviewed & are unremarkable except as noted in HPI and below Card Denies chest pain at rest, Denies chest pain with activity, Denies edema, Denies irregular heart rhythm, Denies claudication, Denies dyspnea, Denies dyspnea on exertion, Denies orthopnea, Denies paroxysmal nocturnal dyspnea and Denies slow heart rate Resp Denies cough, Denies dyspnea and Denies dyspnea on exertion GI Denies abdominal pain, Denies change in bowel habits, Denies excessive flatus, Denies nausea and Denies vomiting Denies urinary incontinence, Denies urinary hesitancy and Denies urinary urgency Musc Denies abnormal gait, Denies atrophy, Denies deformity and Denies limited range of motion Skin/Breast Denies bleeding lesions, Denies changing lesions and Denies rash Neuro Denies abnormal gait, Denies behavioral changes and Denies lack of coordination Psych Denies behavioral changes Endo Denies cold intolerance Brandon/Lymph Denies easy bleeding and Denies easy bruising Aller/Immun Denies urticaria Physical exam (Primary Care) Tobacco/Smoking Status: Tobacco use Status Tobacco use date assessed 09/21/24 10/04/24 17:16 Patient Tobacco Use Status Former Tobacco user 10/04/24 17:16 Tobacco use type Cigarette 10/04/24 17:16 e-Cigarette/Vaping Use Never Used 10/04/24 17:16 Thrive Assessment: Date of Thrive Assessment Date Thrive assessed 09/19/24 10/04/24 17:16 HENMT Head: Yes normal to inspection, Yes normocephalic and Yes atraumatic Ears: external ears normal General nose exam: Normal external nose present and No nasal discharge present Face and sinus: Yes sinuses nontender Mouth: lip normal Resp Effort & Inspection: normal respiratory effort Auscultation: clear to auscultation bilaterally Cardio Jugular venous distension: no JVD Rate: regular rate Rhythm: regular rhythm Heart sounds: S1 normal heart sound present and S2 normal heart sound present Extrem General: Yes full ROM Telehealth Telehealth Telehealth Platform: Telephone Location of provider rendering services: practice address Location of patient: address on file Patient Identification confirmed using: Name, : Yes Telehealth method: voice only Patient verbally consented to treatment: Yes Patient verbally consented to billing insurance company: Yes Patient informed of any privacy concerns related to visit: Yes Minutes spent on Phone/Video with Pt.: 15 Coding Level of Care Code Tele Est Pt Level 3 (40455) Complex EM visit Add On G2211 Diagnoses URI (upper respiratory infection) J06.9 Time Spent (min) 15 Assessment & Plan Assessment & Plan (1) URI (upper respiratory infection): Code(s): J06.9 - Acute upper respiratory infection, unspecified Category: Medical Plan: COVID, flu and RSV test ordered.
--- OUTSIDE RECORDS SUMMARY | 2024-10-04 18:59 | XMS_ITS | Patient Health Record ---
Author Organization [facility] Address [address] [place] [address] Care Team Providers Care Armhole Raiser Lockstitch Name Role Phone Oma Mcleod Primary Care Provider Unavailab le Allergies No Known Allergies Reason For Referral No Information Medications Medication SIG (Take, Route, Frequency, Duration) Notes Start Date End Date Status Famotidine 20 MG 1 tablet at bedtime as needed Orally Once a day Not-Taking Linezolid 600 MG 1 tablet Orally ever y 12 hrs Not-Taking levoFLOXacin 750 MG 1 tablet Orally Once a day Not-Taking Meloxicam 15 MG 1 tablet Orally Once a day Not-Taking Sulfamethoxazole-TMP DS Not-Taking Gabapentin 100 MG 1 capsule Orally Onc e a day Not-Taking Doxycycline Monohydrate 100 MG 1 capsule Orally Once a day Not-Taking tiZANidine HCl 4 MG 1 tablet as needed Orally Three times a day Active Fluconazole 100 MG 1 tablet Orally Not-Taking Problems Problem Type SNOMED Code ICD Code Onset Dates Problem Status W/U Status Risk Notes Problem [id number] Arthritis of midfoot (M19.079) Active confirmed Problem 130174717 Hallux valgus of left foot (M20.12) Active confirmed Plan Of Treatment Pending Test Test Name Order Date CBC With Differential/Platelet 2 OMA w/Reflex if Positive 01/13/2022 Basic Metabolic Panel (8) 01/13/2022 ESR 01/13/2022 X ray : Foot, left 3v 01/13/2022 Insurance Providers Payer Name Payer Address Payer Phone Subscriber Number Group Number Insured Name Patient Relationship to Insured Coverage Start Date Coverage End Date [facility] [address] [place] [address] [id number] Lindsey Heath Self - patient is the insured Medical (General) History Medical History History ICD Code Vertigo Mild Major Depression Leukopenia chronic lower back pain Surgical History Surgery Date(Month/Year) Bunionectomy right and left age 14 Inguinal Hernia Repair Tonsillectomy Tubal Ligation
--- OUTSIDE RECORDS SUMMARY | 2024-10-04 18:59 | XMS_ITS | Patient Health Record ---
Author [facility] Address [address] [place] [address] Care Team Providers Care Internet Site Designer Name Role Phone David AL, Oma Primary Care Provider Unavail Debby Foreman Unavailable [phone] Allergies No Known Allergies Reason For Referral No Information Medications Medication SIG (Take, Route, Frequency, Duration) Notes Start Date End Date Status Linezolid 600 MG 1 tablet Orally ever y 12 hrs for 10 day(s) Active Levaquin 750 MG 1 tablet Orally Once a day for 10 day(s) Active tiZANidine HCl 4 MG 1 tablet as needed Orally Three times a day Unknown Sulfamethoxazole-Trimethopr im 800-160 MG 1 tablet Orally Twice a day for 10 day(s) Unknown levoFLOXacin 750 MG 1 tablet Orally Once a day for 10 day(s) Unknown Meloxicam 15 MG 1 tablet Orally Once a day for 30 day(s) Unknown Doxycycline Monohydrate 100 MG 1 capsule Orally Once a day for 10 day(s) Unknown Gabapentin 100 MG 1 capsule Orally Onc e a day for 30 day(s) Unknown Social History Tobacco Use: Social History Observation Description Date Details (start date - stop date) Former Smoker NA - NA Tobacco Use/Smoking Question Answer Notes Are you a: former smoker Additional Findings: Tobacco Non-User Current no n-smoker Alcohol Screen Question Answer Notes Did you have a drink containing alcohol in the p ast year? No Points 0 Interpretation Negative Tobacco use other than smoking: Question Answer Notes Are you an other tobacco user? No Problems Problem Type SNOMED Code ICD Code Onset Dates Problem Status W/U Status Risk Notes Problem [id number] Hallux valgus (acquired), left foot (M20.12) Active confirmed Problem [id number] Osteomyelitis o f foot, left, acute (M86.172) Active confirmed Plan Of Treatment Pending Test Test Name Order Date X ray : Foot, left 3V 11/13/2021 Insurance Providers Payer Name Payer Address Payer Phone Subscriber Number Group Number Insured Name Patient Relationship to Insured Coverage Start Date Coverage End Date [facility] [address] [place] [address] [id number] Daron Heath Spouse - patient is the spouse of the insured Medical (General) History Medical History History ICD Code Arthritis Measles Chicken pox Surgical History Surgery Date(Month/Year) B/L bunionectomy 1979 Left Inguinal hernia repair x2 tonsillectomy tubal ligation
== END 2024-10-04 17:53 | disposition home or self-care (01) ==
LOC: HO.HMCH 17:07
PROVIDERS: PCP Internal Medicine; Visit Provider Internal Medicine
DX: J06.9 Acute upper respiratory infection, unspecified (principal)

== ENCOUNTER → 2024-10-04 17:07 | Outpatient (BNVA) | payer OTHER, SELFPAY | PROVIDERS: PCP Internal Medicine; Visit Provider Internal Medicine ==

== ENCOUNTER 2024-10-05 11:17 | Outpatient (REF) | payer OTHER, SELFPAY ==
[2024-10-05 12:30] LABS: Influenza A PCR NEGATIVE (Negative); Influenza B PCR NEGATIVE (Negative); Resp Syncy Virus RNA Qual PCR NEGATIVE (Negative); SARS COV2 PCR INHOUSE NEGATIVE (Negative)
--- OUTSIDE RECORDS SUMMARY | 2024-10-05 13:47 | XMS_ITS | Patient Health Record ---
Author Organization [facility] Address [address] [place] [address] Care Team Providers Care Wood Caulker Name Role Phone Oma Mcleod Primary Care [...] Problem Status W/U Status Risk Notes Problem 172477340 Arthritis of midfoot (M19.079) Active confirmed Problem 973347106 Hallux valgus of left foot (M20.12) Active [...] Insured Coverage Start Date Coverage End Date [facility] [address] [place] [address] [id number] Lindsey Heath Self - patient is the insured Medical (General) History Medical History History ICD Code Vertigo Mild Major Depression Leukopenia chronic lower back pain Surgical History Surgery Date(Month/Year) Bunionectomy right and left age 14 Inguinal Hernia Repair Tonsillectomy Tubal Ligation
--- OUTSIDE RECORDS SUMMARY | 2024-10-05 13:47 | XMS_ITS | Patient Health Record ---
Author Organization [facility] Address [address] [place] [address] Care Team Providers Care Director Marketing Name Role Phone David AL, Oma Primary Care Provider Unavail Debby Foreman Unavailable [phone] Allergies No Known Allergies Reason For Referral [...] Problem Status W/U Status Risk Notes Problem [id number] Hallux valgus (acquired), left foot (M20.12) Active confirmed Problem [id number] Osteomyelitis o f foot, left, acute (M86.172) Active confirmed Plan Of Treatment Pending Test Test Name Order Date X ray : Foot, left 3V 11/13/2021 Insurance Providers Payer Name Payer Address Payer Phone Subscriber Number Group Number Insured Name Patient Relationship to Insured Coverage Start Date Coverage End Date [facility] [address] [place] [address] [id number] Daron Heath Spouse - patient is the spouse of the insured Medical (General) History Medical History History ICD Code Arthritis Measles Chicken pox Surgical History Surgery Date(Month/Year) B/L bunionectomy 1979 Left Inguinal hernia repair x2 tonsillectomy tubal ligation
== END 2024-10-05 11:18 | disposition home or self-care (01) ==
LOC: HO.LAB 11:17
PROVIDERS: PCP Internal Medicine; Visit Provider Internal Medicine
DX: R09.89 Other specified symptoms and signs involving the circulatory and respiratory systems (principal)
CPT/HCPCS: 0241U

== ENCOUNTER → 2024-11-03 14:30 | Outpatient (BNV) | payer OTHER, SELFPAY | PROVIDERS: PCP Internal Medicine; Visit Provider Internal Medicine | DX: Z12.31 Encounter for screening mammogram for malignant neoplasm of breast (principal) | CPT/HCPCS: 77063; 77067 ==

== ENCOUNTER 2024-11-03 14:31 | Outpatient (REF) | payer OTHER, SELFPAY ==
--- OUTSIDE RECORDS SUMMARY | 2024-11-03 16:36 | XMS_ITS | Patient Health Record ---
Author [facility] Address [address] [place] [address] Care Team Providers Care Washroom Operator Name Role Phone David AL, Oma Primary Care Provider Unavail Debby Foreman Unavailable [phone] Allergies No Known Allergies Reason For Referral [...] Problem Status W/U Status Risk Notes Problem [id number] Hallux valgus (acquired), left foot (M20.12) Active confirmed Problem 3558366521187358 Osteomyelitis o f foot, left, acute (M86.172) Active confirmed Plan Of Treatment Pending Test Test Name Order Date X ray : Foot, left 3V 11/13/2021 Insurance Providers Payer Name Payer Address Payer Phone Subscriber Number Group Number Insured Name Patient Relationship to Insured Coverage Start Date Coverage End Date [facility] [address] [place] [address] [id number] Daron Heath Spouse - patient is the spouse of the insured Medical (General) History Medical History History ICD Code Arthritis Measles Chicken pox Surgical History Surgery Date(Month/Year) B/L bunionectomy 1979 Left Inguinal hernia repair x2 tonsillectomy tubal ligation
--- OUTSIDE RECORDS SUMMARY | 2024-11-03 16:36 | XMS_ITS | Patient Health Record ---
Author Organization [facility] Address [address] [place] [address] Care Team Providers Care Picker Packer Name Role Phone Oma Mcleod Primary Care [...] Problem Status W/U Status Risk Notes Problem 410186673 Arthritis of midfoot (M19.079) Active confirmed Problem 373514988 Hallux valgus of left foot (M20.12) Active [...] Insured Coverage Start Date Coverage End Date [facility] [address] [place] [address] [phone] [id number] Lindsey Heath Self - patient is the insured Medical (General) History Medical History History ICD Code Vertigo Mild Major Depression Leukopenia chronic lower back pain Surgical History Surgery Date(Month/Year) Bunionectomy right and left age 14 Inguinal Hernia Repair Tonsillectomy Tubal Ligation
== END 2024-11-03 14:32 | disposition home or self-care (01) ==
LOC: HO.MAMMO 14:31
PROVIDERS: PCP Internal Medicine; Visit Provider Internal Medicine
DX: Z12.31 Encounter for screening mammogram for malignant neoplasm of breast (principal)
CPT/HCPCS: 77063; 77067

== ENCOUNTER 2025-01-09 09:22 | Outpatient (REF) | payer OTHER, SELFPAY ==
--- OUTSIDE RECORDS SUMMARY | 2025-01-09 09:53 | XMS_ITS | Patient Health Record ---
Author Organization [facility] Address [address] [place] [address] Care Team Providers Care Export Packer Name Role Phone Oma Mcleod Primary [...] Problem Status W/U Status Risk Notes Problem 180683405 Arthritis of midfoot (M19.079) Active confirmed Problem 375048086 Hallux valgus of left foot (M20.12) Active [...] Insured Coverage Start Date Coverage End Date [facility] [address] [place] [address] [phone] [id number] Lindsey Heath Self - patient is the insured Medical (General) History Medical History History ICD Code Vertigo Mild Major Depression Leukopenia chronic lower back pain Surgical History Surgery Date(Month/Year) Bunionectomy right and left age 14 Inguinal Hernia Repair Tonsillectomy Tubal Ligation
--- OUTSIDE RECORDS SUMMARY | 2025-01-09 09:53 | XMS_ITS | Patient Health Record ---
Author Organization [facility] Address [address] [place] [address] Care Team Providers Care Automobile Body Repair Chief Name Role Phone David AL, Oma Primary Care Provider Unavail marysol Debby Diehl Unavailable [phone] Allergies No Known Allergies Reason For Referral No Information Medications Medication SIG (Take, Route, Frequency, Duration) Notes Start Date End Date Status Linezolid 600 MG 1 tablet Orally ever y 12 hrs; Duration: 10 day(s) Active Levaquin 750 MG 1 tablet Orally Once a day; Duration: 10 day(s) Active tiZANidine HCl 4 MG 1 tablet as needed Orally Three times a day Unknown Sulfamethoxazole-Trimethopr im 800-160 MG 1 tablet Orally Twice a day; Duration: 10 day(s) Unknown levoFLOXacin 750 MG 1 tablet Orally Once a day; Duration: 10 day(s) Unknown Meloxicam 15 MG 1 tablet Orally Once a day; Duration: 30 day(s) Unknown Doxycycline Monohydrate 100 MG 1 capsule Orally Once a day; Duration: 10 day(s) Unknown Gabapentin 100 MG 1 capsule Orally Onc e a day; Duration: 30 day(s) Unknown Social History Tobacco Use: [...] Problem Status W/U Status Risk Notes Problem Acquired hallux valgus (73650495) Hallux valgus (acquired), left foot (M20.12) Active confirmed Problem Acute osteomyelitis of ankle and/or foot (297247869) Osteomyelitis of foot, left, acute (M86.172) Active confirmed Plan Of Treatment Pending Test Test Name Order Date X ray : Foot, left 3V 11/13/2021 Insurance Providers Payer Name Payer Address Payer Phone Subscriber Number Group Number Insured Name Patient Relationship to Insured Coverage Start Date Coverage End Date [facility] [address] [place] [address] [id number] Daron Heath Spouse - patient is the spouse of the insured Medical (General) History Medical History History ICD Code Arthritis Measles Chicken pox Surgical History Surgery Date(Month/Year) B/L bunionectomy 1979 Left Inguinal hernia repair x2 tonsillectomy tubal ligation
[2025-01-09 12:32] LABS: Anion Gap 12 (12-20)
[2025-01-09 12:36] LABS: Alanine Aminotransferase 16 U/L (0-31); Albumin Level 4.4 g/dL (3.5-5.0); Alkaline Phosphatase 46 U/L (39-117); Aspartate Amino Transferase 22 U/L (5-31); Blood Urea Nitrogen 12 mg/dL (9-16); Calcium 8.8 mg/dL (8.4-10.2); Carbon Dioxide 27 mmol/L (22-29); Chloride 108 mmol/L (96-108); Estimated Glomerular Filt Rate > 60; Potassium 4.5 mmol/L (3.3-5.1); Sodium 142 mmol/L (135-145); Total Protein 6.4 g/dL (6.5-8.0)
== END 2025-01-09 09:23 | disposition home or self-care (01) ==
LOC: HO.LAB 09:22
PROVIDERS: PCP Internal Medicine; Visit Provider Student in an Organized Health Care Education/Training Program
DX: M81.0 Age-related osteoporosis without current pathological fracture (principal); E55.9 Vitamin D deficiency, unspecified
CPT/HCPCS: 36415; 80053; 82306

== ENCOUNTER 2025-01-10 10:49 | Outpatient (AMB) | payer OTHER, SELFPAY ==
--- NOTE | 2025-01-10 11:01 | AM.OFFVISNUR ---
Intake Visit Reasons: osteoporosis/prolia injection Allergies alendronate sodium Adverse Reaction (Intermediate, Verified 10/04/24 17:30) med induced esophagitis Office Meds Prolia 60 mg/mL subcutaneous syringe Performing Provider: Mary Lou Khoury MD Performing Location: [facility] Endocrinology Administered by: Celsa Morris RN on 01/10/25 11:01 Dose Route Admin Location Dispensed Lot Number Expiration Date [employer] 60 mg subcut left upper arm 1 mL Total Dispensed Waste 1 mL 0 % Comments: Patient tolerated injection well. Denies any adverse reactions to previous injections. Assessment & Plan Assessment & Plan Orders: Orders AMB Denosumab Injection Practice Supplied Today M81.0 - Age-related osteoporosis without current pathological fracture Coding
--- OUTSIDE RECORDS SUMMARY | 2025-01-10 11:53 | XMS_ITS | Patient Health Record ---
Author Organization [facility] Address [address] [place] [address] Care Team Providers Care [place]belt Name Role Phone Oma Mcleod Primary Care [...] Problem Status W/U Status Risk Notes Problem 677081004 Arthritis of midfoot (M19.079) Active confirmed Problem 684150831 Hallux valgus of left foot (M20.12) Active [...] Insured Coverage Start Date Coverage End Date [facility] [address] [place] [address] [phone] [id number] Lindsey Heath Self - patient is the insured Medical (General) History Medical History History ICD Code Vertigo Mild Major Depression Leukopenia chronic lower back pain Surgical History Surgery Date(Month/Year) Bunionectomy right and left age 14 Inguinal Hernia Repair Tonsillectomy Tubal Ligation
--- OUTSIDE RECORDS SUMMARY | 2025-01-10 11:53 | XMS_ITS | Patient Health Record ---
Author Organization [facility] Address [address] [place] [address] Care Team Providers Care Medical Imaging Technologist Name Role Phone David AL, Oma Primary Care Provider Unavail marysol Debby Diehl Unavailable [phone] Allergies No Known Allergies Reason For Referral [...] Status Risk Notes Problem Acquired hallux valgus (11387341) Hallux valgus (acquired), left foot (M20.12) Active confirmed Problem Acute osteomyelitis of ankle and/or foot (849128558) Osteomyelitis of foot, left, acute (M86.172) Active confirmed Plan Of Treatment Pending Test Test Name Order Date X ray : Foot, left 3V 11/13/2021 Insurance Providers Payer Name Payer Address Payer Phone Subscriber Number Group Number Insured Name Patient Relationship to Insured Coverage Start Date Coverage End Date [facility] [address] [place] [address] [id number] Daron Heath Spouse - patient is the spouse of the insured Medical (General) History Medical History History ICD Code Arthritis Measles Chicken pox Surgical History Surgery Date(Month/Year) B/L bunionectomy 1979 Left Inguinal hernia repair x2 tonsillectomy tubal ligation
== END 2025-01-10 10:59 | disposition home or self-care (01) ==
PROVIDERS: PCP Internal Medicine; Visit Provider Student in an Organized Health Care Education/Training Program
DX: M81.0 Age-related osteoporosis without current pathological fracture (principal)

== ENCOUNTER → 2025-01-10 10:49 | Outpatient (BNVA) | payer OTHER, SELFPAY | PROVIDERS: PCP Internal Medicine; Visit Provider Student in an Organized Health Care Education/Training Program | DX: M81.0 Age-related osteoporosis without current pathological fracture (principal); Z79.899 Other long term (current) drug therapy | CPT/HCPCS: 96372; J0897 ==

== ENCOUNTER 2025-02-21 09:16 | Outpatient (AMB) | payer OTHER, SELFPAY ==
--- NOTE | 2025-02-21 09:24 | A.OFFVIS_ITS ---
Vital Signs 02/21/25 09:25 Height 5 ft 3 in Weight 119 lb BMI 21.1 BP 116/64 Blood Pressure Location Lt brachial Position Sitting Pulse 64 Pulse Source Pulse Oximeter Pulse Oximetry (%) 99 Oxygen Delivery Method Room Air Intake Visit Reasons: Osteoporosis Intake Note: presents to office today for osteoporosis. Accompanied by: Self / Same As Patient Allergies alendronate sodium Adverse Reaction (Intermediate, Verified 02/21/25 09:24) med induced esophagitis HPI HPI Osteoporosis: Details: She was on fosamax and abx for foot osteomyelitis. She had GERD while on both treatments and could not tolerate continuing Fosamax. Sister has osteopenia. No history of hyperthyroidism or parathyroid disease. She has never been on long course of prednisone, antiepileptic drugs or anticoagulation. No fracture history. She takes vitamin-D 2000 IU daily. She does not drink milk. She may have a serving of yogurt. History of scoliosis during childhood managed at [facility] with physical therapy. [facility] Medical History GERD (gastroesophageal reflux disease) Esophagitis Hypovitaminosis D Pelvic pain Adnexal fullness Vaginal discharge Menopausal vaginal dryness Toe ulcer Physical exam Mild major depression, single episode Bunion, left Right knee pain COVID-19 Snoring Leukopenia Unintentional weight loss Vertigo Back pain Surgical History Hx of colonoscopy History of esophagogastroduodenoscopy (EGD) History of tonsillectomy History of bunionectomy History of tubal ligation History of inguinal hernia repair Family History Father Lung cancer Mother COPD (chronic obstructive pulmonary disease) Stroke Lung cancer Paternal Aunt Breast cancer Daughter In good health Family/Other Substance use disorder Mental health disorder Social History Housing: House Alcohol intake: former Patient Tobacco Use Status: Former Tobacco user Tobacco use type: Cigarette e-Cigarette/Vaping Use: Never Used Second Hand Smoke Exposure: No service: Yes Current occupational status: employed 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 Good respiratory effort Skin: No lesions seen MSK: No tender joints. Normal range of motion of upper extremities and lower extremities. Normal cervical range of motion. Normal lumbar flexion. She has slight scoliosis. No kyphosis. Results Reviewed Results Reviewed: Ordering Physician: Gena Russell Results: Date of Service: 11/27/23 Follow Up: Procedure(s): XR DEXA axial skeleton Accession Number(s): [id number] cc: Oma Mcleod MD; Gena Russell~ EXAMINATION: BONE DENSITOMETRY CLINICAL INDICATION: Age-related osteoporosis without current pathological fracture. COMPARISON: Baseline BD dated 10/23/2022. TECHNIQUE: Using a [employer] DXA System (software version: 13.1) manufactured by [employer], dual-energy x-ray absorptiometry was performed of the lumbar spine and left hip. The images are of good technical quality. Summary results are attached. FINDINGS: LEFT FEMUR, NECK: Current: BMD 0.673 g/cm2, Z-score -1.3, T-score -2.6, osteoporosis. Baseline: BMD 0.715 g/cm2. LEFT FEMUR, TOTAL: Current: BMD 0.774 g/cm2, Z-score -0.8, T-score -1.9, osteopenia, 2.0% increase from baseline (<5% change is not significant). Baseline: BMD 0.759 g/cm2. AP SPINE L1-L2 (excluding L3 and L4): The data of L1-L4 has been changed to exclude the L3 and L4 vertebral bodies, because degenerative sclerosis at these levels may cause overestimation of lumbar spine density. Current: BMD 0.687 g/cm2, Z-score -2.7, T-score -4.0, osteoporosis, 2.8% decrease from baseline (<5% change is not significant). Baseline: BMD 0.707 g/cm2. IDENTIFIED RISK FACTORS: Low calcium intake, menopause, osteoporosis. HISTORY OF FRACTURE: None listed. MEDICATIONS: Vitamin D. MM/XR DEXA axial skeleton IMPRESSION: 1. DIAGNOSIS: Osteoporosis based on the lowest T-score value of -4.0 in the lumbar spine applying World Health Organization criteria. Assessment & Plan Assessment & Plan (1) Osteoporosis: Comment: Severe osteoporosis with lowest T-score -4.0 lumbar spine,-2.6 left femoral neck, -1.9 left total hip. No history of fragility fracture. She is on vitamin-D supplement. She has had 3 Prolia injections with last injection January 2024. TSH and PTH normal. Risk factor: Family history with sister having osteopenia. We discussed optimal treatment of severe osteoporosis is with treatment with anabolic agents such as Evenity followed by anti resorptive agents such as Prolia or bisphosphonate, Reclast is indicated. Sequence of treatment matters as evidence based practice shows that bone density gains are most optimal when anabolic agent is given 1st then resorptive agent. Code(s): M81.0 - Age-related osteoporosis without current pathological fracture Category: Medical Qualifiers: Osteoporosis type: age-related Presence of current pathological fracture: without current pathological fracture Qualified Code(s): M81.0 - Age- related osteoporosis without current pathological fracture Plan: Plan to repeat bone density to assess benefit on Prolia MORENO Calcium and albumin ordered She has sufficient vitamin-D with vitamin D supplement 2000 IU daily, which she will continue Calcium carbonate 600 mg daily prescribed Information on calcium rich foods provided for patient. Can increase calcium tablet 2 b.i.d. if she is unable to incorporate calcium rich foods in diet at future visit Return to clinic in 3 months Orders: Orders XR DEXA axial skeleton Today M81.0 - Age-related osteoporosis without current pathological fracture Calcium Today M81.0 - Age-related osteoporosis without current pathological fracture Albumin Level Today M81.0 - Age-related osteoporosis without current pathological fracture XR DEXA appendicular skeleton Today M81.0 - Age-related osteoporosis without current pathological fracture Medications: New calcium carbonate 600 mg PO DAILY 90 tabs 4RF Coding Level of Care Code Est Pt Level 4 (25362) Complex EM visit Add On G2211 Diagnoses Age-related osteoporosis without current pathological fracture M81.0 Osteoporosis type: age-related Presence of current pathological fracture: without current pathological fracture
[2025-02-21 09:25] VITALS: BP 116/64; PULSE 64; O2SAT 99; BMI 21.1
--- OUTSIDE RECORDS SUMMARY | 2025-02-21 10:18 | XMS_ITS | Patient Health Record ---
Author Organization [facility] Address [address] [place] [address] Care Team Providers Care Statistical Secretary Name Role Phone David AL, Oma Primary Care Provider Unavail marysol Debby Diehl Unavailable [phone] Allergies No Known Allergies Reason For Referral [...] Status Risk Notes Problem Acquired hallux valgus (53106193) Hallux valgus (acquired), left foot (M20.12) Active confirmed Problem Acute osteomyelitis of ankle and/or foot (744743057) Osteomyelitis of foot, left, acute (M86.172) Active confirmed Plan Of Treatment Pending Test Test Name Order Date X ray : Foot, left 3V 11/13/2021 Insurance Providers Payer Name Payer Address Payer Phone Subscriber Number Group Number Insured Name Patient Relationship to Insured Coverage Start Date Coverage End Date [facility] [address] [place] [address] [id number] Daron Heath Spouse - patient is the spouse of the insured Medical (General) History Medical History History ICD Code Arthritis Measles Chicken pox Surgical History Surgery Date(Month/Year) B/L bunionectomy 1979 Left Inguinal hernia repair x2 tonsillectomy tubal ligation
--- OUTSIDE RECORDS SUMMARY | 2025-02-21 10:18 | XMS_ITS | Patient Health Record ---
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) Active confirmed Problem Hallux valgus of left foot (2170261828) Hallux valgus of left foot (M20.12) Active confirmed Plan Of Treatment Pending Test Test Name Order Date CBC With Differential/Platelet 2 DASH w/Reflex if Positive 01/13/2022 Basic Metabolic Panel (8) 01/13/2022 ESR 01/13/2022 X ray : Foot, left 3v 01/13/2022 Insurance Providers Payer Name Payer Address Payer Phone Subscriber Number Group Number Insured Name Patient Relationship to Insured Coverage Start Date Coverage End Date [facility] [address] [place] [phone] [id number] Lindsey Heath Self - patient is the insured Medical (General) History Medical History History ICD Code Vertigo Mild Major Depression Leukopenia chronic lower back pain Surgical History Surgery Date(Month/Year) Bunionectomy right and left age 14 Inguinal Hernia Repair Tonsillectomy Tubal Ligation
== END 2025-02-21 10:07 | disposition home or self-care (01) ==
LOC: HO.RHES 09:17
PROVIDERS: PCP Internal Medicine; Visit Provider Internal Medicine Rheumatology
DX: M81.0 Age-related osteoporosis without current pathological fracture (principal)
CPT/HCPCS: 99214; G2211

== ENCOUNTER → 2025-02-21 09:16 | Outpatient (BNVA) | payer OTHER, SELFPAY | PROVIDERS: PCP Internal Medicine; Visit Provider Internal Medicine Rheumatology | DX: M81.0 Age-related osteoporosis without current pathological fracture (principal) | CPT/HCPCS: 99212 ==

== ENCOUNTER 2025-03-30 15:45 | Outpatient (REF) | payer OTHER, SELFPAY ==
[2025-03-30 17:36] LABS: Albumin Level 4.3 g/dL (3.5-5.0); Calcium 8.9 mg/dL (8.4-10.2)
--- OUTSIDE RECORDS SUMMARY | 2025-03-30 19:46 | XMS_ITS | Patient Health Record ---
Author Organization [facility] Address [address] [facility] [place] [address] Care Team Providers Care National Expansion Recruiter Name Role Phone David AL, Oma Primary Care Provider Unavail marysol Debby Diehl Unavailable [phone] Allergies No Known Allergies Reason For Referral [...] Status Risk Notes Problem Acquired hallux valgus (44360799) Hallux valgus (acquired), left foot (M20.12) Active confirmed Problem Acute osteomyelitis of ankle and/or foot (768280823) Osteomyelitis of foot, left, acute (M86.172) Active confirmed Plan Of Treatment Pending Test Test Name Order Date X ray : Foot, left 3V 11/13/2021 Insurance Providers Payer Name Payer Address Payer Phone Subscriber Number Group Number Insured Name Patient Relationship to Insured Coverage Start Date Coverage End Date [facility] [address] [place] [address] [id number] Daron Heath Spouse - patient is the spouse of the insured Medical (General) History Medical History History ICD Code Arthritis Measles Chicken pox Surgical History Surgery Date(Month/Year) B/L bunionectomy 1979 Left Inguinal hernia repair x2 tonsillectomy tubal ligation
--- OUTSIDE RECORDS SUMMARY | 2025-03-30 19:46 | XMS_ITS | Patient Health Record ---
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
== END 2025-03-30 15:46 | disposition home or self-care (01) ==
LOC: HO.LAB 15:45
PROVIDERS: PCP Internal Medicine; Visit Provider Internal Medicine Rheumatology
DX: M81.0 Age-related osteoporosis without current pathological fracture (principal)
CPT/HCPCS: 36415; 82040; 82310

== ENCOUNTER 2025-04-07 13:18 | Outpatient (REF) | payer OTHER, SELFPAY ==
--- NOTE | ~2025-04-07 | MM_ITS ---
EXAMINATION: BONE DENSITOMETRY CLINICAL INDICATION: Age-related osteoporosis without current pathological fracture. COMPARISON: Previous exam October 2022 and November 2023 TECHNIQUE: Using a [employer] DXA System (software version: 13.1) manufactured by [employer], dual-energy x-ray absorptiometry was performed of the lumbar spine and left hip. The images are of good technical quality. Summary results are attached. FINDINGS: AP SPINE L1-L2 (excluding L3 and L4): The data of L1-L4 has been changed to exclude the L3 and L4 vertebral bodies, because degenerative sclerosis at these levels may cause overestimation of lumbar spine BMD 0.766 g/cm2, Z-score -1.8, T-score -3.3, 11.5% change from previous and 8.3% change from baseline. Osteoporosis. LEFT FEMUR, NECK: Current: BMD 0.727 g/cm2, Z-score -0.8, T-score -2.2. Osteopenia. 8% change from previous and 1.7% change from baseline. LEFT FEMUR, TOTAL: Current: BMD 0.809 g/cm2, Z-score -0.4, T-score -1.6, osteopenia, 4.5% change from previous and 6.6% change from baseline. LEFT FOREARM RADIUS 33%: BMD 0.653 g/cm2, Z-score -1.7, T-score -2.5, osteoporosis. No priors available. IDENTIFIED RISK FACTORS: Low calcium intake, menopause and osteoporosis HISTORY OF FRACTURE: None listed. MEDICATIONS: Calcium, Prolia MM/XR DEXA appendicular skeleton IMPRESSION: 1. DIAGNOSIS: Osteoporosis based on the lowest T-score value of -3.3 in the lumbar spine applying World Health Organization criteria. 2. Fracture risk is high. According to the guidelines, FRAX calculation should only be performed on patients in the osteopenia bone density category. Therefore, FRAX was not performed on this patient. 3. Treatment Recommendations: NOF guidelines recommend consideration for treatment in postmenopausal women and men age 50 and older presenting with the following: -A hip or vertebral (clinical or morphometric) fracture. -T-score less than or equal to -2.5 at the femoral neck or spine after appropriate evaluation to exclude secondary causes. -Low bone mass at the hip or spine and a 10-year fracture probability by FRAX of greater than or equal to 3% for hip fracture or greater than or equal to 20% for major osteoporotic fracture based on the [place] adapted WHO algorithm. FUTURE SCAN RECOMMENDATION: People with diagnosed cases of osteoporosis or at high risk for fracture should have regular bone mineral density tests. For patients eligible for Medicare, routine testing is allowed once every 2 years. The testing frequency can be increased to one year for patients who have rapidly progressing disease, those who are receiving or discontinuing medical therapy to restore bone mass, or have additional risk factors. Electronically signed by: Reba Davey MD 04/07/2025 02:07 PM [facility] ROSENBERG
--- OUTSIDE RECORDS SUMMARY | 2025-04-07 13:42 | XMS_ITS | Patient Health Record ---
Author Organization [facility] Address [address] [facility] [place] [address] Care Team Providers Care Belt Turner Name Role Phone David AL, Oma Primary Care Provider Unavail marysol Debby Diehl Unavailable [phone] Allergies No Known Allergies Reason For Referral [...] Status Risk Notes Problem Acquired hallux valgus (87184963) Hallux valgus (acquired), left foot (M20.12) Active confirmed Problem Acute osteomyelitis of ankle and/or foot (943552571) Osteomyelitis of foot, left, acute (M86.172) Active confirmed Plan Of Treatment Pending Test Test Name Order Date X ray : Foot, left 3V 11/13/2021 Insurance Providers Payer Name Payer Address Payer Phone Subscriber Number Group Number Insured Name Patient Relationship to Insured Coverage Start Date Coverage End Date [facility] [address] [place] [address] [id number] Daron Heath Spouse - patient is the spouse of the insured Medical (General) History Medical History History ICD Code Arthritis Measles Chicken pox Surgical History Surgery Date(Month/Year) B/L bunionectomy 1979 Left Inguinal hernia repair x2 tonsillectomy tubal ligation
--- OUTSIDE RECORDS SUMMARY | 2025-04-07 13:42 | XMS_ITS | Patient Health Record ---
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
== END 2025-04-07 13:19 | disposition home or self-care (01) ==
LOC: HO.MAMMO 13:18
PROVIDERS: PCP Internal Medicine; Visit Provider Internal Medicine
DX: M81.0 Age-related osteoporosis without current pathological fracture (principal)
CPT/HCPCS: 77081

== ENCOUNTER → 2025-04-07 13:30 | Outpatient (BNV) | payer OTHER, SELFPAY | PROVIDERS: PCP Internal Medicine; Visit Provider Radiology Diagnostic Radiology | DX: E28.39 Other primary ovarian failure (principal) | CPT/HCPCS: 77081 ==

== ENCOUNTER 2025-04-27 08:06 | Outpatient (AMB) | payer OTHER, SELFPAY ==
--- NOTE | 2025-04-27 08:14 | A.OFFVIS_ITS ---
Vital Signs 04/27/25 08:15 Height 5 ft 3 in Weight 119 lb 4.321 oz BMI 21.1 BP 98/60 Blood Pressure Location Rt brachial Position Sitting Pulse 65 Pulse Source Pulse Oximeter Pulse Oximetry (%) 99 Oxygen Delivery Method Room Air Intake Visit Reasons: Discuss results Intake Note: presents to office today for osteoporosis. Accompanied by: Self / Same As Patient Allergies alendronate sodium Adverse Reaction (Intermediate, Verified 04/27/25 08:14) med induced esophagitis HPI HPI Discuss results: Details: She feels well [facility] Medical History GERD (gastroesophageal reflux disease) Esophagitis Hypovitaminosis D Pelvic pain Adnexal fullness Vaginal discharge Menopausal vaginal dryness Toe ulcer Physical exam Mild major depression, single episode Bunion, left Right knee pain COVID-19 Snoring Leukopenia Unintentional weight loss Vertigo Back pain Surgical History Hx of colonoscopy History of esophagogastroduodenoscopy (EGD) History of tonsillectomy History of bunionectomy History of tubal ligation History of inguinal hernia repair Family History Father Lung cancer Mother COPD (chronic obstructive pulmonary disease) Stroke Lung cancer Paternal Aunt Breast cancer Daughter In good health Family/Other Substance use disorder Mental health disorder Social History Housing: House Alcohol intake: former Patient Tobacco Use Status: Former Tobacco user Tobacco use type: Cigarette e-Cigarette/Vaping Use: Never Used Second Hand Smoke Exposure: No service: Yes Current occupational status: employed 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 Good respiratory effort Skin: No lesions seen MSK: No tender joints. Normal range of motion of upper extremities and lower extremities. Normal cervical range of motion. Normal lumbar flexion. She has slight scoliosis. No kyphosis. Results Reviewed Results Reviewed: Reason For Exam: M81.0 - Age-related osteoporosis without current pathological fracture EXAMINATION: BONE DENSITOMETRY CLINICAL INDICATION: Age-related osteoporosis without current pathological fracture. COMPARISON: Previous exam October 2022 and November 2023 TECHNIQUE: Using a [employer] DXA System (software version: 13.1) manufactured by [employer], dual-energy x-ray absorptiometry was performed of the lumbar spine and left hip. The images are of good technical quality. Summary results are attached. FINDINGS: AP SPINE L1-L2 (excluding L3 and L4): The data of L1-L4 has been changed to exclude the L3 and L4 vertebral bodies, because degenerative sclerosis at these levels may cause overestimation of lumbar spine BMD 0.766 g/cm2, Z-score -1.8, T-score -3.3, 11.5% change from previous and 8.3% change from baseline. Osteoporosis. LEFT FEMUR, NECK: Current: BMD 0.727 g/cm2, Z-score -0.8, T-score -2.2. Osteopenia. 8% change from previous and 1.7% change from baseline. LEFT FEMUR, TOTAL: Current: BMD 0.809 g/cm2, Z-score -0.4, T-score -1.6, osteopenia, 4.5% change from previous and 6.6% change from baseline. LEFT FOREARM RADIUS 33%: BMD 0.653 g/cm2, Z-score -1.7, T-score -2.5, osteoporosis. No priors available. Assessment & Plan Assessment & Plan (1) Osteoporosis: Comment: Severe osteoporosis with lowest T-score -4.0 lumbar spine,-2.6 left femoral neck, -1.9 left total hip for improved on most recent bone density at all sites with Prolia. No history of fragility fracture. She is on calcium and vitamin-D supplement. She has had 3 Prolia injections with last injection January 2024. TSH and PTH normal. Risk factor: Family history with sister having osteopenia. At this point since she has had benefit on Prolia, I would continue Prolia with plan to repeat bone density in 2 years. Code(s): M81.0 - Age-related osteoporosis without current pathological fracture Category: Medical Qualifiers: Osteoporosis type: age-related Presence of current pathological fracture: without current pathological fracture Qualified Code(s): M81.0 - Age- related osteoporosis without current pathological fracture Plan: Plan to repeat bone density April 2027 She has sufficient vitamin-D with vitamin D supplement 2000 IU daily, which she will continue Calcium carbonate 600 mg daily prescribed She will be scheduled for nurse visit for Prolia July with plan to have labs 1 week prior to nurse visit Information on weight-bearing exercises given to patient. Continue home exercise program Return to clinic in 1 year Orders: Orders Calcium 2 Months M81.0 - Age-related osteoporosis without current pathological fracture Vitamin D 25-OH Total 2 Months M81.0 - Age-related osteoporosis without current pathological fracture Creatinine 2 Months M81.0 - Age-related osteoporosis without current pathological fracture, Z79.899 - Other shelter (current) drug therapy Albumin Level 2 Months M81.0 - Age-related osteoporosis without current pathological fracture Coding Level of Care Code Est Pt Level 4 (30583) Complex EM visit Add On G2211 Diagnoses Age-related osteoporosis without current pathological fracture M81.0 Osteoporosis type: age-related Presence of current pathological fracture: without current pathological fracture Time Spent (min) 20
[2025-04-27 08:15] VITALS: BP 98/60; PULSE 65; O2SAT 99; BMI 21.1
== END 2025-04-27 08:43 | disposition home or self-care (01) ==
LOC: HO.RHES 08:07
PROVIDERS: PCP Internal Medicine; Visit Provider Internal Medicine Rheumatology
DX: M81.0 Age-related osteoporosis without current pathological fracture (principal)
CPT/HCPCS: 99214; G2211

== ENCOUNTER → 2025-04-27 08:06 | Outpatient (BNVA) | payer OTHER, SELFPAY | PROVIDERS: PCP Internal Medicine; Visit Provider Internal Medicine Rheumatology | DX: M81.0 Age-related osteoporosis without current pathological fracture (principal) | CPT/HCPCS: 99212 ==

== ENCOUNTER 2025-07-04 16:11 | Outpatient (REF) | payer OTHER, SELFPAY ==
[2025-07-04 17:36] LABS: Albumin Level 4.5 g/dL (3.5-5.0); Calcium 9.0 mg/dL (8.4-10.2); Estimated Glomerular Filt Rate > 60
--- OUTSIDE RECORDS SUMMARY | 2025-07-04 19:06 | XMS_ITS | Patient Health Record ---
Author Organization [facility] Address [address] [facility] [address] [place] [address] Care Team Providers Care Dough Mixer Operator Name Role Phone Dash Mcleod Primary [...] primary osteoarthritis of the ankle and/or foot (003191380) Arthritis of midfoot (M19.079) Active confirmed Problem Hallux valgus of left foot (4026325280) Hallux valgus of left foot (M20.12) Active [...] Insured Coverage Start Date Coverage End Date [facility] [address] [place] [phone] [id number] Lindsey Heath Self - patient is the insured Medical (General) History Medical History History ICD Code Vertigo Mild Major Depression Leukopenia chronic lower back pain Surgical History Surgery Date(Month/Year) Bunionectomy right and left age 14 Inguinal Hernia Repair Tonsillectomy Tubal Ligation
--- OUTSIDE RECORDS SUMMARY | 2025-07-04 19:06 | XMS_ITS | Patient Health Record ---
Author Organization [facility] Address [address] [place] [address] Care Team Providers Care Channel Rebuilder Name Role Phone Daivd [place], Oma Primary Care Provider Unavail marysol Debby Diehl Unavailable [phone] Allergies No Known Allergies Reason For Referral [...] Status Risk Notes Problem Acquired hallux valgus (86397536) Hallux valgus (acquired), left foot (M20.12) Active confirmed Problem Acute osteomyelitis of ankle and/or foot (345366833) Osteomyelitis of foot, left, acute (M86.172) Active confirmed Plan Of Treatment Pending Test Test Name Order Date X ray : Foot, left 3V 11/13/2021 Insurance Providers Payer Name Payer Address Payer Phone Subscriber Number Group Number Insured Name Patient Relationship to Insured Coverage Start Date Coverage End Date [facility] [address] [place] [address] [id number] Daron Heath Spouse - patient is the spouse of the insured Medical (General) History Medical History History ICD Code Arthritis Measles Chicken pox Surgical History Surgery Date(Month/Year) B/L bunionectomy 1979 Left Inguinal hernia repair x2 tonsillectomy tubal ligation
== END 2025-07-04 16:12 | disposition home or self-care (01) ==
LOC: HO.LAB 16:11
PROVIDERS: PCP Internal Medicine; Visit Provider Internal Medicine Rheumatology
DX: M81.0 Age-related osteoporosis without current pathological fracture (principal); Z13.21 Encounter for screening for nutritional disorder; Z79.899 Other long term (current) drug therapy
CPT/HCPCS: 36415; 82040; 82306; 82310; 82565